=== PATIENT | female | born 1980 | race African-American/Black ===

== ENCOUNTER 2023-04-20 12:12 | Emergency (ER) | payer BC, SELFPAY ==
--- NOTE | 2023-04-20 12:15 | ED.GENADULT ---
HPI - General Adult General Chief complaint: Ear Stated complaint: Earache, Dizzy Time Seen by Provider: 04/20/23 12:15 Source: patient Mode of arrival: ambulatory Limitations: no limitations History of Present Illness HPI narrative: 42-year-old female patient presents to the [facility] with complaints of left ear pain for the past 2-3 days. Patient states she did take some Excedrin today. Patient states she has been getting a stabbing pain to the left ear denies any discharge. Denies any trauma to the ear. Denies any fevers, body aches or chills. Denies any runny nose or congestion or any other symptoms at this time. Related Data Allergies Allergy/AdvReac Type Severity Reaction Status Date / Time amoxicillin Allergy Severe Swelling Verified 04/20/23 12:29 of Lip/Tongue/Throat erythromycin base Allergy Severe Swelling Verified 04/20/23 12:30 of Lip/Tongue/Throat Penicillins Allergy Severe Swelling Verified 04/20/23 12:29 of Lip/Tongue/Throat tramadol AdvReac Mild Hives Verified 04/20/23 12:29 Review of Systems Review of Systems: CONSTITUTIONAL: Denies fever, chills, or sweats. EYES: Denies visual changes, redness, or discharge. ENT: Denies rhinorrhea, congestion, sore throat, Positive leftotalgia. CARDIOVASCULAR: Denies chest pain, palpitations, or edema. RESPIRATORY: Denies cough or dyspnea. GASTROINTESTINAL: Denies abdominal pain, nausea, vomiting, or diarrhea. GENITOURINARY: Denies dysuria or hematuria. SKIN: Denies rash or itching. MUSCULOSKELETAL: Denies back pain, joint pain, or myalgia. NEUROLOGIC: Denies headache, numbness, or weakness. PSYCHIATRIC: Denies anxiety or depression. PMFSH Comments At the time of my signature I agree with nursing past medical history, surgical, social, and family history. There is no relevant family history pertinent to the presenting complaint. Exam Narrative: GENERAL: Well-appearing, well-nourished, and in no acute distress. HEAD: Normocephalic, atraumatic. EYES: PERRLA and EOMI. ENT: Nares clear, no rhinorrhea or epistaxis. Mucous membranes moist. patient has narrowing and edema noted to the left ear canal unable to visualize the eardrum very well. There is pain with manipulation to the outer auricle. NECK: Supple. No lymphadenopathy CHEST: Clear to auscultation. No respiratory distress. HEART: Regular rate and rhythm. No murmur heard. Normal peripheral pulses. ABDOMEN: Soft, nontender, nondistended, normal active bowel sounds. EXTREMITIES: Normal range of motion. No edema. SKIN: Warm, dry, no rash. NEURO: No focal deficits. Alert and oriented x3. Course Course Level of Care: Express Care Visit Vital Signs Vital signs: Vital Signs Temperature 37.4 C 04/20/23 12:29 Pulse Rate 78 04/20/23 12:29 Respiratory Rate 16 04/20/23 12:29 Blood Pressure 114/73 04/20/23 12:29 Pulse Oximetry 100 04/20/23 12:29 Oxygen Delivery Room Air 04/20/23 12:29 Temperature 37.4 C 04/20/23 12:29 Pulse Rate 78 04/20/23 12:29 Respiratory Rate 16 04/20/23 12:29 Blood Pressure 114/73 04/20/23 12:29 Pulse Oximetry 100 04/20/23 12:29 Oxygen Delivery Room Air 04/20/23 12:29 Vital signs reviewed Medical Decision Making MDM Narrative Medical decision making narrative: plan cares to discharge home with antibiotic ear drops and encouraged to take [id number] ibuprofen to help with pain. Patient verbalized understanding denies any other questions or concerns at this time. Differential Diagnosis Differential Diagnosis: differential diagnosis: Otitis media, otitis externa, perforated TM, infection of the outer ear, foreign body or cerumen impaction, ruptured TM, acute mastoiditis, ligament otitis externa, dehydration, pneumonia, sepsis, dental or intraoral infection, TMJ dysfunction Vital Signs Vital Signs: Vital Signs Temperature 37.4 C 04/20/23 12:29 Pulse Rate 78 04/20/23 12:29 Respirat
[2023-04-20 12:29] VITALS: BP 114/73; PULSE 78; RESP 16; TEMP 37.4; O2SAT 100
== END 2023-04-20 12:42 | disposition home or self-care (01) ==
PROVIDERS: Emergency Provider Nurse Practitioner Family
DX: H60.92 Unspecified otitis externa, left ear (principal)
CPT/HCPCS: 99203; G0463

== ENCOUNTER 2024-05-04 12:41 | Emergency (ER) | payer OTHER, SELFPAY ==
[2024-05-04 12:51] VITALS: BP 104/59; PULSE 77; RESP 18; TEMP 36.8; O2SAT 100
--- NOTE | 2024-05-04 12:53 | ED.URI ---
HPI - URI/Sore Throat General Chief Complaint: Upper Respiratory Infection Stated Complaint: Cough, Sore Throat, Congestion, Ear Pain Time Seen by Provider: 05/04/24 12:59 Source: patient, RN notes reviewed and old records reviewed Mode of arrival: ambulatory Limitations: no limitations History of Present Illness HPI Narrative: patient began 1 week ago with URI symptoms that included runny nose, sore throat, cough. She states that she believes she probably had a fever at the onset of symptoms. fever has since subsided. She is now complaining of continued cough, hoarse voice, right ear pain and throat pain. She has taken multiple [id number] medications with moderate relief. denies any injury or trauma. no other concerns or complaints today Related Data Home Medications ?Medication ?Instructions ?Recorded ?Confirmed ?Last Taken ?Type cholecalciferol (vitamin D3) 25 25 mcg PO DAILY 05/04/24 Unknown History mcg (1,000 unit) capsule levothyroxine 25 mcg tablet mcg 05/04/24 Unknown History thiamine HCl (vitamin B1) 250 mg 250 mg PO DAILY 05/04/24 Unknown History tablet Allergies Allergy/AdvReac Type Severity Reaction Status Date / Time erythromycin base Allergy Severe Swelling Verified 05/04/24 13:01 of Lip/Tongue/Throat Penicillins Allergy Severe Swelling Verified 05/04/24 13:01 of Lip/Tongue/Throat tramadol Allergy Mild Hives Verified 05/04/24 13:01 Review of Systems Review of Systems: All systems reviewed & are unremarkable except as noted in HPI and below Constitutional: Constitutional: Reports as per HPI, Reports no additional constitutional complaints and Reports lethargy ENT: Reports system reviewed and no additional complaints, except as documented, Reports otalgia, Reports nasal congestion, Reports nasal discharge, Reports post nasal drip and Reports sore throat Cardiovascular: Cardiovascular: Reports no additional cardiovascular complaints Respiratory: Respiratory: Reports no additional respiratory complaints and Reports cough Gastrointestinal: Gastrointestinal: Reports no additional gastrointestinal complaints PMFSH Comments At the time of my signature, I reviewed and agree with the nursing past medical, surgical, social, and family history. There is no relevant family history pertinent to the patient complaint. Exam Const: General: cooperative, no acute distress, alert and awake Orientation/consciousness: oriented to person, oriented to place and oriented to time HENMT: Head: normal to inspection Ears: TM abnormal erythematous on the right, with fluid behind the TM on the left and with loss of landmarks bilateral Mouth: Yes moist mucous membranes Throat: posterior oropharynx abnormal erythema Resp: Effort & Inspection: normal respiratory effort and able to speak in complete sentences Auscultation: clear to auscultation bilaterally, no crackles, no rales, no rhonchi and no wheezes Cardio: Palpation: normal PMI Rate: regular rate Rhythm: regular rhythm Heart sounds: S1 normal heart sound present and S2 normal heart sound present Neuro: General: oriented to person, oriented to place and oriented to time Cranial nerves: Yes CN's II-XII intact bilaterally Psych: Appearance: grossly normal Thought process: Normal thought process present Insight: Good insight present (Psych) Judgement: Good judgement present (Psych) Course Course Level of Care: Express Care Visit Vital Signs Vital signs: Vital Signs Temperature 98.3 F 05/04/24 12:51 Pulse Rate 77 05/04/24 12:51 Respiratory Rate 18 05/04/24 12:51 Blood Pressure 104/59 L 05/04/24 12:51 Pulse Oximetry 100 05/04/24 12:51 Oxygen Delivery Room Air 05/04/24 12:51 Temperature 98.3 F 05/04/24 12:51 Pulse Rate 77 05/04/24 12:51 Respiratory Rate 18 05/04/24 12:51 Blood Pressure 104/59 L 05/04/24 12:51 Pulse Oximetry 100 05/04/24 12:51 Oxygen Delivery Room Air 05/04/24 12:51 Reviewed MDM - URI/Sore Throat MDM Narrative Medical decision making narrative: patient when otitis media, likely secondary to URI. Nontoxic appearing, stable for discharge home on p.o. antibiotic therapy with steroid burst. Discharge instructions reviewed with patient, as well as provided in writing per nursing staff. The instructions also include specific and strict return/GO TO THE ER as well as f/u information. All questions have been answered, and the patient deny any further questions with discharge and discharge plan. Some parts of this dictation were generated by voice recognition software and may contain typographical and/or grammatical inaccuracies. Differential Diagnosis Differential diagnosis: Likely upper respiratory infection, otitis media, sinusitis, viral infection, bronchitis and pharyngitis Medical Records Attestation: I reviewed the patient's medical records. Discharge Plan Discharge Clinical Impression: Otitis media Qualifiers: Otitis media type: suppurative Chronicity: acute Laterality: right Recurrence: not specified as recurrent Spontaneous tympanic membrane rupture: without spontaneous rupture Qualified Code(s): H66.001 - Acute suppurative otitis media without spontaneous rupture of ear drum, right ear Upper respiratory infection Qualifiers: URI type: unspecified viral URI Qualified Code(s): J06.9 - Acute upper respiratory infection, unspecified Patient Disposition: Home, Self-Care Condition: Stable Instructions: Antibiotic Form, Ear Infection (ED) Additional Instructions: take medications as prescribed. Follow with primary care provider. Emergency department for new or worse symptoms Patient Language: Romanian Prescriptions: New clindamycin HCl 300 mg capsule 300 mg PO TID Qty: 21 0RF prednisone 50 mg tablet 50 mg PO DAILY Qty: 5 0RF No Action levothyroxine 25 mcg tablet thiamine HCl (vitamin B1) 250 mg tablet 250 mg PO DAILY cholecalciferol (vitamin D3) 25 mcg (1,000 unit) capsule 25 mcg PO DAILY Follow-up/Referrals: UNKNOWN,DOCTOR [Primary Care Provider] - 2 Weeks Time of Disposition: 13:10
--- OUTSIDE RECORDS SUMMARY | 2024-05-04 13:10 | XMS_ITS | CONTINUITY OF CARE DOCUMENT ---
Author Name alva calle Address Unknown Organization [facility] Address [address] [place] [address] Phone [phone] Care Team Providers Care Camp Attendant Name Role Phone Prateek WALTER, Rony Unavailable [phone] ALLISON CHAMBERLAIN MD Unavailable ALLISON CHAMBERALIN MD Unavailable [phone] PROBLEMS Condition Status Date Provider Notes Deep Vein Thrombosis active ? Daysi arguello RN (History of) Pulmonary Embolism active ? Daysi Olivares RN (History of) ENCOUNTERS Date Type Provider Location Encounter Diag nosis - In-person encounter Office Visit Rony Chandra MD [facility] Office Deep Vein ThrombosisPulmonary Embolism VITAL SIGNS Date Observation Value Provider Body Mass Index (Ratio) 31.88 kg/m2 Natan Olivares RN blood pressure, cuff size regular Cr wyatt Lopez blood pressure, diastolic 69 mm[Hg] Cr wyatt Lopez blood pressure, systolic 120 mm[Hg] Cry stal John respiratory rate E&M 18 /min Keisha Lopez blood pressure, resting No Ame jostin Lopez pulse rate 90 /min Keisha guardado oxygen saturation, oximetry 99 % Keisha Lopez weight E&M 180 [lb_av] Keisha guardado height E&M 63 [in_i] Keisha guardado ALLERGIES Allergy Name Onset Date Reaction Criticality Status ERYTHROMYCIN High Criticality active TRAMADOL High Criticality active AMOXICILLIN Low Criticality active PENICILLIN breathing Low Criticality active HISTORY OF MEDICATION USE Medication Status Instructions Dates Provider Indications Com ments PROGESTERONE MICRONIZED 200 MG ORAL CAPSULE active daily Rony Chandra MD XARELTO 20 MG ORAL TABLET active take one tablet by mouth once daily Keisha Lopez SOCIAL HISTORY Date Observation Value Provider social history reviewed E&M reviewed - no changes required Rony Chandra MD social history E&M Patient has n ever smoked. Smoking History: P atient has never smoked. Rony Chandra MD smoking status Never smoker Rony Gutierrez FAMILY HISTORY Family Member Condition Father Family History of Hy pertension: Father Family History of Di abetes: Mother Family History of Se izure Disorders: INSURANCE PROVIDERS Payer name Policy type / Coverage type [facility] democrat ID [facility] [employer] [id number] ADVANCE DIRECTIVES Name Date DISCUSSED - NO DECISION MADE TREATMENT PLAN Date Name Performer Cardiology: 06/2017 s he had right leg cramp and severe pain. Found to have acute, occlussive right leg DVT (peroneal, popliteal). D iscussed conservative measures including thigh high 20-30mmHg compression stockings, leg elevation, and ambulation Rony Chandra MD Cardiology: follow-u p of PE, DVT. 06/2017 she had right leg cramp and severe pain. Found to have acute, occlussive right leg DVT (peroneal, popliteal). The next day, she had sudden onset of CP (described as someone standing on her chest) and couldn't breathe. 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 SHe had thrombectomy to right main pulmonary artery. She was sent home on Xarelto. Also her control was changed from estrogen based to progesterone based. W alks a lot at work, sometimes walks for 2 hours, stands a lot as well. Denies SOB, but has occasional CPs. [facility], she sometimes has left-sided chest pain, decribed as sharp pain, which radiates to upper left chest. Occurs at rest or with exertion. CP lasts 15-20 minutes. Feels better with pressure/massage. S ometimes she has pain which travels up her left neck, gets pounding headache, lasts 4-5 minutes and resolved. S he is non-smoker. S he works long days and has [address] to work [address] Rony Chandra MD HISTORY OF PROCEDURES Procedure Date Procedure Name Provider Procedure Notes S tatus EKG Rony Chandra MD completed
--- OUTSIDE RECORDS SUMMARY | 2024-05-04 13:10 | XMS_ITS | Clinical Summary ---
Author Organization [facility] Address [address] [place] [place] [address] Care Team Providers Care Nitric Acid Plant Operator Name Role Phone Antione Servin MD Primary Care Provider Unavaila ble Source Comments [facility],non-owned Affiliates and Associated Physician Practices is amultiple site organization consisting of ambulatory clinics and hospital sitesin [place], [place], [place]. This disclosure is being madepursuant to the Care Everywhere program and may not contain all information available regarding this patient. Last updated 17.[facility] Allergies Active Allergy Reactions Criticality Noted Date Comments Amoxicillin Shortness of Breath High 07/08/2017 Erythromycin 06/28/2009 Penicillins 06/28/2009 Peanut-Derived 06/28/2009 Medications * Be aware that medications may not be up to date on this document. Alwaysverify current medications with the patient. Medication Sig Dispensed Refills Start Date End Date Status cetirizine (ZYRTEC) 10 MG tablet Take 10 mg by mouth once daily Active rivaroxaban (XARELTO) 20 MG tabletIndications:Maricel p Vein Thrombosis Take 20 mg by mouth daily with food Reasons: Blood Clot in a Deep Vein Active oxyCODONE-acetaminoph en (PERCOCET) 5-325 MG tablet Take 1 tablet by mouth every 8 hours as needed for Pain 20 tablet 07/09/2017 Active Active Problems Problem Noted Date Diagnosed Date Altered mental status 07/08/2017 Facial droop 07/08/2017 Pulmonary embolus 06/13/2017 Chest pain 06/13/2017 Head injury 06/06/2010 Overview (01/06/2015): Injury, other and unspecified, knee, leg, ankle, and foot 06/05/2010 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 Overview (01/05/2018): IMO UPDT 01/06/2018 Iron deficiency anemia 07/03/2009 Leukocytosis, suspect 2/2 to steroids and PNA SOB (shortness of breath) 06/28/2009 Encounter for feeding tube placement 06/28/2009 Anaphylactic shock 06/28/2009 Systemic inflammatory response syndrome (SIRS) 0 06/28/2009 Resolved Problems Problem Noted Date Diagnosed Date Resolved Date Pneumonia due to organism 07/03/2009 Elevated troponin 06/29/2009 07/03/2009 Social History Tobacco Use Types Packs/Day Years Used Date Smoking Tobacco: Never Alcohol Use Standard Drinks/Week Comments Yes 0 (1 standard drink = 0.6 oz pur e alcohol) on occassion Sex and Gender Information Value Date Recorded Sex Assigned at Not on file Gender Identity Not on file Sexual Orientation Not on file Last Filed Vital Signs Vital Sign Reading Time Taken Comments Blood Pressure 100/64 07/09/2017 11:29 AM CDT Pulse 64 07/09/2017 11:29 AM CDT Temperature 36.8 ??C (98.2 ??F) 07/09/2017 11:29 AM C DT Respiratory Rate 16 07/09/2017 11:29 AM CDT Oxygen Saturation 100% 07/09/2017 11:29 AM CDT Inhaled Oxygen Concentration 40% 07/01/2009 1 0:00 AM CDT Weight 87.5 kg (193 lb) 07/08/2017 2:24 PM CDT Height 160 cm (5' 3 ) 07/08/2017 2:24 PM CDT Body Mass Index 34.19 07/08/2017 2:24 PM CDT Plan of Treatment Health Maintenance Due Date Last Done Comments MAMMOGRAM 1980 PAP SMEAR 1980 HIV SCREENING 12/23/1995 HEPATITIS C SCREENING 12/18/1998 DTAP/TDAP/TD VACCINES (1 - Tdap) 12/23/1999 HEPATITIS B VACCINE (1 of 3 - 19+ 3-dose series) 12/23/1999 LIPID TESTING 06/29/2014 06/29/2009 COVID-19 VACCINE (2023-2 5 season) 2023 INFLUENZA VACCINE (#1) 2023 DEPRESSION SCREENING 04/08/2024 ZOSTER VACCINE (1 of 2) 2030 HIB VACCINE Aged Out No longer eligi ble based on patient's age to complete this topic HPV VACCINE Aged Out No longer eligi ble based on patient's age to complete this topic MENINGOCOCCAL (Group B) VACCINE Aged Out No longer eligible based on patient's age to complete this topic MENINGOCOCCAL VACCINE Aged Out No jagdish varghese eligible based on patient's age to complete this topic PNEUMOCOCCAL VACCINE Aged Out No long er eligible based on patient's age to complete this topic Procedures Procedure Name Priority Date/Time Associated Diagnosis Comments LIPID PROFILE Add on 06/29/2009 12:10 AM CDT Pulm Congest/Hypostasis from Last 3 Months or Most Recently Relevant to Health Maintenance Results * (ABNORMAL) LIPID PROFILE (06/29/2009 12:10 AM CDT) Cholesterol 224(H) <200 mg/dl [facility] Triglycerides 101 <150 mg/dl [facility] HDL Cholesterol 41 >=40 mg/dl [facility] VLDL Calculated 20 <=30 mg/dl [facility] LDL Calculated 163(H) <100 mg/dl [facility] Cholesterol Risk Factor 5.46(H) <4.45 [facility] Comment Lipid [facility] Comment: ? Normal values based on [place] [employer] guidelines. ? LIPID PROFILE GUIDELINES ? Total Cholesterol ?Category ?-------- ? Less than 200 mg/dl ?Desirable level that puts you at lower ?risk for heart disease. ??A cholesterol ?level of 200 mg/dl or greater increases ?your risk. ? 200 to 239 mg/dl ? Borderline high ? 240 mg/dl and above ?High blood cholesterol. ??A person with ?this level has more than twice the risk ?of heart disease compared to someone ?whose cholesterol is below 200 mg/dl. ? HDL Cholesterol ?Category ?-------- ? Less than 40 mg/dl ? Low HDL cholesterol. ??A major risk ?factor for heart disease. ? 40 to 59 mg/dl ? Borderline low. ? 60 mg/dl and above ? High HDL cholesterol. ??An HDL of 60 ?and above is considered protective ?against heart disease. ? LDL Cholesterol ?Category ?-------- ? Less than 100 mg/dl ?Optimal ? 100 to 129 mg/dl ? Near or above optimal ? 130 to 159 mg/dl ? Borderline high ? 160 to 189 mg/dl ? High ? 190 mg/dl and above ?Very high ? Triglyceride ? Category ? -------- ? Less than 150 mg/dl ?Normal ? 150 to 199 mg/dl ? Borderline high ? 200 to 499 mg/dl ? High ? 500 mg/dl and above ?Very high BLOOD SPECIMEN / Unknown 06/29/2009 12:10 AM CDT 06/29/2009 7:56 AM CDT Alphonso Horton MD LAB - [facility] ORDERABLES [facility] [address] [place] [address] from Last 3 Months or Most Recently Relevant to Health Maintenance Advance Directives * Full Code (Latest Code Status on File) Date Activated Date Inactivated Comments 07/08/2017 2:12 PM 07/09/2017 6:35 PM * Full Code Date Activated Date Inactivated Comments 06/13/2017 11:23 PM 06/16/2017 3:32 PM * Full Code Date Activated Date Inactivated Comments 06/13/2017 6:47 PM 06/13/2017 11:23 PM * Full Code Date Activated Date Inactivated Comments 06/13/2017 5:43 PM 06/13/2017 6:47 PM * Full Code Date Activated Date Inactivated Comments 07/02/2009 7:36 PM 07/05/2009 5:06 AM Care Teams Nitric Acid Plant Operator Relationship Specialty Start Date End Date Antione Servin MD PCP - General Internal Medicine 07/08/17
--- OUTSIDE RECORDS SUMMARY | 2024-05-04 13:10 | XMS_ITS | Patient Health Summary ---
Author Organization [facility] Address [address] [place] [address] Care Team Providers Care Pharmacy Student Name Role Phone Antione Servin MD Primary Care Provider Unavaila ble Note from [facility],non-owned Affiliates and Associated Physician Practices is amultiple site organization consisting of ambulatory clinics and hospital sitesin [place] and [place]. This disclosure is being madepursuant to the Care Everywhere program and may not contain all information available regarding this patient. Last updated 17.[facility] Allergies * Amoxicillin(Shortness of Breath) -High Criticality * Erythromycin * Penicillins * Peanut-Derived Medications * Be aware that medications may not be up to date on this document. Alwaysverify current medications with the patient. 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 Iron deficiency anemia 07/03/2009 Leukocytosis, suspect 2/2 [...] Mass Index 34.19 07/08/2017 2:24 PM CDT Procedures * CARDIAC EKG ORDER(Performed 07/12/2017) * CARDIAC RHYTHM STRIP ORDER(Performed 07/12/2017) * MRI BRAIN WWO CONTRAST(Performed 07/09/2017) Performed for Altered mental status, unspecified altered mental status type * MRI ANGIO BRAIN ART LEE WO CONT(Performed 07/09/2017) Performed for Altered mental status, unspecified altered mental status type * CBC W AUTO DIFFERENTIAL(Performed 07/09/2017) Performed for Altered mental status, unspecified altered mental status type * BASIC METABOLIC PANEL (CALCIUM TOTAL)(Performed 07/09/2017) Performed for Altered mental status, unspecified altered mental status type * CARDIAC RHYTHM STRIP ORDER(Performed 07/08/2017) * TROPONIN I(Performed 07/08/2017) Performed for Facial droop * TROPONIN I(Performed 07/08/2017) Performed for Facial droop * XR CHEST 1VW PORTABLE(Performed 07/08/2017) Performed for SOB (shortness of breath), Chest pain, unspecified type, Facial droop * CT ANGIO CHEST PULM EMBOLISM(Performed 07/08/2017) Performed for SOB (shortness of breath), Chest pain, unspecified type, Facial droop * CT ANGIO BRAIN NECK STROKE(Performed 07/08/2017) Performed for Facial droop * INR WHOLE BLOOD - POINT OF CARE (IP) STROKE(Performed 07/08/2017) * CREATININE BLOOD - POINT OF CARE (IP)(Performed 07/08/2017) Performed for Facial droop * PT PTT PANEL(Performed 07/08/2017) Performed for Facial droop * NT-PRO BNP(Performed 07/08/2017) Performed for Facial droop * TROPONIN I(Performed 07/08/2017) Performed for Facial droop * COMPREHENSIVE METABOLIC PANEL(Performed 07/08/2017) Performed for Facial droop * CBC W AUTO DIFFERENTIAL(Performed 07/08/2017) Performed for Facial droop * EKG 12-LEAD(Performed 07/08/2017) Performed for SOB (shortness of breath), Chest pain, unspecified type, Facial droop * CT BRAIN STROKE(Performed 07/08/2017) Performed for Facial droop * GLUCOSE - POINT OF CARE(Performed 07/08/2017) * CARDIAC EKG ORDER(Performed 06/22/2017) * CARDIAC PROCEDURE ORDER(Performed 06/20/2017) * PT PTT PANEL(Performed 06/16/2017) * CBC W AUTO DIFFERENTIAL(Performed 06/16/2017) * PT PTT PANEL(Performed 06/15/2017) * CBC W AUTO DIFFERENTIAL(Performed 06/15/2017) * PTT(Performed 06/14/2017) * EKG 12-LEAD(Performed 06/14/2017) Performed for Chest pain on breathing * ECHOCARDIOGRAM 2D WITH DOPPLER(Performed 06/14/2017) Performed for Chest pain, unspecified type, Acute deep vein thrombosis (DVT) of proximal vein of right lower extremity (HCC), Other acute pulmonary embolism without acute cor pulmonale (HCC), Acute saddle pulmonary embolism without acute cor pulmonale (HCC), SOB (shortness of breath), Encounter forfeeding tube placement * PT PTT PANEL(Performed 06/14/2017) * T4 FREE DIRECT REFLEXED(Performed 06/14/2017) Performed for Other acute pulmonary embolism without acute cor pulmonale (HCC), Acute saddle pulmonary embolism without acute cor pulmonale (HCC) * PTT(Performed 06/14/2017) * TSH REFLEX FREE T4(Performed 06/14/2017) Performed for Other acute pulmonary embolism without acute cor pulmonale (HCC), Acute saddle pulmonary embolism without acute cor pulmonale (HCC) * BASIC METABOLIC PANEL (CALCIUM TOTAL)(Performed 06/14/2017) * CBC W AUTO DIFFERENTIAL(Performed 06/14/2017) * CULTURE VRE(Performed 06/13/2017) * CULTURE MRSA(Performed 06/13/2017) * ACT - POINT OF CARE(Performed 06/13/2017) Performed for Acute saddle pulmonary embolism without acute cor pulmonale (HCC) * CARDIAC CATH CONSULT(Performed 06/13/2017) * TROPONIN I(Performed 06/13/2017) * PTT(Performed 06/13/2017) * TROPONIN I(Performed 06/13/2017) * PULSE OXIMETRY, CONTINUOUS(Performed 06/13/2017) * ED CRITICAL CARE(Performed 06/13/2017) Performed for Acute saddle pulmonary embolism without acute cor pulmonale (HCC) * CT ANGIO CHEST PULM EMBOLISM(Performed 06/13/2017) Performed for Chest pain, unspecified type, Acute deep vein thrombosis (DVT) of proximal vein of right lower extremity (HCC) * XR CHEST 1VW PORTABLE(Performed 06/13/2017) Performed for Chest pain, unspecified type * PT PTT PANEL(Performed 06/13/2017) * HCG BLOOD QUALITATIVE(Performed 06/13/2017) * TROPONIN I(Performed 06/13/2017) * MAGNESIUM BLOOD(Performed 06/13/2017) * COMPREHENSIVE METABOLIC PANEL(Performed 06/13/2017) * CBC W AUTO DIFFERENTIAL(Performed 06/13/2017) * NT-PRO BNP(Performed 06/13/2017) * EKG 12-LEAD(Performed 06/13/2017) Performed for Chest pain, unspecified type * CARDIAC CATH(Performed 06/13/2017) * VAS RIGHT VENOUS DUPLEX LE(Performed 06/12/2017) Performed for Elevated d-dimer, Tenderness of right calf * HCG BETA BLOOD QUANTITATIVE(Performed 06/12/2017) * CK BLOOD(Performed 06/12/2017) * PT-INR(Performed 06/12/2017) * D-DIMER(Performed 06/12/2017) * COMPREHENSIVE METABOLIC PANEL(Performed 06/12/2017) * CBC W AUTO DIFFERENTIAL(Performed 06/12/2017) * CT HEAD WO CONTRAST(Performed 06/06/2010) Performed for Head injury, unspecified * XR FOOT LEFT 3VW OR MORE(Performed 06/06/2010) * XR ANKLE LEFT 3VW OR MORE(Performed 06/06/2010) * HCG URINE QUALITATIVE - POINT OF CARE(Performed 10/15/2009) * CARDIAC RHYTHM STRIP ORDER(Performed 07/15/2009) * GLUCOSE - POINT OF CARE(Performed 07/04/2009) Performed for Respiratory Abnorm NEC * CARDIAC RHYTHM STRIP ORDER(Performed 07/04/2009) * GLUCOSE - POINT OF CARE(Performed 07/04/2009) Performed for Respiratory Abnorm NEC * GLUCOSE - POINT OF CARE(Performed 07/03/2009) Performed for Respiratory Abnorm NEC * GLUCOSE - POINT OF CARE(Performed 07/03/2009) Performed for Respiratory Abnorm NEC * CK + CKMB PANEL(Performed 07/03/2009) Performed for Respiratory Abnorm NEC * TROPONIN I(Performed 07/03/2009) Performed for Respiratory Abnorm NEC * GLUCOSE - POINT OF CARE(Performed 07/03/2009) Performed for Respiratory Abnorm NEC * GLUCOSE - POINT OF CARE(Performed 07/03/2009) Performed for Respiratory Abnorm NEC * TROPONIN I(Performed 07/03/2009) Performed for Respiratory Abnorm NEC * BASIC METABOLIC PANEL (CALCIUM TOTAL)(Performed 07/03/2009) Performed for Respiratory Abnorm NEC * CBC W AUTO DIFFERENTIAL(Performed 07/03/2009) Performed for Respiratory Abnorm NEC * CK + CKMB PANEL(Performed 07/03/2009) Performed for Respiratory Abnorm NEC * CK + CKMB PANEL(Performed 07/02/2009) Performed for Respiratory Abnorm NEC * TROPONIN I(Performed 07/02/2009) Performed for Respiratory Abnorm NEC * GLUCOSE - POINT OF CARE(Performed 07/02/2009) Performed for Respiratory Abnorm NEC * BASIC METABOLIC PANEL (CALCIUM TOTAL)(Performed 07/02/2009) Performed for Shortness of Breath * CBC W AUTO DIFFERENTIAL(Performed 07/02/2009) Performed for Shortness of Breath * CULTURE BLOOD(Performed 07/02/2009) Performed for Shortness of Breath * XR CHEST 2VW(Performed 07/02/2009) Performed for SOB (Shortness of Breath) * BASIC METABOLIC PANEL (CALCIUM TOTAL)(Performed 07/02/2009) Performed for Pulm Congest/Hypostasis * CBC W AUTO DIFFERENTIAL(Performed 07/02/2009) Performed for Pulm Congest/Hypostasis * GLUCOSE - POINT OF CARE(Performed 07/01/2009) Performed for Pulm Congest/Hypostasis * GLUCOSE - POINT OF CARE(Performed 07/01/2009) Performed for Pulm Congest/Hypostasis * GLUCOSE - POINT OF CARE(Performed 07/01/2009) Performed for Pulm Congest/Hypostasis * XR CHEST 1VW PORTABLE(Performed 07/01/2009) Performed for Pulmonary Edema (HCC), SOB (Shortness of Breath) * GLUCOSE - POINT OF CARE(Performed 07/01/2009) Performed for Pulm Congest/Hypostasis * BLOOD GASES ARTERIAL(Performed 07/01/2009) Performed for Pulm Congest/Hypostasis * GLUCOSE - POINT OF CARE(Performed 07/01/2009) Performed for Pulm Congest/Hypostasis * BLOOD GASES ARTERIAL(Performed 07/01/2009) Performed for Pulm Congest/Hypostasis * GLUCOSE - POINT OF CARE(Performed 07/01/2009) Performed for Pulm Congest/Hypostasis * COMPREHENSIVE METABOLIC PANEL(Performed 07/01/2009) Performed for Pulm Congest/Hypostasis * CBC W AUTO DIFFERENTIAL(Performed 07/01/2009) Performed for Pulm Congest/Hypostasis * GLUCOSE - POINT OF CARE(Performed 07/01/2009) Performed for Pulm Congest/Hypostasis * GLUCOSE - POINT OF CARE(Performed 06/30/2009) Performed for Pulm Congest/Hypostasis * GLUCOSE - POINT OF CARE(Performed 06/30/2009) Performed for Pulm Congest/Hypostasis * GLUCOSE - POINT OF CARE(Performed 06/30/2009) Performed for Pulm Congest/Hypostasis * GLUCOSE - POINT OF CARE(Performed 06/30/2009) Performed for Pulm Congest/Hypostasis * XR CHEST 1VW PORTABLE(Performed 06/30/2009) Performed for Pulmonary Edema (HCC), SOB (Shortness of Breath) * CBC W AUTO DIFFERENTIAL(Performed 06/30/2009) Performed for Pulm Congest/Hypostasis * COMPREHENSIVE METABOLIC PANEL(Performed 06/30/2009) Performed for Pulm Congest/Hypostasis * GLUCOSE - POINT OF CARE(Performed 06/30/2009) Performed for Pulm Congest/Hypostasis * BLOOD GASES ARTERIAL(Performed 06/30/2009) Performed for Pulm Congest/Hypostasis * BLOOD GASES ARTERIAL(Performed 06/30/2009) Performed for Pulm Congest/Hypostasis * GLUCOSE - POINT OF CARE(Performed 06/30/2009) Performed for Pulm Congest/Hypostasis * GLUCOSE - POINT OF CARE(Performed 06/29/2009) Performed for Pulm Congest/Hypostasis * GLUCOSE - POINT OF CARE(Performed 06/29/2009) Performed for Pulm Congest/Hypostasis * POTASSIUM BLOOD(Performed 06/29/2009) Performed for Pulm Congest/Hypostasis * GLUCOSE - POINT OF CARE(Performed 06/29/2009) Performed for Pulm Congest/Hypostasis * CULTURE BLOOD(Performed 06/29/2009) Performed for Pulm Congest/Hypostasis * CULTURE BLOOD(Performed 06/29/2009) Performed for Pulm Congest/Hypostasis * ECHOCARDIOGRAM 2D WITH DOPPLER(Performed 06/29/2009) Performed for SOB (Shortness of Breath), Elevated Troponin * BENZODIAZEPINE URINE CONFIRMATION(Performed 06/29/2009) Performed for Pulm Congest/Hypostasis * URINE DRUG SCREEN IMMUNOASSAY(Performed 06/29/2009) Performed for Pulm Congest/Hypostasis * CK + CKMB PANEL(Performed 06/29/2009) Performed for Pulm Congest/Hypostasis * TROPONIN I(Performed 06/29/2009) Performed for Pulm Congest/Hypostasis * XR CHEST 1VW(Performed 06/29/2009) Performed for Pulmonary Edema (HCC), SOB (Shortness of Breath), Elevated Troponin * BLOOD GASES ARTERIAL(Performed 06/29/2009) Performed for Pulm Congest/Hypostasis * CT ANGIO CHEST(Performed 06/29/2009) Performed for SOB (Shortness of Breath) * B-TYPE NATRIURETIC PEPTIDE(Performed 06/29/2009) Performed for Pulm Congest/Hypostasis * LIPID PROFILE(Performed 06/29/2009) Performed for Pulm Congest/Hypostasis * HAPTOGLOBIN(Performed 06/29/2009) * LDH BLOOD(Performed 06/29/2009) * COMPREHENSIVE METABOLIC PANEL(Performed 06/29/2009) * CBC W AUTO DIFFERENTIAL(Performed 06/29/2009) * URINALYSIS REFLEX TO MICROSCOPIC NO CULTURE(Performed 06/29/2009) * HCG URINE QUALITATIVE(Performed 06/29/2009) * EKG 12-LEAD(Performed 06/29/2009) Performed for SOB (Shortness of Breath) * COAGULATION PANEL W D-DIMER(Performed 06/29/2009) * CULTURE VRE(Performed 06/29/2009) Performed for Pulm Congest/Hypostasis * CULTURE MRSA(Performed 06/29/2009) Performed for Pulm Congest/Hypostasis * CULTURE SPUTUM(Performed 06/29/2009) Performed for Pulm Congest/Hypostasis * LACTIC ACID BLOOD(Performed 06/28/2009) * CULTURE BLOOD(Performed 06/28/2009) Performed for Pulm Congest/Hypostasis * XR ABDOMEN KUB(Performed 06/28/2009) Performed for Encounter for Feeding Tube Placement * XR CHEST 1VW PORTABLE(Performed 06/28/2009) Performed for Pulmonary Edema (HCC), Allergy, Unspecified Not Elsewhere Classified, SOB (Shortness of Breath) * CK + CKMB PANEL(Performed 06/28/2009) * TROPONIN I(Performed 06/28/2009) * CULTURE BLOOD(Performed 06/28/2009) Performed for Pulm Congest/Hypostasis * BLOOD GASES ARTERIAL(Performed 06/28/2009) * XR CHEST 1VW PORTABLE(Performed 06/28/2009) Performed for Pulmonary Edema (HCC) * XR CHEST 1VW PORTABLE(Performed 06/28/2009) Performed for Allergy, Unspecified Not Elsewhere Classified * BLOOD GASES ART + COOX PANEL(Performed 06/28/2009) * XR CHEST 1VW PORTABLE(Performed 06/28/2009) * EKG 12-LEAD(Performed 06/28/2009) * HGB HCT PANEL(Performed 03/19/2008) Performed for Normal Delivery ([facility]) * URINALYSIS NO MICROSCOPIC NO CULTURE(Performed 03/19/2008) Performed for Normal Delivery ([facility]) * CULTURE URINE(Performed 03/19/2008) Performed for Normal Delivery ([facility]) * TYPE + SCREEN PANEL(Performed 03/19/2008) Performed for Normal Delivery ([facility]) * CBC W AUTO DIFFERENTIAL(Performed 03/19/2008) Performed for Normal Delivery ([facility]) Results * CARDIAC EKG ORDER (07/12/2017 7:33 PM CDT) Only the most recent of2 resultswithin the time period is included. Narrative 07/12/2017 7:33 PM CDT Ordered by an unspecified provider. Scanned Document CARDIAC SERVICES ORD ERABLES * CARDIAC RHYTHM STRIP ORDER (07/12/2017 1:38 AM CDT) Only the most recent of4 resultswithin the time period is included. Narrative 07/12/2017 1:38 AM CDT Ordered by an unspecified provider. Scanned Document CARDIAC SERVICES ORD ERABLES * MRI BRAIN WWO CONTRAST (07/09/2017 9:54 AM CDT) Anatomical Region Laterality Modality Head Magnetic Resonan ce 07/09/2017 11:0 2 AM CDT Impressions 07/09/2017 11:08 AM CDT Normal brain MRI. Narrative 07/09/2017 11:08 AM CDT MRI Brain With and Without Contrast Indication: Altered mental status Technique: Multisequence, multiplanar sequences of the brain with and without contrast, ??Dotarem 19 cc was administered. Findings: Prior CT brain from July 08, 2017. Prior CTA head and neck from July 08, 2017. The sella is unremarkable. No Chiari malformation. ??No diffusion restriction is seen to indicate ischemia. ??No mass, hemorrhage, or midline shift is seen. The ventricular size is normal. There are no extra-axial fluid collections. Flow void is seen in the major intracranial vessels. No abnormal enhancement is seen. The paranasal sinuses and mastoid air cells are clear. Procedure Note Nabor Bray MD - 07/09/2017 MRI Brain With and Without Contrast Indication: Altered mental status Technique: Multisequence, multiplanar sequences of the brain with and without contrast, Dotarem 19 cc was administered. Findings: Prior CT brain from July 08, 2017. Prior CTA head and neck from July 08, 2017. The sella is unremarkable. No Chiari malformation. No diffusion restriction is seen to indicate ischemia. No mass, hemorrhage, or midline shift is seen. The ventricular size is normal. There are no extra-axial fluid collections. Flow void is seen in the major intracranial vessels. No abnormal enhancement is seen. The paranasal sinuses and mastoid air cells are clear. IMPRESSION Normal brain MRI. Ameirco Bertrand MD MR ORDERABLES * MRI ANGIO BRAIN ART LEE WO CONT (07/09/2017 9:53 AM CDT) Anatomical Region Laterality Modality Head Magnetic Resonan ce 07/09/2017 11:0 8 AM CDT Impressions 07/09/2017 1:44 PM CDT Negative Narrative 07/09/2017 1:44 PM CDT MR of the head without contrast HISTORY: Altered mental status TECHNIQUE: Lawd-jz-meiaeh magnetic resonance venography of the head with MIP reconstructions FINDINGS: The right transverse sinus is dominant. No sinus thrombosis or cortical vein thrombosis is seen. Procedure Note Nabor Bray MD - 07/09/2017 MR of the head without contrast HISTORY: Altered mental status TECHNIQUE: Syfi-ma-fuiivr magnetic resonance venography of the head with MIP reconstructions FINDINGS: The right transverse sinus is dominant. No sinus thrombosis or cortical vein thrombosis is seen. IMPRESSION Negative Americo Bertrand MD MR ORDERABLES * CBC W AUTO DIFFERENTIAL (07/09/2017 3:57 AM CDT) Only the most recent of14 resultswithin the time period is included. WBC 5.1 4.4 - 10.7 x10E9/L 07/09/2017 4:58 AM CDT [facility] WBC Corrected x10E9/L 07/09/2017 4:58 AM CDT [facility] RBC 4.16 3.80 - 5.20 x10E12/L 07/09/2017 4:58 AM CDT [facility] Hemoglobin 12.4 12.0 - 15.6 gm/dL 07/09/2017 4:58 AM CDT [facility] Hematocrit 37.1 35.9 - 45.5 % 07/09/2017 4:58 AM CDT [facility] MCV 89.2 80.7 - 98.3 fl 07/09/2017 4:58 AM CDT [facility] MCH 29.8 26.7 - 34.0 pg 07/09/2017 4:58 AM CDT [facility] MCHC 33.4 30.8 - 35.9 gm/dL 07/09/2017 4:58 AM CDT [facility] Platelet Count 315 153 - 416 x10E9/L 07/09/2017 4:58 AM CDT [facility] RDW-CV 13.2 12.1 - 14.9 % 07/09/2017 4:58 AM CDT [facility] MPV 9.9 9.4 - 12.9 fl 07/09/2017 4:58 AM T [facility] Neutrophils % 53.2 44.0 - 73.0 % 07/09/2017 4:58 AM T [facility] Lymphocytes % 35.9 20.0 - 43.0 % 07/09/2017 4:58 AM T [facility] Monocytes % 7.6 5.0 - 13.0 % 07/09/2017 4:58 AM T [facility] Eosinophils % 2.7 0.0 - 6.0 % 07/09/2017 4:58 AM T [facility] Basophils % 0.4 0.0 - 2.0 % 07/09/2017 4:58 AM T [facility] Immature Granulocytes 0.2 0 - 1 % 07/09/2017 4:58 AM T [facility] Neutrophil Absolute 2.71 2.01 - 7.14 x10E9/L 07/09/2017 4:58 AM T [facility] Lymphocytes Absolute 1.83 1.07 - 3.94 x10E9/L 07/09/2017 4:58 AM T [facility] Monocytes Absolute 0.39 0.26 - 1.07 x10E9/L 07/09/2017 4:58 AM T [facility] Eosinophils Absolute 0.14 0 - 0.47 x10E9/L 07/09/2017 4:58 AM T [facility] Basophils Absolute 0.02 0 - 0.08 x10E9/L 07/09/2017 4:58 AM T [facility] Immature Granulocytes Absolute 0.01 0.00 - 0.06 x10E9/L 07/09/2017 4:58 AM [facility] nRBC Auto 0 /100 WBC 07/09/2017 4:58 AM [facility] Blood BLOOD SPECIMEN / Unknown Venipuncture / Unknown 07/09/2017 3:57 AM CDT 07/09/2017 4:47 AM CDT Americo Bertrand MD LAB - HEMATOLOGY ORD ERABLES Performing Organization Address City/[facility]/ZIP Co de Phone Number [facility] [address] [place] [address] * BASIC METABOLIC PANEL (CALCIUM TOTAL) (07/09/2017 3:57 AM CDT) Only the most recent of5 resultswithin the time period is included. [facility] Glucose 81 74 - 106 mg/dL 07/09/2017 5:17 AM CDT [facility] Sodium 140 136 - 145 mmol/L 07/09/2017 5:17 AM CDT [facility] Potassium 3.7 3.5 - 5.1 mmol/L 07/09/2017 5:17 AM CDT [facility] Chloride 107 98 - 107 mmol/L 07/09/2017 5:17 AM CDT [facility] CO2 22 22 - 31 mmol/L 07/09/2017 5:17 AM CDT [facility] Calcium 9.3 8.5 - 10.1 mg/dL 07/09/2017 5:17 AM CDT [facility] Anion Gap 11 8 - 16 mmol/L 07/09/2017 5:17 AM CDT [facility] BUN 9 7 - 21 mg/dL 07/09/2017 5:17 AM CDT [facility] Creatinine 0.97 0.50 - 1.30 mg/dL 07/09/2017 5:17 AM CDT [facility] eGFR by MDRD >60 >60 mL/min/1.7 3m2 07/09/2017 5:17 AM CDT [facility] eGFR by MDRD >60 >60 mL/min/1.7 3m2 07/09/2017 5:17 AM CDT [facility] Blood BLOOD SPECIMEN / Unknown Venipuncture / Unknown 07/09/2017 3:57 AM CDT 07/09/2017 4:47 AM CDT Ameirco Bertrand MD LAB - CHEMISTRY ORDE RABCARLA Performing Organization Address City/[facility]/ZIP Co de Phone Number [facility] [address] [place] [address] * TROPONIN I (07/08/2017 5:58 PM CDT) Only the most recent of11 resultswithin the time period is included. Troponin I <0.015 0.000 - 0.049 ng/mL 07/08/2017 6:18 PM CDT [facility] Blood BLOOD SPECIMEN / Unknown Venipuncture / Unknown 07/08/2017 5:58 PM CDT 07/08/2017 6:00 PM CDT Narrative [facility] - 07/08/2017 6:18 PM CDT Note: Diagnosis of myocardial infarction requires symptoms of ischemia or EKG changes of ischemia and Troponin I >99th of normal (0.05 ng/mL). Troponin should be drawn on initial assessment and 3-6 hours later as clinically indicated. Any condition resulting in myocardial cell damage can increase cardiac troponin levels. In addition to myocardial infarction, these include but are not limited to congestive heart failure (CHF), arrhythmia, myocarditis, and non-cardiac related causes such as pulmonary embolism, renal failure and sepsis. Americo Bertrand MD LAB - [facility] Organization Address City/State/ZIP Co de Phone Number [facility] [address] [place] [id number] * XR CHEST 1VW PORTABLE (07/08/2017 12:04 PM CDT) Only the most recent of8 resultswithin the time period is included. Anatomical Region Laterality Modality Chest Radiographic Cyndie ging 07/08/2017 12:2 5 PM CDT Impressions 07/08/2017 12:26 PM CDT No acute disease. Narrative 07/08/2017 12:26 PM CDT Portable Chest AP History: Shortness of breath. COMPARISON: June 13, 2017 FINDINGS: The lungs are clear without airspace consolidation or pulmonary edema. No pneumothorax or pleural effusion is seen. The cardiomediastinal contour is unremarkable. Procedure Note José Antonio Holliday MD - 07/08/2017 Portable Chest AP History: Shortness of breath. COMPARISON: June 13, 2017 FINDINGS: The lungs are clear without airspace consolidation or pulmonary edema. No pneumothorax or pleural effusion is seen. The cardiomediastinal contour is unremarkable. IMPRESSION No acute disease. Americo Bertrand MD DIAGNOSTIC IMAGING O RDERABLES * CT CHEST PE (07/08/2017 11:45 AM CDT) Only the most recent of2 resultswithin the time period is included. Anatomical Region Laterality Modality Chest Computed Tomogra phy 07/08/2017 12:1 7 PM CDT Impressions 07/08/2017 12:20 PM CDT Previously described pulmonary emboli have resolved Narrative 07/08/2017 12:[address] Thorax With Contrast CT MIP reconstructions Clinical Indication: Chest pain, shortness of breath Comparison: 06/13/2017 Technique: The pulmonary embolus protocol was utilized. Axial CT images from the lung apices to the lung bases were obtained following 60 cc Visipaque 320 contrast administration. Coronal maximum intensity projection reconstructions were created on an independent workstation. FINDINGS: Previously described pulmonary emboli are no longer identified. Heart size is stable. There is no pericardial or pleural effusion. There is no focal consolidation. There is no pneumothorax. A discrete pulmonary mass is not identified. There is prominence of the central pulmonary vascularity. Procedure Note Vineet Mendiola MD - 07/08/2017 CT Thorax With Contrast CT MIP reconstructions Clinical Indication: Chest pain, shortness of breath Comparison: 06/13/2017 Technique: The pulmonary embolus protocol was utilized. Axial CT images from the lung apices to the lung bases were obtained following 60 cc Visipaque 320 contrast administration. Coronal maximum intensity projection reconstructions were created on an independent workstation. FINDINGS: Previously described pulmonary emboli are no longer identified. Heart size is stable. There is no pericardial or pleural effusion. There is no focal consolidation. There is no pneumothorax. A discrete pulmonary mass is not identified. There is prominence of the central pulmonary vascularity. IMPRESSION Previously described pulmonary emboli have resolved Americo Bertrand MD CT ORDERABLES * CT ANGIO BRAIN NECK STROKE (07/08/2017 11:32 AM CDT) Anatomical Region Laterality Modality Head Computed Tomogra phy 07/08/2017 11:5 2 AM CDT Impressions 07/08/2017 11:56 AM CDT No evidence of hemodynamically significant stenosis. CTA Brain: The internal carotid arteries, middle cerebral arteries, anterior cerebral arteries, vertebral arteries, posterior cerebral arteries, basilar artery, and branch vessels of the [place] are widely patent without evidence of vessel stenosis or vessel occlusion. No intracranial aneurysms are identified. Impression: No flow-limiting intracranial arterial stenosis. Narrative 07/08/2017 11:[address] angiography neck with contrast CT angiography head with contrast CT 3D Reconstruction Clinical Indication: Left-sided facial droop, left-sided weakness, acute stroke, CVA Technique: Axial CT images from the transverse aortic arch through the cranial vertex were obtained following the administration of 80 cc Omnipaque-350 intravenous contrast. Multiplanar reformatted, maximum intensity projection, and 3D volume rendered reconstructions of the arterial vasculature of the neck and brain was performed on an independent workstation. Findings: CTA Neck: Indirect assessment of the distal portions of the bilateral internal carotid arteries relative to the proximal portions reveals no hemodynamically significant stenosis. There is wide patency of the common carotid, internal carotid, external carotid, and vertebral arteries. There is no evidence of vessel stenosis or vessel occlusion. The left vertebral artery is dominant. Procedure Note Coco Wang MD - 07/08/2017 CT angiography neck with contrast CT angiography head with contrast CT 3D Reconstruction Clinical Indication: Left-sided facial droop, left-sided weakness, acute stroke, CVA Technique: Axial CT images from the transverse aortic arch through the cranial vertex were obtained following the administration of 80 cc Omnipaque-350 intravenous contrast. Multiplanar reformatted, maximum intensity projection, and 3D volume rendered reconstructions of the arterial vasculature of the neck and brain was performed on an independent workstation. Findings: CTA Neck: Indirect assessment of the distal portions of the bilateral internal carotid arteries relative to the proximal portions reveals no hemodynamically significant stenosis. There is wide patency of the common carotid, internal carotid, external carotid, and vertebral arteries. There is no evidence of vessel stenosis or vessel occlusion. The left vertebral artery is dominant. IMPRESSION No evidence of hemodynamically significant stenosis. CTA Brain: The internal carotid arteries, middle cerebral arteries, anterior cerebral arteries, vertebral arteries, posterior cerebral arteries, basilar artery, and branch vessels of the [place] are widely patent without evidence of vessel stenosis or vessel occlusion. No intracranial aneurysms are identified. Impression: No flow-limiting intracranial arterial stenosis. Americo Bertrand MD CT ORDERABLES * INR WHOLE BLOOD - POINT OF CARE (IP) STROKE (07/08/2017 11:25 AM CDT) INR POCT 1.1 0.9 - 1.2 [facility] POCT TESTING QC Verified Yes Yes [facility] POC T TESTING Blood BLOOD SPECIMEN / Unknown 07/08/2017 11:25 AM CDT Mellissa Tyson MD LAB - POINT OF CARE ORDERABLES Performing Organization Address [facility] Co de Phone Number [facility] PO[facility] TESTING [id number] [place] [address], [facility] [phone] * CREATININE BLOOD - POINT OF CARE (IP) (07/08/2017 11:25 AM CDT) Creatinine POCT 0.96 0.7 - 1.2 mg/dL [facility] POCT TESTING QC Verified Yes Yes [facility] POC T TESTING Blood BLOOD SPECIMEN / Unknown 07/08/2017 11:25 AM CDT Americo Bertrand MD LAB - POINT OF CARE ORDERABLES Performing Organization Address [facility] Co de Phone Number [facility] [id number] [place] [address], [facility] [phone] * NT-PRO BNP (07/08/2017 11:23 AM CDT) Only the most recent of2 resultswithin the time period is included. NT-proBNP 31.0 <300.0 pg/mL 07/08/2017 11:49 AM CDT [facility] Blood BLOOD SPECIMEN / Unknown Venipuncture / Unknown 07/08/2017 11:23 AM CDT 07/08/2017 11:28 AM CDT Narrative [facility] - 07/08/2017 11:49 AM CDT NT-proBNP Patient Age ? Acute HF Unlikely ? Acute HF Likely <50 years ? <300 pg/mL ? >450 pg/mL 50-75 years ?<300 pg/mL ? >900 pg/mL >75 years ? <300 pg/mL ? >1800 pg/mL Reference: PEYTON Witt et al. ICON Study. Heart Journal (2006) 27, [phone] Both BNP and NT-proBNP derive from the precursor molecule called proBNP which is secreted from the ventricles in response to ventricle volume expansion and/or pressure overload. The secreted proBNP is subsequently cleaved by enzymes to form BNP, the active hormone and NT-proBNP an inactive metabolite. NT-proBNP has a longer half-life of 1.5-2.0 hours verses BNP with a half-life of 20 min for BNP. Both are useful biomarkers of ventricular distension due to increased intracardiac pressure. Both BNP and NT-proBNP increase with age and renal insufficiency. Increased concentrations of NT-proBNP have also been observed in the setting of acute myocardial infarction, right ventricular failure, valvular heart disease, and atrial fibrillation. Americo Bertrand MD LAB - CHEMISTRY [facility] Organization Address City/State/ZIP Co de Phone Number [facility] [address] [place] [address] * PT PTT PANEL (07/08/2017 11:23 AM CDT) Only the most recent of5 resultswithin the time period is included. PT 11.0 9.5 - 11.6 sec 07/08/2017 11:43 AM CDT [facility] INR 1.0 0.9 - 1.1 07/08/2017 11:43 AM CDT [facility] PTT 25.6 21.0 - 32.0 sec 07/08/2017 11:43 AM CDT [facility] Blood BLOOD SPECIMEN / Unknown Venipuncture / Unknown 07/08/2017 11:23 AM CDT 07/08/2017 11:28 AM CDT Narrative [facility] - 07/08/2017 11:43 AM CDT Conventional Warfarin Anticoagulant Therapy: INR Reference Range: ??2.0-3.0 Intensive Warfarin Anticoagulant Therapy: INR Reference Range: ? 2.5-3.5 Heparin Therapeutic Range for PTT: 47.7 - 68.6 seconds. Americo Bertrand MD LAB - COAGULATION OR DERABLES [facility] [address] [place] [address] * (ABNORMAL) COMPREHENSIVE METABOLIC PANEL (07/08/2017 11:23 AM CDT) Only the most recent of6 resultswithin the time period is included. [facility] Glucose 86 74 - 106 mg/dL 07/08/2017 11:48 AM CDT [facility] Sodium 139 136 - 145 mmol/L 07/08/2017 11:48 AM CDT [facility] Potassium 3.9 3.5 - 5.1 mmol/L 07/08/2017 11:48 AM CDT [facility] Chloride 108(H) 98 - 107 mmol/L 07/08/2017 11:48 AM CDT [facility] CO2 24 22 - 31 mmol/L 07/08/2017 11:48 AM CDT [facility] Calcium 8.5 8.5 - 10.1 mg/dL 07/08/2017 11:48 AM CDT [facility] Anion Gap 7(L) 8 - 16 mmol/L 07/08/2017 11:48 AM CDT [facility] BUN 6(L) 7 - 21 mg/dL 07/08/2017 11:48 AM CDT [facility] Creatinine 1.10 0.50 - 1.30 mg/dL 07/08/2017 11:48 AM CDT [facility] Alkaline Phosphatase 88 38 - 126 U/L 07/08/2017 11:48 AM CDT [facility] ALT 20 13 - 61 U/L 07/08/2017 11:48 AM CDT [facility] AST 15 5 - 40 U/L 07/08/2017 11:48 AM CDT [facility] Protein Total 7.6 6.4 - 8.2 gm/dL 07/08/2017 11:48 AM CDT [facility] Albumin 3.7 3.4 - 5.0 gm/dL 07/08/2017 11:48 AM CDT [facility] Bilirubin Total 0.9 0.2 - 1.0 mg/dL 07/08/2017 11:48 AM CDT [facility] eGFR by MDRD 56(L) >60 mL/min/1.7 3m2 07/08/2017 11:48 AM CDT [facility] eGFR by MDRD >60 >60 mL/min/1.7 3m2 07/08/2017 11:48 AM CDT [facility] Blood BLOOD SPECIMEN / Unknown Venipuncture / Unknown 07/08/2017 11:23 AM CDT 07/08/2017 11:28 AM CDT Americo Bertrand MD LAB - CHEMISTRY ORDE TRIST[place] [facility] [address] [place] [address] * EKG 12-LEAD (07/08/2017 11:18 AM CDT) Only the most recent of5 resultswithin the time period is included. Ventricular Rate 89 BPM [facility] MUSE Atrial Rate 89 BPM [facility] P-R Interval 134 ms [facility] QRS Duration ms 80 ms [facility] Q-T Interval ms 364 ms [facility] M[facility] QTC Calculation (Bezet) 442 ms [facility] MUSE Calculated P [place] 25 degrees [facility] MUSE Calculated R [place] 40 degrees [facility] MUSE Calculated T [place] 23 degrees [facility] Interpretation EKG Normal sinus rhythm Normal ECG Confirmed by BLANCHE MORENO MD ([id number]) on 07/08/2017 3:47:49 PM [facility] MUSE 07/08/2017 11:1 8 AM CDT 07/08/2017 3:47 PM CDT Americo Bertrand MD ECG ORDERABLES DP MUSE * CT BRAIN STROKE PROTOCOL (07/08/2017 11:13 AM CDT) Anatomical Region Laterality Modality Head Computed Tomogra phy 07/08/2017 11:2 0 AM CDT Narrative 07/08/2017 11:22 AM CDT Examination: Noncontrast CT brain. Indication for examination: Cerebral infarction with left-sided numbness and weakness. An emergency noncontrast CT examination of the brain is performed with 5 mm helical technique. Comparison is made with June 06, 2010. No acute intracranial hemorrhage is identified. There is no mass lesion or fluid collection. No discrete parenchymal abnormality is identified. Ventricles and subarachnoid pathways are normal in size and configuration. CONCLUSION: Unremarkable CT brain. No change from the previous. Procedure Note José Antonio Bobby MD - 07/08/2017 Examination: Noncontrast CT brain. Indication for examination: Cerebral infarction with left-sided numbness and weakness. An emergency noncontrast CT examination of the brain is performed with 5 mm helical technique. Comparison is made with June 06, 2010. No acute intracranial hemorrhage is identified. There is no mass lesion or fluid collection. No discrete parenchymal abnormality is identified. Ventricles and subarachnoid pathways are normal in size and configuration. CONCLUSION: Unremarkable CT brain. No change from the previous. Americo Bertrand MD CT ORDERABLES * GLUCOSE - POINT OF CARE (07/08/2017 11:11 AM CDT) Only the most recent of24 resultswithin the time period is included. Glucose WB/POC 100 70 - 106 mg/dL 07/09/2017 9:21 AM CDT [facility] Specimen Type UNKNOWN SAMPLE TYPE 07/09/2017 9:21 AM CDT [facility] Blood BLOOD SPECIMEN / Unknown 07/08/2017 11:11 AM CDT 07/09/2017 9:21 AM CDT Americo Bertrand MD LAB - POINT OF CARE ORDERABLES [facility] [address] [place] [address] * CARDIAC PROCEDURE ORDER (06/20/2017 3:03 AM CDT) Narrative 06/20/2017 3:03 AM CDT Ordered by an unspecified provider. Scanned Document CARDIAC SERVICES ORD ERABLES * (ABNORMAL) PTT (06/14/2017 4:42 PM EPIC MANAGER) Only the most recent of3 resultswithin the time period is included. PTT 55.5(H) 21.0 - 32.0 sec 06/14/2017 5:07 PM EPIC MANAGER [facility] Blood BLOOD SPECIMEN / Unknown Venipuncture / Unknown 06/14/2017 4:42 PM EPIC MANAGER 06/14/2017 4:51 PM EPIC MANAGER Narrative [facility] - 06/14/2017 5:07 PM EPIC MANAGER Heparin Therapeutic Range for PTT: 47.7 - 68.6 seconds. Barbara Wood MD LAB - COAGULATION OR DERABLES [facility] [address] [place], [place] [id number] * ECHOCARDIOGRAM 2D WITH DOPPLER (06/14/2017 9:23 AM EPIC MANAGER) Only the most recent of2 resultswithin the time period is included. 06/14/2017 9:23 AM EPIC MANAGER Narrative [facility] - 06/15/2017 11:23 AM EPIC MANAGER [address] [address] Transthoracic Echocardiogram 2D, M-mode, Doppler, and Color Doppler Patient: RADHA MCKEON MR number: [id number] Height: 63 in Weight: 175.6 lb BSA: 1.83 m?? Study date: 14-Jun-2017 : 1980 Age: 36 years Gender: Female Race: Black Allergies: PENICILLINS, ERYTHROMYCIN, PEANUT-DERIVED Reading Physician: ??Tori Chandra MD Referring Physician: ??Tori Chandra MD WEAVE DEFECT CHARTING CLERK: ??Harmony Lopez [facility] Cardiology Group: ??[facility] Summary: - ??History: - ??DVT - ??Procedure information: - ??Room 306 @ 0923 - ??Left ventricle: - ??Systolic function was normal. Ejection fraction was estimated in the range of 55 % to 65 %. - ??There were no regional wall motion abnormalities. - ??Wall thickness was normal. - ??Doppler parameters were consistent with abnormal left ventricular relaxation (grade 1 diastolic dysfunction). - ??Right ventricle: - ??The ventricle was moderately dilated. - ??Systolic function was mildly reduced. - ??Pulmonary arteries: - ??Systolic pressure was moderately increased. Estimated peak pressure was 50 mmHg. - ??Tricuspid valve: - ??There was mild to moderate regurgitation. Indications: Evaluate chest pain. History: Prior history: DVT Procedure: The study was performed in the [facility]. This was a routine study. Room 306 @ 0923 The transthoracic approach was used. The study included complete 2D imaging, M-mode, complete spectral Doppler, and color Doppler. Systolic blood pressure was 115 mmHg. Diastolic blood pressure was 77 mmHg. Image quality was adequate. Left ventricle: Size was normal. Systolic function was normal. Ejection fraction was estimated in the range of 55 % to 65 %. There were no regional wall motion abnormalities. Wall thickness was normal. Doppler: Doppler parameters were consistent with abnormal left ventricular relaxation (grade 1 diastolic dysfunction). There was no evidence of elevated ventricular filling pressure by Doppler parameters. Aortic valve: The valve was trileaflet. Leaflets exhibited normal thickness and normal cuspal separation. Doppler: There was no stenosis. There was no regurgitation. Aorta: The root exhibited normal size. Mitral valve: Valve structure was normal. There was normal leaflet separation. Doppler: The transmitral velocity was within the normal range. There was no evidence for stenosis. There was no regurgitation. Left atrium: Size was normal. Right ventricle: The ventricle was moderately dilated. Systolic function was mildly reduced. Wall thickness was normal. Pulmonic valve: Leaflets exhibited normal thickness, no calcification, and normal cuspal separation. Doppler: There was no regurgitation. Pulmonary artery: The size was normal. Doppler: Systolic pressure was moderately increased. Estimated peak pressure was 50 mmHg. Tricuspid valve: The valve structure was normal. There was normal leaflet separation. Doppler: The transtricuspid velocity was within the normal range. There was no evidence for tricuspid stenosis. There was mild to moderate regurgitation. Right atrium: Size was normal. Pericardium: The pericardium was normal in appearance. System measurement tables 2D LVOT Diam: 2 cm IVSd: 1 cm LVEDV MOD A4C: 74.9 ml LVESV MOD A4C: 17 ml LVIDd: 4.4 cm LVIDs: 2.9 cm LVPWd: 1 cm CW PV Vmax: 1 m/s AV Vmax: 1 m/s AV maxP.1 mmHg AV meanP.3 mmHg PV maxP mmHg TR Vmax: 3.3 m/s TR maxP.5 mmHg MM LA Diam: 2.5 cm Ao Diam: 2.7 cm PW LVOT Vmax: 0.9 m/s Lateral E/e': 3.1 Septal E/e': 4.5 ESTELITA (VTI): 2.5 cm2 ESTELITA Vmax: 2.9 cm2 LVOT Env.Ti: 229.2 ms LVOT Vmean: 0.6 m/s Lateral e': 0.1 m/s MV A [place]: 0.6 m/s MV Dec [place]: 2.2 m/s2 MV DecT: 212.2 ms MV E [place]: 0.5 m/s MV E/A Ratio: 0.8 Septal e': 0.1 m/s Prepared and signed by Tori Chandra MD Signed 15-Jun-2017 11:23:38 Procedure Note Unknown, Provider, - 06/15/[address] [address] Transthoracic Echocardiogram 2D, M-mode, Doppler, and Color Doppler Patient: RADHA MCKEON MR number: [id number] Height: 63 in Weight: 175.6 lb BSA: 1.83 m?? Study date: 14-Jun-2017 : 1980 Age: 36 years Gender: Female Race: Black Allergies: PENICILLINS, ERYTHROMYCIN, PEANUT-DERIVED Reading Physician: Tori Chandra MD Referring Physician: Tori Chandra MD WEAVE DEFECT CHARTING CLERK: Harmony Lopez RDCS Cardiology Group: [facility] Summary: - History: - DVT - Procedure information: - Room 306 @ 0923 - Left ventricle: - Systolic function was normal. Ejection fraction was estimated in the range of 55 % to 65 %. - There were no regional wall motion abnormalities. - Wall thickness was normal. - Doppler parameters were consistent with abnormal left ventricular relaxation (grade 1 diastolic dysfunction). - Right ventricle: - The ventricle was moderately dilated. - Systolic function was mildly reduced. - Pulmonary arteries: - Systolic pressure was moderately increased. Estimated peak pressure was 50 mmHg. - Tricuspid valve: - There was mild to moderate regurgitation. Indications: Evaluate chest pain. History: Prior history: DVT Procedure: The study was performed in the [facility]. This was a routine study. Room 306 @ 0923 The transthoracic approach was used. The study included complete 2D imaging, M-mode, complete spectral Doppler, and color Doppler. Systolic blood pressure was 115 mmHg. Diastolic blood pressure was 77 mmHg. Image quality was adequate. Left ventricle: Size was normal. Systolic function was normal. Ejection fraction was estimated in the range of 55 % to 65 %. There were no regional wall motion abnormalities. Wall thickness was normal. Doppler: Doppler parameters were consistent with abnormal left ventricular relaxation (grade 1 diastolic dysfunction). There was no evidence of elevated ventricular filling pressure by Doppler parameters. Aortic valve: The valve was trileaflet. Leaflets exhibited normal thickness and normal cuspal separation. Doppler: There was no stenosis. There was no regurgitation. Aorta: The root exhibited normal size. Mitral valve: Valve structure was normal. There was normal leaflet separation. Doppler: The transmitral velocity was within the normal range. There was no evidence for stenosis. There was no regurgitation. Left atrium: Size was normal. Right ventricle: The ventricle was moderately dilated. Systolic function was mildly reduced. Wall thickness was normal. Pulmonic valve: Leaflets exhibited normal thickness, no calcification, and normal cuspal separation. Doppler: There was no regurgitation. Pulmonary artery: The size was normal. Doppler: Systolic pressure was moderately increased. Estimated peak pressure was 50 mmHg. Tricuspid valve: The valve structure was normal. There was normal leaflet separation. Doppler: The transtricuspid velocity was within the normal range. There was no evidence for tricuspid stenosis. There was mild to moderate regurgitation. Right atrium: Size was normal. Pericardium: The pericardium was normal in appearance. System measurement tables 2D LVOT Diam: 2 cm IVSd: 1 cm LVEDV MOD A4C: 74.9 ml LVESV MOD A4C: 17 ml LVIDd: 4.4 cm LVIDs: 2.9 cm LVPWd: 1 cm CW PV Vmax: 1 m/s AV Vmax: 1 m/s AV maxP.1 mmHg AV meanP.3 mmHg PV maxP mmHg TR Vmax: 3.3 m/s TR maxP.5 mmHg MM LA Diam: 2.5 cm Ao Diam: 2.7 cm PW LVOT Vmax: 0.9 m/s Lateral E/e': 3.1 Septal E/e': 4.5 ESTELITA (VTI): 2.5 cm2 ESTELITA Vmax: 2.9 cm2 LVOT Env.Ti: 229.2 ms LVOT Vmean: 0.6 m/s Lateral e': 0.1 m/s MV A [place]: 0.6 m/s MV Dec [place]: 2.2 m/s2 MV DecT: 212.2 ms MV E [place]: 0.5 m/s MV E/A Ratio: 0.8 Septal e': 0.1 m/s Prepared and signed by Tori Chandra MD Signed 15-Jun-2017 11:23:38 Shannan HAMMER-C ECHO ORDERABLES Performing Organization Address [facility] Co de Phone Number [facility] * T4 FREE DIRECT REFLEXED (06/14/2017 2:54 AM EPIC MANAGER) T4 Free 1.17 0.65 - 1.34 ng/dL 06/14/2017 3:50 AM EPIC MANAGER [facility] Blood BLOOD SPECIMEN / Unknown Venipuncture / Unknown 06/14/2017 2:54 AM EPIC MANAGER 06/14/2017 3:06 AM EPIC MANAGER Shannan Elaine Macario HAMMER-C LAB - CHEMISTRY ORDE RABCARLA Performing Organization Address [facility] de Phone Number [facility] [id number] [place] [address] * (ABNORMAL) TSH REFLEX FREE T4 (06/14/2017 2:54 AM EPIC MANAGER) TSH 8.91(H) 0.358 - 3.740 ulU/mL 06/14/2017 3:38 AM EPIC MANAGER [facility] Blood BLOOD SPECIMEN / Unknown Venipuncture / Unknown 06/14/2017 2:54 AM EPIC MANAGER 06/14/2017 3:06 AM EPIC MANAGER Shannan HAMMER-C LAB - CHEMISTRY ORDE RABCARLA Performing Organization Address [facility] Co de Phone Number [facility] [address] [place] [address] * CULTURE VRE (06/13/2017 11:38 PM EPIC MANAGER) Only the most recent of2 resultswithin the time period is included. Culture Negative for vancomycin-resi stant Enterococci (VRE) JASVIR 06/15/2017 6:12 AM EPIC MANAGER [facility] Stool RECTAL SWAB / Unknown Collection / Unknown 06/13/2017 11:38 PM EPIC MANAGER 06/13/2017 11:47 PM EPIC MANAGER Mellissa Tyson MD LAB - MICROBIOLOGY O RDMARIA ELENA Performing Organization Address City/[facility]/ZIP Co de Phone Number [facility] [address] [place] [address], [facility] [phone] * CULTURE MRSA (06/13/2017 11:38 PM EPIC MANAGER) Only the most recent of2 resultswithin the time period is included. Culture Negative for methicillin-resist ant Staphylococcus aureus (MRSA) JASVIR 06/15/2017 6:12 AM EPIC MANAGER [facility] Microbiology SPECIMEN FROM NASAL FOSSAE / Unknown Collection / Unknown 06/13/2017 11:38 PM EPIC MANAGER 06/13/2017 11:47 PM EPIC MANAGER Mellissa Tyson MD LAB - MICROBIOLOGY O JF Performing Organization Address City/[facility]/ZIP Co de Phone Number [facility] [address] [place] [address], [facility] [phone] * ACT - POINT OF CARE (06/13/2017 10:41 PM EPIC MANAGER) ACT POCT 178 125 - 187 Seconds [facility] POCT TEST[facility] QC Verified Yes Yes [facility] POC T TESTING Blood BLOOD SPECIMEN / Unknown 06/13/2017 10:41 PM EPIC MANAGER Tori Chandra MD LAB - POINT OF CARE ORDERABLES Performing Organization Address City/[facility]/ZIP Co de Phone Number [facility] [address] [place] [address], [facility] [phone] * ED CRITICAL CARE (06/13/2017 5:00 PM EPIC MANAGER) Narrative Radha Monahan MD - 06/13/2017 5:00 PM EPIC MANAGER Radha Monahan MD ? 06/13/2017 ??5:00 PM Critical Care Performed by: RADHA MONAHAN Authorized by: RADHA MONAHAN Total critical care time: 35 minutes Critical care time was exclusive of separately billable procedures and treating other patients. Critical care was necessary to treat or prevent imminent or life-threatening deterioration of the following conditions: PE. Critical care was time spent personally by me on the following activities: development of treatment plan with patient or surrogate, examination of patient, obtaining history from patient or surrogate, ordering and performing treatments and interventions, ordering and review of laboratory studies, ordering and review of radiographic studies, pulse oximetry, re-evaluation of patient's condition, review of old charts and evaluation of patient's response to treatment. Radha Monahan MD PROCEDURE/MINOR SURG ICAL ORDERABLES * MAGNESIUM BLOOD (06/13/2017 1:58 PM EPIC MANAGER) Magnesium 2.2 1.6 - 2.6 mg/dL 06/13/2017 2:24 PM EPIC MANAGER [facility] Blood BLOOD SPECIMEN / Unknown Venipuncture / Unknown 06/13/2017 1:58 PM EPIC MANAGER 06/13/2017 2:00 PM EPIC MANAGER Radha Monahan MD LAB - CHEMISTRY WILLIAM HUDSON Performing Organization Address [facility] Co de Phone Number [facility] [id number] [place] [address] * HCG BLOOD QUALITATIVE (06/13/2017 1:58 PM EPIC MANAGER) HCG Qual Serum Negative Negative 06/13/2017 2:14 PM EPIC MANAGER [facility] Blood BLOOD SPECIMEN / Unknown Venipuncture / Unknown 06/13/2017 1:58 PM EPIC MANAGER 06/13/2017 2:00 PM EPIC MANAGER Radha Monahan MD LAB - CHEMISTRY WILLIAM HUDSON Performing Organization Address [facility]/ZIP Co de Phone Number [facility] [address] [place] [address] * CARDIAC CATH PROCEDURE (06/13/2017 12:00 PM EPIC MANAGER) 06/13/2017 12:0 0 PM EPIC MANAGER Narrative Procedure Note Tori Chandra MD - 06/14/2017 1:25 AM CST [facility] CARDIAC CATHETERIZATION PATIENT: RADHA MCKEON MR#: [id number] ADMIT DATE: 06/13/2017 CSN: [id number] PROCEDURE DATE: 06/13/2017 :1980 PHYSICIAN: Tori Chandra MD ROOM: [place] [address] REFERRING PHYSICIAN: RADHA MONAHAN Patient of Dr. Shannan Sorto. INDICATION FOR PROCEDURE: Bilateral saddle pulmonary embolism. PROCEDURE PERFORMED: Pulmonary artery angiography and right heart catheterization and pulmonary artery thrombectomy in the right mainpulmonary artery. TECHNIQUE: After informed consent, the patient was brought to the cathlab. Right femoral vein was anesthestized with 2% lidocaine. The rightfemoral vein was punctured and cannulated with 7-Bulgarian sheath. A JR4 catheterwas advanced into the right main pulmonary artery. Pulmonary angiogram wasdone. Subsequently, the catheter was advanced to the left main pulmonaryartery. Angiogram of the left main pulmonary artery, which showed that there was really not any significant filling defect in the left main pulmonaryartery and the distal vessel also looked good. They may be in a very smallfilling defect in the upper part of the left lower pulmonary artery, but this wasnot felt to be flow-limiting or significant and therefore this was leftalone without any intervention done on the left side. The catheter was thenbrought over to the right side and an angiogram was done, which showed a filling defect in the right main pulmonary artery. This was treated with SolentOmni Angiojet thrombectomy over a Roxton Advantage wire with adequate results.I did distal angiogram, which showed no significant clot in the rightlower pulmonary artery. There was a persistent thrombus in the left rightupper apical pulmonary artery and the right middle posterior pulmonary artery.Both these areas were not flow limiting and there were subocclusive clots. Ifelt that this degree of thrombus burden was acceptable and did not need maria elena intervened on. This was therefore left alone without any further interventions. Final angiograms were done, which showed adequate resultof the right pulmonary artery. All the equipments were removed. The patientwas transferred in stable condition. Manual pressure was used to secure hemostasis. IMPRESSION: 1. Improvement in the pulmonary embolism compared to CT angiogram done earlier. 2. Successful thrombectomy in the right main pulmonary artery. 3. The left main pulmonary artery and the left pulmonary circulationlooks adequate and does not need any further procedures. There is some residual clot in the right side, investigate thrombus, but was felt maria elena acceptable for moderate pulmonary hypertension. PLAN: We will continue anticoagulation and can evaluate her forpulmonary hypertension with echocardiogram in the future within next 6 months. Thank you for allowing us in participation. TORI CHANDRA MD SD/MODL #: [id number] cc: Tori Chandra MD Primary Care Physician HARMAN Hamilton MEDICAL/SURGICAL CARDIAC CATHETERIZATION - DP Tori Chandra MD [facility]ARDIAC SERVICES [facility]D [facility] VAS RIGHT VENOUS DUPLEX LE (06/12/2017 11:26 AM EPIC MANAGER) Anatomical Region Laterality Modality Ultrasound 06/12/2017 11:0 1 AM EPIC MANAGER Narrative Procedure Note Grey Villela MD - 06/12/2017 [facility] [id number] [place] [id number] Lower Extremity Venous Ultrasound Report Pat.Name: RADHA MCKEON.ID: [id number] .Date: 06/12/2017 Exam Time: 11:01:00 AM Study Type:LE Venous Age: 9 1980,36Y Sex: FEMALE Sonogrphr: Milton Michele RVT Pat. Stat.:Outpatient Room: ED-10 Reason for Study:R79.89 Elevated D-dimer, M79.661 Tenderness of right calf Procedures:Lower Extremity Venous - Right Visit ID: [id number] SUMMARY: Acute DVT in right leg. FINDINGS: Procedure: Venous duplex imaging of the right lower extremity was performed using color flow and spectral Doppler analysis. The contralateral common femoral vein was also examined. Rt Leg: There is acute, occlusive thrombus in the popliteal and peroneal veins. All other vessels seen appear patent and compressible. There was spontaneous and phasic flow seen in all other major veins of the right lower extremity. Appropriate augmentation with distal compression. No evidence of reflux with proximal compression. The left common femoral vein demonstrated phasic and spontaneous flow. Comments: Technologist findings were called to Dr Toledo. Signed 06/12/2017 02:03 PM Grey Villela MD Paloma Toledo MD VASCULAR LAB ORD ERABLES * (ABNORMAL) D-DIMER (06/12/2017 9:16 AM EPIC MANAGER) D-Dimer 8.60(H) 0.17 - 0.5 mg/L FEU 06/12/2017 9:41 AM [facility] Blood BLOOD SPECIMEN / Unknown Venipuncture / Unknown 06/12/2017 9:16 AM EPIC MANAGER 06/12/2017 9:20 AM EPIC MANAGER Narrative [facility] - 06/12/2017 9:41 AM EPIC MANAGER The [employer] D-Dimer assay is intended for use as an aid in diagnosis of venous thromboembolism [(VTE): deep vein thrombosis (DVT), pulmonary embolism (PE), and disseminated intravascular coagulation (DIC)], and has received U.S. Food and Drug Administration (FDA) approval to exclude VTE in patients with low or moderate pretest probability of PE or DVT (per Wells' rules). At a clinical cut-off value 0.50 mg/L FEU, the Negative Predictive Value of this assay is 99.8% for excluding PE and 100% for excluding DVT. A very low percentage of patients with VTE may yield D-Dimer results below the cut-off value. An elevated D-Dimer result has low specificity (40.4% for PE, 35.5% for DVT) and is a poor predictor of VTE. An elevated D-Dimer result may indicate DIC in the appropriate clinical setting. Results of this test should always be interpreted in conjunction with the patient's medical history, clinical presentation, and other findings. Paloma Toledo MD LAB - COAGULATIO N ORDERABLES Performing Organization Address [facility] de Phone Number [facility] [id number] [place] [address] * PT-INR (06/12/2017 9:16 AM [facility]) Pathologist [facility] PT 9.8 9.5 - 11.6 sec 06/12/2017 9:41 AM [facility] INR 1.0 0.9 - 1.1 06/12/2017 9:41 AM [facility] Blood BLOOD SPECIMEN / Unknown Venipuncture / Unknown 06/12/2017 9:16 AM EPIC MANAGER 06/12/2017 9:20 AM EPIC MANAGER Narrative [facility] - 06/12/2017 9:41 AM EPIC MANAGER Conventional Warfarin Anticoagulant Therapy: INR Reference Range: ??2.0-3.0 Intensive Warfarin Anticoagulant Therapy: INR Reference Range: ? 2.5-3.5 Paloma Toledo MD LAB - COAGULATIO N ORDERABLES Performing Organization Address [facility] Co de Phone Number [facility] [id number] [place] [address] * HCG BETA BLOOD QUANTITATIVE (06/12/2017 9:16 AM EPIC MANAGER) Pathologist [facility] hCG Quantitative <1 mIU/mL 06/13/19 18 11:58 AM EPIC MANAGER [facility] Blood BLOOD SPECIMEN / Unknown Venipuncture / Unknown 06/12/2017 9:16 AM EPIC MANAGER 06/12/2017 9:20 AM EPIC MANAGER Narrative [facility] - 06/12/2017 11:58 AM EPIC MANAGER ? hCG Reference Range, mIU/mL: ? Males ? 0-2.0 ? Non Females ? 0-6.0 ? Perimenopausal Females ages 41-55* ?0-7.7 ? Postmenopausal Females age >55* ? 0-14 ? Females, Weeks after Last Menstrual Period ?0.2-1 week ? 5-50 ?1 - 2 weeks ?50-500 ?2 - 3 weeks ?100-5000 ?3 - 4 weeks ?500-10,000 ?4 - 5 weeks ?1000-50,000 ?5 - 6 weeks ?10,000-100,000 ?6 - 8 weeks ?15,000-200,000 ?2 - 3 months ? 10,000-100,000 ?Trophoblastic Disease ?>100,000 *In higher than expected hCG in females > age 40, a serum FSH >20 IU/L makes unlikely. Paloma Toledo MD LAB - CHEMISTRY ORDERABLES Performing Organization Address [facility] Co de Phone Number [facility] [address] [place] [address] * CK BLOOD (06/12/2017 9:16 AM EPIC MANAGER) CK 46 35 - 232 U/L 06/12/2017 9:40 AM EPIC MANAGER [facility] Blood BLOOD SPECIMEN / Unknown Venipuncture / Unknown 06/12/2017 9:16 AM EPIC MANAGER 06/12/2017 9:20 AM EPIC MANAGER Paloma Toledo MD LAB - CHEMISTRY ORDERABLES Performing Organization Address [facility] de Phone Number [facility] [address] [place] [address] * CT HEAD - NON CONTRAST (06/06/2010 1:10 AM EPIC MANAGER) Anatomical Region Laterality Modality Head Computed Tomogra phy 06/06/2010 8:47 AM EPIC MANAGER Impressions 06/06/2010 8:47 AM EPIC MANAGER Normal unenhanced CT brain. Preliminary report was provided by [facility]. Narrative 06/06/2010 8:[address] Brain Noncontrast Indication: Fall, head injury and pain Comparison: None Technique: 5 mm axial images were obtained from the foramen magnum to the vertex without administration of contrast. Findings: The ventricles and sulci are normal in size for patient's given age. There is no intracranial hemorrhage, mass, or mass-effect. No abnormal extra-axial fluid collections are seen. There is no cortical infarction. The visualized paranasal sinuses and mastoid air cells appear clear. Procedure Note Kay Aguilera MD - 06/06/2010 CT Brain Noncontrast Indication: Fall, head injury and pain Comparison: None Technique: 5 mm axial images were obtained from the foramen magnum to the vertex without administration of contrast. Findings: The ventricles and sulci are normal in size for patient's given age. There is no intracranial hemorrhage, mass, or mass-effect. No abnormal extra-axial fluid collections are seen. There is no cortical infarction. The visualized paranasal sinuses and mastoid air cells appear clear. IMPRESSION Normal unenhanced CT brain. Preliminary report was provided by [facility]. Teresa Altamirano MD CT ORDERABLES * XR FOOT 3+ VW LEFT (06/06/2010 12:16 AM EPIC MANAGER) Anatomical Region Laterality Modality Ankle / Foot Radiographic Cyndie ging 06/06/2010 8:54 AM EPIC MANAGER Impressions 06/06/2010 11:02 AM EPIC MANAGER No fracture or dislocation identified. ??Please see above. Narrative 06/06/2010 11:02 AM EPIC MANAGER EXAMINATION: Left foot 3 views. INDICATION: ??Left foot pain. Injury. Fell down the stairs. FINDINGS: No fracture or dislocation can be identified. Bone mineral content is within the expected range for the patient's stated age. Mild soft tissue swelling is noted in the distal half of the foot. If the patient's symptoms persist or worsen, consideration may be given to an alternative imaging modality such as an MRI or a bone scan to check for an occult process. Procedure Note Tre Pearson MD - 06/06/2010 EXAMINATION: Left foot 3 views. INDICATION: Left foot pain. Injury. Fell down the stairs. FINDINGS: No fracture or dislocation can be identified. Bone mineral content is within the expected range for the patient's stated age. Mild soft tissue swelling is noted in the distal half of the foot. If the patient's symptoms persist or worsen, consideration may be given to an alternative imaging modality such as an MRI or a bone scan to check for an occult process. IMPRESSION No fracture or dislocation identified. Please see above. Thomas Knight MD DIAGNOSTIC IMAGING O RDERABLES * XR ANKLE 3+ VW LEFT (06/06/2010 12:15 AM EPIC MANAGER) Anatomical Region Laterality Modality Lower Extremity Radiographic Cyndie ging 06/06/2010 8:56 AM EPIC MANAGER Impressions 06/06/2010 8:56 AM EPIC MANAGER No fracture or dislocation identified. ??Please see above. Narrative 06/06/2010 8:56 AM EPIC MANAGER Examination: Left ankle 3 views Indication: ??Left ankle pain. Injury. Fell down stairs. Findings: No fracture or dislocation can be identified. Bone mineral content is within the expected range for the patient's stated age. If the patient's symptoms persist or worsen, consideration may be given to an alternative imaging modality such as an MRI or a bone scan to check for an occult process. Procedure Note Tre Pearson MD - 06/06/2010 Examination: Left ankle 3 views Indication: Left ankle pain. Injury. Fell down stairs. Findings: No fracture or dislocation can be identified. Bone mineral content is within the expected range for the patient's stated age. If the patient's symptoms persist or worsen, consideration may be given to an alternative imaging modality such as an MRI or a bone scan to check for an occult process. IMPRESSION No fracture or dislocation identified. Please see above. Thomas Knight MD DIAGNOSTIC IMAGING O RDERABLES * HCG URINE QUALITATIVE - POINT OF CARE (10/15/2009 7:30 AM CDT) HCG Qual Urine Negative Negative [facility] QC Verified Yes Yes [facility] POC T TESTING Urine specimen (specimen) URINE / Unknown 10/15/2009 7:30 AM CDT Jacob Echevarria MD LAB - POINT OF CARE ORDERABLES [facility] [address] [place] [address] * (ABNORMAL) CK + CKMB PANEL (07/03/2009 11:45 AM CDT) Only the most recent of5 resultswithin the time period is included. CK 454(H) 30 - 135 U/L [facility] CK-MB 3.0 0.0 - 5.0 ng/ml [facility] BLOOD SPECIMEN / Unknown 07/03/2009 11:45 AM CDT 07/03/2009 11:54 AM CDT Rita Bocanegra [employer] LAB - CHEMISTRY ORDERABLES Performing Organization Address City/[facility]/ZIP Co de Phone Number [facility] [address] [place] [address] * CULTURE BLOOD (07/02/2009 1:00 PM CDT) Only the most recent of5 resultswithin the time period is included. Report [facility] Comment:Final - CULTURE No Growth PERIPHERAL BLOOD / Unknown 07/02/2009 1:00 PM CDT 07/02/2009 1:34 PM CDT Adam Mcallister MD LAB - MICROBIOLOGY O RDERABLES Performing Organization Address [facility] Co de Phone Number [facility] [address] [place] [address] * XR CHEST PA AND LATERAL (ROUTINE) (07/02/2009 12:02 PM CDT) Anatomical Region Laterality Modality Chest Radio Fluoroscop y 07/02/2009 12:1 6 PM CDT Impressions 07/02/2009 12:18 PM CDT 1. Status post catheter removal, otherwise no significant change, no acute disease process. Narrative 07/02/2009 12:18 PM CDT HISTORY: Shortness of breath. Two views chest 07/02/2009. FINDINGS: Since 07/01/2009, the right internal jugular venous catheter has been removed. The lungs are clear. The heart size is unchanged. The mediastinum and bony thorax are unremarkable. ?? Procedure Note Sherif Fenton MD - 07/02/2009 HISTORY: Shortness of breath. Two views chest 07/02/2009. FINDINGS: Since 07/01/2009, the right internal jugular venous catheter has been removed. The lungs are clear. The heart size is unchanged. The mediastinum and bony thorax are unremarkable. IMPRESSION 1. Status post catheter removal, otherwise no significant change, no acute disease process. Adam Mcallister MD DIAGNOSTIC IMAGING O RDERABLES * (ABNORMAL) BLOOD GASES ARTERIAL (07/01/2009 9:41 AM CDT) Only the most recent of6 resultswithin the time period is included. pH Arterial 7.467(H) 7.35 - 7.45 pH Units [facility] pCO2 Arterial 34.4(L) 35 - 45 mm Hg [facility] pO2 Arterial 155.5(H) 70 - 100 mm Hg [facility] HCO3 Arterial 24.3 22 - 26 mmol/L [facility] Base Excess Arterial 1.2 -2.0 - 2.0 [facility] O2 Saturation Arterial 99.1 97 - 100 % [facility] FI O2 Arterial or Capillary 40.0 % [facility] Temp 37.0 oC [facility] Site R. Brachial [facility] ARTERIAL BLOOD SPECIMEN / Unknown 07/01/2009 9:41 AM CDT 07/01/2009 9:45 AM CDT Kostas Ramos MD LAB - BLOOD GASES OR DERABLES Performing Organization Address City/[facility]/ZIP Co de Phone Number [facility] [address] [place] [phone] * (ABNORMAL) POTASSIUM BLOOD (06/29/2009 3:30 PM CDT) Pathologist [facility] Potassium 3.4(L) 3.6 - 5.0 mmol/L [facility] BLOOD SPECIMEN / Unknown 06/29/2009 3:30 PM CDT 06/29/2009 3:48 PM CDT Nabor Carmona MD LAB - CHEMISTRY WILLIAM HUDSON Performing Organization Address City/[facility] Co de Phone Number [facility] [address] [place] [address] * BENZODIAZEPINE URINE CONFIRMATION (06/29/2009 6:40 AM CDT) Pathologist [facility] Benzodiazepines Confirm Urine Negative by GC/MS with a cutoff of 300 ng/mL. ng/ml [facility] URINE / Unknown 06/29/2009 6 :40 AM CDT 06/29/2009 12:43 PM CDT Narrative Resulting Agency Comment Performed By [facility] ? [address] ? [place] [address] Javad Quintanilla MD LAB - URINE CHEMISTR Y ORDERABLES [facility] [address] [place] [address] * DRUG SCREEN TOX URINE PANEL (06/29/2009 6:40 AM CDT) Pathologist [facility] Amphetamines Screen Urine Not Detected 1000 ng/mL Cutoff ng/ml [facility] Barbiturates Screen Urine Not Detected 300 ng/mL Cutoff ng/ml [facility] Benzodiazepines Screen Urine Presumptive Positive 300 ng/mL Cutoff ng/ml [facility] Cannabinoids Screen Urine Not Detected 20 ng/mL Cutoff ng/ml [facility] Cocaine Screen Urine Not Detected 300 ng/mL Cutoff ng/ml [facility] Methadone Screen Urine Not Detected 300 ng/mL Cutoff ng/ml [facility] Methaqualone Screen Urine Not Detected 300 ng/mL Cutoff ng/ml [facility] Opiate Screen Urine Not Detected 300 ng/mL Cutoff ng/ml [facility] Phencyclidine Screen Urine Not Detected 25 ng/mL Cutoff ng/ml [facility] Propoxyphene Screen Urine Not Detected 300 ng/mL Cutoff ng/ml [facility] Oxycodone Screen Urine Not Detected 100 ng/mL Cutoff ng/ml [facility] Ecstasy Screen Urine Not Detected 500 ng/mL Cutoff ng/ml [facility] Creatinine Urine Tox 44.7 mg/dl [facility] GC/MS Screen Urine Positive for Lidocaine [facility] Comment GC/MS Screen [facility] Comment: ? The GC/MS screen is a qualitative test for illicit drugs, ? narcotics, tranquilizers, sedative-hypnotics, antidepressants, ? cold medications, antihistamines, anticonvulsants, appetite ? suppressants, and date rape drugs, (Ecstasy, GHB-Gamma ? Hydroxybutyrate, Rolhypnol, Ketamine). Legal Disclaimer Urine This drug screen is designed for MEDICAL purposes only. It is not to be used for legal purposes including but not limited to workman's comp, police investigations, occupational issues, child custody. [facility] URINE / Unknown 06/29/2009 6 :40 AM CDT 06/29/2009 6:48 AM CDT Narrative Resulting Agency Comment Performed By [facility] ? [address] ? [place] [address] Tiffani Rosa MD LAB - URINE CHEM ISTRY ORDERABLES Performing Organization Address City/State/[facility] Co de Phone Number [facility] [address] [place] [address] * CHEST ONE VIEW (06/29/2009 5:02 AM CDT) Anatomical Region Laterality Modality Chest Radio Fluoroscop y 06/29/2009 7:09 AM CDT Impressions 06/29/2009 7:36 AM CDT Extensive infiltrate or edema in both lungs. Narrative 06/29/2009 7:36 AM CDT Chest x-ray single view: HISTORY: Intubation. FINDINGS: A single view of the chest is compared to a prior exam of 06/28/2009. An endotracheal tube tip lies just above the ananda. NG tube is in place as is a right central line. Heart size is stable. Extensive infiltrate or edema is seen in both lungs. A better inspiration is seen on the current exam. Procedure Note Gera Isaac MD - 06/29/2009 Chest x-ray single view: HISTORY: Intubation. FINDINGS: A single view of the chest is compared to a prior exam of 06/28/2009. An endotracheal tube tip lies just above the ananda. NG tube is in place as is a right central line. Heart size is stable. Extensive infiltrate or edema is seen in both lungs. A better inspiration is seen on the current exam. IMPRESSION Extensive infiltrate or edema in both lungs. Alphonso Horton MD DIAGNOSTI C IMAGING ORDERABLES * CT ANGIO CHEST COMB INCLUDE PROC (06/29/2009 3:32 AM CDT) Anatomical Region Laterality Modality Chest Computed Tomogra phy 06/29/2009 7:24 AM CDT Impressions 06/29/2009 8:37 AM CDT Negative for pulmonary embolus. Extensive infiltrate or edema. Endotracheal tube directed into right mainstem bronchus. As per preliminary report, findings were discussed by [facility] physician with TELLO Ansari. Narrative 06/29/2009 8:[address] angiogram pulmonary artery: HISTORY: Elevated D-dimer, respiratory distress. TECHNIQUE: Images were obtained from lung apices to the costophrenic sulci during contrast infusion using helical volumetric acquisition. FINDINGS: The examination shows extensive areas of consolidation or confluent edema in both lungs, greater on the left. There is no pleural effusion present. I do not identify filling defects in the pulmonary arteries to suggest pulmonary emboli. No hilar or mediastinal adenopathy is seen. The endotracheal tube is directed into the right mainstem bronchus. Procedure Note Gera Isaac MD - 06/29/2009 CT angiogram pulmonary artery: HISTORY: Elevated D-dimer, respiratory distress. TECHNIQUE: Images were obtained from lung apices to the costophrenic sulci during contrast infusion using helical volumetric acquisition. FINDINGS: The examination shows extensive areas of consolidation or confluent edema in both lungs, greater on the left. There is no pleural effusion present. I do not identify filling defects in the pulmonary arteries to suggest pulmonary emboli. No hilar or mediastinal adenopathy is seen. The endotracheal tube is directed into the right mainstem bronchus. IMPRESSION Negative for pulmonary embolus. Extensive infiltrate or edema. Endotracheal tube directed into right mainstem bronchus. As per preliminary report, findings were discussed by [facility] physician with TELLO Ansari. Alphonso Horton MD CT ORDERA BLES * (ABNORMAL) B-TYPE NATRIURETIC PEPTIDE (06/29/2009 12:10 AM CDT) BNP 123.9(H) 0.0 - 99.99 pg/ml [facility] Interpretation BNP [facility] Comment: A cutoff of 100 pg/ml has been demonstrated to provide the maximal combination of sensitivity, specificity, and negative predictive value for contributing to the diagnosis of congestive heart failure(CHF) only. ??A BNP value greater than or equal to 100 pg/ml is consistent with a diagnosis of CHF in the appropriate clinical setting. ??False positive results are more common in females greater than 75 years of age. ??Blood concentrations of natriuretic peptides may also be elevated in patients with myocardial infarction and in patients who are candidates for or are undergoing renal dialysis. BLOOD SPECIMEN WITH EDTA / Unknown 06/29/2009 12:10 AM CDT 06/29/2009 8:40 AM CDT Narrative [facility] - 06/29/2009 9:42 AM CDT gwen Brenda Grullon MD LAB - CHEMISTRY ORDERABLES Performing Organization Address City/[facility] Co de Phone Number [facility] [address] [place] [phone] * (ABNORMAL) LDH BLOOD (06/29/2009 12:10 AM CDT) LDH 633(H) 313 - 618 U/L [facility] BLOOD SPECIMEN / Unknown 06/29/2009 12:10 AM CDT 06/29/2009 12:26 AM CDT Alphonso Horton MD LAB - GRUPO CORTNEY ORDERABLES Performing Organization Address [facility] Co de Phone Number [facility] [address] [place] [address] * HAPTOGLOBIN (06/29/2009 12:10 AM CDT) Haptoglobin 64.9 40 - 240 mg/dl [facility] BLOOD SPECIMEN / Unknown 06/29/2009 12:10 AM CDT 06/29/2009 12:26 AM CDT Alphonso Horton MD LAB - GRUPO CORTNEY ORDERABLES Performing Organization Address [facility] de Phone Number [facility] [address] [place] [phone] * (ABNORMAL) LIPID PROFILE (06/29/2009 12:10 AM CDT) Cholesterol 224(H) <200 mg/dl [facility] Triglycerides 101 <150 mg/dl [facility] HDL Cholesterol 41 >=40 mg/dl [facility] VLDL Calculated 20 <=30 mg/dl [facility] LDL Calculated 163(H) <100 mg/dl [facility] Cholesterol Risk Factor 5.46(H) <4.45 [facility] Comment Lipid [facility] Comment: ? Normal values based on [place] [employer] guidelines. ? LIPID PROFILE GUIDELINES [...] Horton MD LAB - GRUPO CORTNEY ORDERABLES Performing Organization Address [facility] de Phone Number [facility] [address] [place] [phone] * URINALYSIS ROUTINE AUTO (06/29/2009 12:05 AM CDT) Source Catheter [facility] Color UA Light Yellow [facility] Character UA Clear [facility] Glucose UA NEGATIVE NEGATIVE mg/dl [facility] Bilirubin UA NEGATIVE NEGATIVE [facility] Ketone UA NEGATIVE NEGATIVE mg/dl [facility] Specific Dennison UA <=1.005 1.003 - 1.030 [facility] Blood UA NEGATIVE NEGATIVE [facility] pH UA 5.5 5.0 - 9.0 [facility] Protein UA NEGATIVE NEGATIVE-TR SHADI mg/dl [facility] Urobilinogen UA 0.2 0.2 - 1.0 Delmer Units/dl [facility] Nitrite UA NEGATIVE NEGATIVE [facility] Leukocyte UA NEGATIVE NEGATIVE [facility] URINE SPECIMEN COLLECTION, CATHETERIZED / Unknown 06/29/2009 12:05 AM CDT 06/29/2009 1:15 AM CDT Javad Quintanilla MD LAB - URINALYSIS ORD ERABLES Performing Organization Address [facility] de Phone Number [facility] [address] [place] [address] * HCG URINE QUALITATIVE (06/29/2009 12:05 AM CDT) HCG Qual Urine Negative SEE BELOW [facility] Comment: Normal, Negative Pos, Sensitivity 25 MIU/ML Comment hCG Urine [facility] Comment: ? For optimal results, it is best to test the first urine ? voided in the morning because it contains the greatest ? concentration of hCG. URINE / Unknown 06/29/2009 1 2:05 AM CDT 06/29/2009 1:16 AM CDT Alphonso Horton MD LAB - URI NALYSIS ORDERABLES Performing Organization Address [facility] de Phone Number [facility] [address] [place] [address] * CULTURE SPUTUM (06/29/2009 12:00 AM CDT) Report [facility] Comment: Final - GRAM STAIN <10 Epithelial cells per low power field <10 WBC's per low power field Light rbc's Heavy debris CULTURE Light usual aerobic jordon SPUTUM / Unknown 06/29/2009 06/30/19 10 1:04 AM CDT Alphonso Horton MD LAB - JASVIR ROBIOLOGY ORDERABLES Performing Organization Address [facility] de Phone Number [facility] [address] [place] [phone] * (ABNORMAL) COAGULATION PANEL W D-DIMER (06/29/2009 12:00 AM CDT) PT 10.7 9.4 - 11.4 seconds [facility] INR 1.01 SEE BELOW [facility] Comment: Conventional anticoagulation ?? 2.0-3.0 Intensive anticoagulation ?? 2.5-3.5 PTT 25.6 24.0 - 33.0 seconds [facility] D-Dimer 10.47(HH) 0.43 - 2.8 mg/L [facility] Fibrinogen 286 150 - 450 mg/dl [facility] Platelet Count 255 150 - 400 K/CUMM [facility] Comment D-Dimer [facility] Comment: ? Elevated results above the normal range may indicate ? DIC in the appropriate clinical setting. ??Serial ? evaluations may yield information regarding the ? clinical course. ? If result is greater than 1.0 mg/L, DVT or PE is possible. BLOOD SPECIMEN / Unknown 06/29/2009 06/29/2009 12:26 AM CDT Alphonso Horton MD LAB - COA GULATION ORDERABLES Performing Organization Address City/[facility]/ZIP Co de Phone Number [facility] [address] [place] [address] * (ABNORMAL) LACTIC ACID BLOOD (06/28/2009 11:45 PM CDT) Lactic Acid 2.2(H) 0.7 - 2.1 mmol/L [facility] BLOOD SPECIMEN / Unknown 06/28/2009 11:45 PM CDT 06/29/2009 12:24 AM CDT Tiffani Rosa MD LAB - CHEMISTRY ORDERABLES Performing Organization Address [facility] Co de Phone Number [facility] [address] [place] [address] * XR ABDOMEN 1 VW (06/28/2009 11:36 PM CDT) Anatomical Region Laterality Modality Abdomen Radio Fluoroscop y 06/29/2009 7:28 AM CDT Impressions 06/29/2009 8:36 AM CDT NG tube in gas-distended stomach. Narrative 06/29/2009 8:36 AM CDT KUB: HISTORY: NG tube placement. FINDINGS: A single view of the abdomen shows a gas-distended stomach. NG tube is in place with its tip projected in the gastric body. Procedure Note Gera Isaac MD - 06/29/2009 KUB: HISTORY: NG tube placement. FINDINGS: A single view of the abdomen shows a gas-distended stomach. NG tube is in place with its tip projected in the gastric body. IMPRESSION NG tube in gas-distended stomach. Alphonso Horton MD DIAGNOSTI C IMAGING ORDERABLES * (ABNORMAL) BLOOD GASES + COOX ARTERIAL PANEL (06/28/2009 8:24 PM CDT) pH Arterial 7.316(L) 7.35 - 7.45 pH Units [facility] pCO2 Arterial 36.9 35 - 45 mm Hg [facility] pO2 Arterial 219.7(H) 70 - 100 mm Hg [facility] HCO3 Arterial 18.4(L) 22 - 26 mmol/L [facility] Base Excess Arterial -7.0 -2.0 - 2.0 [facility] FI O2 Arterial or Capillary 100.0 % [facility] O2 Saturation Arterial 99.5 97 - 100 % [facility] Hemoglobin Arterial 12.4 12.0 - 16.0 gm% [facility] Oxyhemoglobin Arterial 98.8 94 - 100 % [facility] Carboxyhemoglobin Arterial 0.3 0 - 2 [facility] Methemoglobin Arterial 0.4 0.4 - 1.5 [facility] Vt 500 cc [facility] Mode a/c [facility] Respiratory Rate 14.0 [facility] PEEP 5 [facility] Site R. Radial [facility] Temp 37.0 oC [facility] ARTERIAL BLOOD SPECIMEN / Unknown 06/28/2009 8:24 PM CDT 06/28/2009 8:30 PM CDT Er LAB - BLOOD GASES OR DERABLES Performing Organization Address City/[facility]/ZIP Co de Phone Number [facility] [address] [place] [address] * (ABNORMAL) HGB HCT PANEL (03/19/2008 9:20 PM EPIC MANAGER) Hemoglobin 9.9(L) 12.0 - 16.0 gm/dl [facility] Hematocrit 29.4(L) 36.0 - 48.0 % [facility] BLOOD SPECIMEN / Unknown 03/19/2008 9:20 PM EPIC MANAGER Man Bolden MD LAB - HEMATOLOGY ORD ERABLES [facility] * URINALYSIS DIPSTICK AUTO (03/19/2008 9:25 AM EPIC MANAGER) Color UA YELLOW [facility] Character UA CLEAR [facility] Specific Dennison UA 1.015 1.005 - 1.0300 [facility] pH UA 6.5 4.6 - 8.0 pH Units [facility] Leukocyte UA neg Negative /ul [facility] Nitrite UA neg Negative [facility] Protein UA neg Negative mg/dl [facility] Glucose UA norm Normal mg/dl [facility] Ketone UA 50 Negative mg/dl [facility] Urobilinogen UA norm Normal Delmer Units [facility] Bilirubin UA neg Negative mg/dl [facility] Blood UA neg Negative /ul [facility] URINE / Unknown 03/19/2008 9 :25 AM EPIC MANAGER Man Bolden MD LAB - URINALYSIS ORD MARIA ELENA Performing Organization Address [facility] de Phone Number [facility] * CULTURE URINE (03/19/2008 9:25 AM EPIC MANAGER) Result [facility] Comment: Final ?? CULTURE >10,000 colonies/ml Mixed gram ?? positive jordon. MIXED CULTURE,NO FURTHER ?? WORK-UP WILL BE PERFORMED ?? RECOLLECT IF INDICATED URINE SPECIMEN COLLECTION, CATHETERIZED / Unknown 03/19/2008 9:25 AM EPIC MANAGER 03/19/2008 9:27 AM EPIC MANAGER Narrative Resulting Agency Comment Performed By [facility] ? [address] ? [place] [address] Man Bolden MD LAB - MICROBIOLOGY O RDERABLES Performing Organization Address [facility] Co de Phone Number [facility] * TYPE + SCREEN PANEL (03/19/2008 6:30 AM EPIC MANAGER) ABO Rh A Pos [facility] Antibody Screen Neg [facility] BLOOD SPECIMEN / Unknown 03/19/2008 6:30 AM EPIC MANAGER Man Bolden MD LAB - BLOOD BANK ORD ERABLES Performing Organization Address [facility] Co de Phone Number [facility] Care Teams Pharmacy Student Relationship Specialty Start Date End Date Antione Servin MD PCP - General Internal Medicine 07/08/17
--- OUTSIDE RECORDS SUMMARY | 2024-05-04 13:10 | XMS_ITS | Clinical Summary ---
Author Organization [facility] Address [address] [place] [id number] Care Team Providers Care Relay Repairer Name Role Phone Unavailable Primary Care Provider Unavailabl e Encounters Date Type Department Care Team Description 04/29/2024 External Device Data [facility] ABSTRACTION Provider, Abstract 04/28/2024 External Device Data [facility] Provider, Abstract 04/14/2024 External Device Data [facility] Provider, Abstract 02/10/2024 External Device Data [facility] Provider, Abstract from Last 3 Months Social History Tobacco Use Types Packs/Day Years Used Date Smoking Tobacco: Never Assessed Comments Unknown Sex and Gender Information Value Date Recorded Sex Assigned at Not on file Legal Sex Female 3:40 PM CDT Gender Identity Not on file Sexual Orientation Not on file Plan of Treatment Health Maintenance Due Date Last Done Comments DTAP/TDAP/TD VACCINES (1 - Tdap) 12/23/1999 HEPATITIS B VACCINES (1 of 3 - 19+ 3-dose series) 12/23/1999 CERVICAL CANCER SCREENING 2010 INFLUENZA VACCINE (#1) 2023 BREAST CANCER SCREENING 09/12/2024 09/13/2023 HPV VACCINES Aged Out No longer eligi ble based on patient's age to complete this topic PNEUMOCOCCAL VACCINE 0-64 YEARS Aged Out No longer eligible based on patient's age to complete this topic Procedures Procedure Name Priority Date/Time Associated Diagnosis Comments MAMMO 3D CECY SCREEN BILAT W OR WO CAD Routine 09/13/2023 2:04 PM CDT Breast cancer screening by mammogram from Last 3 Months or Most Recently Relevant to Health Maintenance Results * MAMMO 3D CECY SCREEN BILAT W OR WO CAD (09/13/2023 2:04 PM CDT) Anatomical Region Laterality Modality Breast Bilateral Mammography 09/13/2023 2:05 PM CDT Impressions 09/13/2023 2:17 PM CDT IMPRESSION: ?? Small focal asymmetry at the lower outer left breast 5.3 cm from the nipple seen only on the left CC projection. Targeted left breast ultrasound would be recommended. No mammographic evidence for malignancy of the right breast. OVERALL FINAL ASSESSMENT: ??BI-RADS CATEGORY 0: Incomplete, needs additional imaging evaluation.. Recommendation: Targeted left breast ultrasound. Narrative 09/13/2023 2:17 PM CDT BILATERAL SCREENING DIGITAL MAMMOGRAM WITH 3D TOMOSYNTHESIS AND CAD DATE: 09/13/2023 2:04 PM HISTORY: Annual screening study. COMPARISON: None. Baseline. TECHNIQUE: A bilateral screening mammogram was performed. Low-dose full-field digital breast tomosynthesis examination was performed with 2D and 3D acquisitions. Examination is read in conjunction with computer aided detection. ?? BREAST COMPOSITION: Heterogeneously dense, which limits the sensitivity of mammography FINDINGS: At the lower outer left breast 5.3 cm from the nipple, there is a small focal asymmetry seen only on the implant displaced left cc view. Targeted left breast ultrasound would be recommended. Otherwise, no suspicious masses, suspicious microcalcifications or areas of architectural distortion are noted. Bilateral subpectoral silicone implants are present. us Hannah Smith NP MAMMO ORDERABLES Final Resul t from Last 3 Months or Most Recently Relevant to Health Maintenance Insurance BLUE ACCESS CHOICE
--- OUTSIDE RECORDS SUMMARY | 2024-05-04 13:10 | XMS_ITS | Referral Summary ---
Author Organization [facility] [employer] Address [address] [place] [address] Care Team Providers Care Fountain Worker Name Role Phone Antione Servin MD Primary Care Provider Unavaila ble Source Comments [facility],non-owned Affiliates and Associated Physician Practices is amultiple site organization consisting of ambulatory clinics and hospital sitesin [place], [place], [place] and [place]. This disclosure is being madepursuant to the Care Everywhere program and may not contain all information available regarding this patient. Last updated 17.[facility] Allergies Active Allergy Reactions Criticality Noted [...] Mass Index 34.19 07/08/2017 2:24 PM CDT Functional Status Functional Status Response Date of Assess ment Is person deaf or have serious hearing difficult y? No 06/13/2017 Is person blind or have serious difficulty seein g? No 06/13/2017 Does person have serious dif ficulty walking/climbing stairs? No 06/13/2017 Does person have difficulty dressing/bathing? No 06/13/2017 Does person have difficulty doing errands alone? No 06/13/2017 Cognitive Status Response Date of Assessm ent Does person have difficulty concentrating/remembering/making decisions? No 06/13/2017 Plan of Treatment Not on file Procedures Procedure Name Priority Date/Time Associated Diagnosis [...] LABORATORY Comment: ? Normal values based on [place] [employer] guidelines. ? LIPID PROFILE GUIDELINES [...] - GRUPO CORTNEY ORDERABLES Performing Organization Address City/State/[facility] Co de Phone Number [address] [address] from Last 3 Months or Most Recently [...] 7:36 PM 07/05/2009 5:06 AM Care Teams Fountain Worker Relationship Specialty Start Date End Date Antione Servin MD PCP - General Internal Medicine 07/08/17
--- OUTSIDE RECORDS SUMMARY | 2024-05-04 13:10 | XMS_ITS | Clinical Summary ---
Author Organization [facility] Address [address] [place] [address]. [place], [place] [id number] [place] [address] Care Team Providers Care Bush Hog Operator Name Role Phone None, Provider MD Primary Care Provider Unavaila ble Allergies Active Allergy Reactions Criticality Noted Date Comments Amoxicillin Shortness of Breath,Rash High 06/07/2018 Erythromycin Unknown 06/28/2009 Peanut Oil Unknown High 03/20/2017 Penicillins Shortness of Breath,Rash High 06/28/2009 Tramadol Rash Low 03/20/2017 Medications No known medications Family History Medical History Relation Comments COPD Father Diabetes Father Heart Disease Father Hypertension Father Stroke Father Cancer Mother Seizures Mother Thyroid Disease Mother Relation Status Comments Father Alive Mother Alive Social History Tobacco Use Types Packs/Day Years Used Date Smoking Tobacco: Never Smokeless Tobacco: Never Tobacco Cessation:Counseling Given: Not Answered Alcohol Use Standard Drinks/Week Comments No 0 (1 standard drink = 0.6 oz pur e alcohol) AUDIT-C Answer Date Recorded Frequency of Alcohol Consumption Never 06/07/2018 Average Number of Drinks Not on file 019 Frequency of Binge Drinking Not on file 05/2018 Comments No Sex and Gender Information Value Date Recorded Sex Assigned at Not on file Legal Sex Female 10:21 AM MANAGER DECISION SUPPORT Gender Identity Not on file Sexual Orientation Not on file Last Filed Vital Signs Vital Sign Reading Time Taken Comments Blood Pressure 134/83 02/21/2022 11:32 AM MANAGER DECISION SUPPORT Pulse 76 02/21/2022 11:32 AM MANAGER DECISION SUPPORT Temperature 36.3 ??C (97.3 ??F) 02/21/2022 11:[address] Respiratory Rate 18 02/21/2022 11:32 AM MANAGER DECISION SUPPORT Oxygen Saturation 100% 02/21/2022 11:32 AM MANAGER DECISION SUPPORT Inhaled Oxygen Concentration - - Weight 69.9 kg (154 lb) 02/21/2022 11:32 AM MANAGER DECISION SUPPORT Height 160 cm (5' 3 ) 02/21/2022 11:32 AM MANAGER DECISION SUPPORT Body Mass Index 27.28 02/21/2022 11:32 AM MANAGER DECISION SUPPORT Plan of Treatment Health Maintenance Due Date Last Done Comments Cervical Cancer Screening Pa p Smear (Age 30 to 64) Every 3 Years 1980 Annual Physical 12/23/1983 Hepatitis C 1998 DTaP, Tdap and Td Vaccines ( 1 - Tdap) 12/23/1999 Hepatitis B Vaccines (1 of 3 - 19+ 3-dose series) 12/23/1999 Cervical Cancer Screening Pa p with HPV Testing (Age 30 to 64) Every 5 Years 2010 Cervical Cancer Screening with HPV 2010 Mammogram Screening 2020 COVID-19 Vaccine (2023-2 5 season) 2023 Influenza Adult (#1) 2024 HPV Vaccines Aged Out No longer eligi ble based on patient's age to complete this topic Meningococcal B Vaccine Aged Out No l onger eligible based on patient's age to complete this topic Meningococcal Vaccine Aged Out No jagdish varghese eligible based on patient's age to complete this topic Pneumococcal Vaccine: Pediat rics (0 to 5 Years) and At-Risk Patients (6 to 64 Years) Aged Out No longer eligible b ased on patient's age to complete this topic RSV Immunizations Under 20 Months Aged Out No longer eligible based on patient's age to complete this topic Insurance Care Teams Bush Hog Operator Relationship Specialty Start Date End Date None, Provider, PCP - General UNKNOWN PHYSICIAN SPECIALTY 02/21/22
--- OUTSIDE RECORDS SUMMARY | 2024-05-04 13:14 | XMS_ITS | CONTINUITY OF CARE DOCUMENT ---
Author Name alva calle Address Unknown Organization [facility] Address [address] [place] [address] Phone [phone] Care Team Providers Care Die Lay Out Worker Name Role Phone Prateek WALTER, Rony Unavailable [phone] ALLISON CHAMBERLAIN MD Unavailable ALLISON CHAMBERLAIN MD Unavailable [phone] PROBLEMS Condition Status Date Provider Notes Deep Vein Thrombosis active ? Daysi arguello RN (History of) Pulmonary Embolism active ? Daysi Olivares RN (History of) ENCOUNTERS Date Type Provider Location Encounter Diag nosis - In-person encounter Office Visit Rony Chandra MD [facility] Office Deep Vein ThrombosisPulmonary Embolism VITAL SIGNS [...] Payer name Policy type / Coverage type [facility] republican ID [facility] [id number] ADVANCE DIRECTIVES Name Date DISCUSSED - NO [...]
== END 2024-05-04 13:12 | disposition home or self-care (01) ==
PROVIDERS: Emergency Provider Nurse Practitioner Family
DX: H66.001 Acute suppurative otitis media without spontaneous rupture of ear drum, right ear (principal); J06.9 Acute upper respiratory infection, unspecified
CPT/HCPCS: 99213; G0463

== ENCOUNTER 2024-06-01 18:35 | Emergency (ER) | payer OTHER, SELFPAY ==
[2024-06-01 18:49] VITALS: BP 117/67; PULSE 66; RESP 18; TEMP 37.2; O2SAT 100
--- NOTE | 2024-06-01 19:06 | ED.GENADULT ---
HPI - General Adult General Chief complaint: Extremity Injury, Lower Stated complaint: Pain In Leg Time Seen by Provider: 06/01/24 19:06 Source: patient, RN notes reviewed and old records reviewed Mode of arrival: ambulatory Limitations: no limitations History of Present Illness HPI narrative: 43-year-old female presents to the [facility] with pain to the left posterior lateral leg for 1 week. Patient reports that she was lifting weights when she felt a pop. Patient states the pain gets better when she rests it. patient increases with movement and when she elevates her leg. Also reports intermittent numbness. No midline tenderness. No injury. No erythema, ecchymosis noted. No rashes noted Related Data Home Medications ?Medication ?Instructions ?Recorded ?Confirmed ?Last Taken ?Type cholecalciferol (vitamin D3) 25 25 mcg PO DAILY 05/04/24 Unknown History mcg (1,000 unit) capsule levothyroxine 25 mcg tablet mcg 05/04/24 Unknown History thiamine HCl (vitamin B1) 250 mg 250 mg PO DAILY 05/04/24 Unknown History tablet Allergies Allergy/AdvReac Type Severity Reaction Status Date / Time erythromycin base Allergy Severe Swelling Verified 06/01/24 19:02 of Lip/Tongue/Throat Penicillins Allergy Severe Swelling Verified 06/01/24 19:02 of Lip/Tongue/Throat tramadol Allergy Mild Hives Verified 06/01/24 19:02 Review of Systems Review of Systems: All systems reviewed & are unremarkable except as noted in HPI and below Constitutional: Constitutional: Reports no additional constitutional complaints ENT: Reports system reviewed and no additional complaints, except as documented Cardiovascular: Cardiovascular: Reports no additional cardiovascular complaints, Denies chest pain and Denies dyspnea Respiratory: Respiratory: Reports no additional respiratory complaints, Denies chest congestion, Denies cough and Denies dyspnea Musculoskeletal: Musculoskeletal: Reports as per HPI Integumentary/Breasts: Skin/Breast: Reports system reviewed and no additional complaints, except as docu PMFSH Comments At the time of my signature, I reviewed and agree with the nursing past medical, surgical, social, and family history. There is no relevant family history pertinent to the patient complaint. Exam Const: General: cooperative, healthy appearing, comfortable, no acute distress, well developed, alert and well nourished Nutritional Appearance: well nourished Orientation/consciousness: patient oriented x3 Limitations: no limitations HENMT: Head: normal to inspection Eyes: General: appearance normal, both eyes and all related structures Alignment and Position: alignment normal Neck: Neck: normal visual inspection, full ROM, no lymphadenopathy and no meningeal signs Chest: Chest palpation & inspection: normal inspection of the chest Resp: Effort & Inspection: normal respiratory effort and able to speak in complete sentences Cardio: Rate: regular rate Back/Spine/Pelvis: Back: no CVA tenderness Thoracic/Lumbar Spine: thoracic and lumbar spine normal to inspection, No paraspinal muscle tenderness, No thoracic spinal tenderness and No lumbar spinal tenderness Pelvis: no pain with lateral compression and sciatic notch tenderness on the left Sacrum: no ecchymosis, no erythema and no swelling Skin: General skin exam: normal color and no rashes or lesions noted Neuro: General: patient oriented x3, gait normal, moves all extremities and no meningeal signs Cognition (Neuro): normal cognition Speech: normal speech Gait exam (Neuro): Normal gait present Extrem: General: normal to inspection, full ROM, capillary refill normal and normal gait Psych: Appearance: grossly normal and well kempt Mental Status: mental status grossly normal Speech and movement: Normal speech and movement present and Clear speech present Affect: normal affect Attitude: cooperative Course Course Level of Care: Express Care Visit Vital Signs Vital signs: Vital Signs Temperature 98.9 F 06/01/24 18:49 Pulse Rate 66 06/01/24 18:49 Respiratory Rate 18 06/01/24 18:49 Blood Pressure 117/67 06/01/24 18:49 Pulse Oximetry 100 06/01/24 18:49 Oxygen Delivery Room Air 06/01/24 18:49 Temperature 98.9 F 06/01/24 18:49 Pulse Rate 66 06/01/24 18:49 Respiratory Rate 18 06/01/24 18:49 Blood Pressure 117/67 06/01/24 18:49 Pulse Oximetry 100 06/01/24 18:49 Oxygen Delivery Room Air 06/01/24 18:49 Reviewed Medical Decision Making MDM Narrative Medical decision making narrative: Patient sitting comfortably in exam room. Nontoxic, vitals stable. Patient in no acute distress Patient presents for left leg posterior lateral discomfort. Exam consistent with sciatica. No midline tenderness. No signs of infection. Denies trauma. No x-rays indicated at this time. Patient is appropriate for outpatient treatment with close follow-up Discharge instructions reviewed with patient, as well as provided in writing per nursing staff. The instructions also include specific and strict return/GO TO THE ER as well as f/u information. All questions have been answered, and the patient deny any further questions with discharge and discharge plan. Some parts of this dictation were generated by voice recognition software and may contain typographical and/or grammatical inaccuracies. Differential Diagnosis Differential Diagnosis: sciatica, muscle strain, pain, lumbar radiculopathy Medical Records Medical records reviewed: Yes I reviewed the external patient's medical records. Vital Signs Vital Signs: Vital Signs Temperature 98.9 F 06/01/24 18:49 Pulse Rate 66 06/01/24 18:49 Respiratory Rate 18 06/01/24 18:49 Blood Pressure 117/67 06/01/24 18:49 Pulse Oximetry 100 06/01/24 18:49 Oxygen Delivery Room Air 06/01/24 18:49 Temperature 98.9 F 06/01/24 18:49 Pulse Rate 66 06/01/24 18:49 Respiratory Rate 18 06/01/24 18:49 Blood Pressure 117/67 06/01/24 18:49 Pulse Oximetry 100 06/01/24 18:49 Oxygen Delivery Room Air 06/01/24 18:49 Reviewed Lab Data Lab results reviewed: Yes I reviewed the patient's lab results. Labs: Reviewed Critical Care Time Critical Care Time Critical Care Time: No Discharge Plan Discharge Clinical Impression: Acute left-sided back pain with sciatica Patient Disposition: Home, Self-Care Condition: Stable Instructions: Antibiotic Form, Sciatica (ED), Lower Back Exercises (ED) Additional Instructions: Take ibuprofen as directed to decrease inflammation and to help pain. Take Baclofen (muscle relaxer) as directed. Do not drink, drive, operate machinery, or do anything dangerous while taking this medication Exercise:Combine aerobic exercise, like walking or swimming, with specific exercises to keep the muscles in your back and abdomen strong and flexible. Proper Lifting:Be sure to lift heavy items with your legs, not your back. Do not bend over to pick something up. Keep your back straight and bend at your knees. Weight:Maintain a healthy weight. Being overweight puts added stress on your lower back. Avoid Smoking:Both the smoke and the nicotine cause your spine to age faster than normal. Proper Posture:Good posture is important for avoiding future problems. A therapist can teach you how to safely stand, sit, and lift. Use warm moist heat to help with pain. Using topical such as Biofreeze, Kike-Gil or Aspercreme can also help Follow up with Primary provider in 2-3 days, This may become a chronic condition and they will be the one to help manage your pain and order additional testing. Go to the nearest ER if you develop problems with bladder/bowel function, weakness or loss of feeling in one or both of your legs. Patient Language: [place] Prescriptions: New ibuprofen 600 mg tablet 600 mg PO TID PRN (Reason: fever or pain) Qty: 30 0RF baclofen 10 mg tablet 10 mg PO TID PRN (Reason: muscle pain) Qty: 10 0RF prednisone 50 mg tablet 50 mg PO DAILY Qty: 7 0RF No Action levothyroxine 25 mcg tablet thiamine HCl (vitamin B1) 250 mg tablet 250 mg PO DAILY cholecalciferol (vitamin D3) 25 mcg (1,000 unit) capsule 25 mcg PO DAILY Follow-up/Referrals: Doreen,Chaitanya Diop [Other] - 1 Week ([facility] follow-up) Stand Alone Forms: Work/School Release IP Time of Disposition: 19:20
--- OUTSIDE RECORDS SUMMARY | 2024-06-01 19:21 | XMS_ITS | Referral Summary ---
Author Organization [facility] Address [address] [place] [address] Care Team Providers Care Steam Cleaning Machine Operator Name Role Phone Antione Servin MD Primary Care Provider Unavaila ble Source Comments [facility],non-owned Affiliates and Associated Physician Practices is amultiple site organization consisting of ambulatory clinics and hospital sitesin [place], [place], [place] and [place]. This disclosure is being madepursuant to the Care Everywhere program and may not contain all information available regarding this patient. Last updated 17.[facility] Allergies Active Allergy Reactions Criticality Noted [...] 64 07/09/2017 11:29 AM CDT Temperature 36.8 C (98.2 F) 07/09/2017 11:29 AM CDT Respiratory Rate 16 07/09/2017 11:29 AM CDT [...] [facility] Comment Lipid [facility] Comment: Normal values based on [place] [employer] guidelines. LIPID PROFILE GUIDELINES Total Cholesterol Category -------- Less than 200 mg/dl Desirable level that puts you at lower risk for heart disease. A cholesterol level of 200 mg/dl or greater increases your risk. 200 to 239 mg/dl Borderline high 240 mg/dl and above High blood cholesterol. A person with this level has more than twice the risk of heart disease compared to someone whose cholesterol is below 200 mg/dl. HDL Cholesterol Category -------- Less than 40 mg/dl Low HDL cholesterol. A major risk factor for heart disease. 40 to 59 mg/dl Borderline low. 60 mg/dl and above High HDL cholesterol. An HDL of 60 and above is considered protective against heart disease. LDL Cholesterol Category -------- Less than 100 mg/dl Optimal 100 to 129 mg/dl Near or above optimal 130 to 159 mg/dl Borderline high 160 to 189 mg/dl High 190 mg/dl and above Very high Triglyceride Category -------- Less than 150 mg/dl Normal 150 to 199 mg/dl Borderline high 200 to 499 mg/dl High 500 mg/dl and above Very high BLOOD SPECIMEN / Unknown 06/29/2009 12:10 AM CDT 06/29/2009 7:56 AM CDT Alphonso Horton MD LAB - [facility]ORTNEY ORDERABLES Performing Organization Address City/State/[facility] Co de Phone Number [facility] [address] [place] [address] from Last 3 Months or Most Recently [...] 7:36 PM 07/05/2009 5:06 AM Care Teams Steam Cleaning Machine Operator Relationship Specialty Start Date End Date Antione Servin MD PCP - General Internal Medicine 07/08/17
--- OUTSIDE RECORDS SUMMARY | 2024-06-01 19:22 | XMS_ITS | CONTINUITY OF CARE DOCUMENT ---
Author Name alva calle Address Unknown Organization [facility] Address [address] [place] [address] Phone [phone] Care Team Providers Care Parking Assistant Name Role Phone Prateek WALTER, Rony Unavailable [phone] ALLISON CHAMBERLAIN MD Unavailable ALLISON CHAMBERLAIN MD Unavailable [phone] PROBLEMS Condition Status Date Provider Notes Pulmonary Embolism active ? Daysi Olivares RN (History of) Deep Vein Thrombosis active ? Daysi arguello RN (History of) ENCOUNTERS Date Type Provider Location Encounter Diag nosis - In-person encounter Office Visit Rony Chandra MD [facility] Office Deep Vein ThrombosisPulmonary Embolism VITAL SIGNS [...] Payer name Policy type / Coverage type Critical access hospital libertarian ID [facility] [employer] [id number] ADVANCE DIRECTIVES Name Date DISCUSSED - NO [...]
--- OUTSIDE RECORDS SUMMARY | 2024-06-01 19:22 | XMS_ITS | Patient Health Summary ---
Author Organization [facility] Address [address] [place] [address] Care Team Providers Care Hazardous Material Specialist Name Role Phone Antione Servin MD Primary Care Provider Unavaila ble Note from [facility],non-owned Affiliates and Associated Physician Practices is amultiple site organization consisting of ambulatory clinics and hospital sitesin [place], [place], [place] and [place]. This disclosure is being madepursuant to the Care Everywhere program and may not contain all information available regarding this patient. Last updated 17.[facility] Allergies * Amoxicillin(Shortness of Breath) -High Criticality [...] HCT PANEL(Performed 03/19/2008) Performed for Normal Delivery ([facility]) * URINALYSIS NO MICROSCOPIC NO CULTURE(Performed 03/19/2008) Performed for Normal Delivery ([facility]) * CULTURE URINE(Performed 03/19/2008) Performed for Normal Delivery ([facility]) * TYPE + SCREEN PANEL(Performed 03/19/2008) Performed for Normal Delivery ([facility]) * CBC W AUTO DIFFERENTIAL(Performed 03/19/2008) Performed for Normal Delivery ([facility]) Results * CARDIAC EKG ORDER (07/12/2017 7:33 [...] cells are clear. IMPRESSION Normal brain MRI. Americo Bertrand MD MR ORDERABLES * MRI ANGIO BRAIN ART LEE WO CONT (07/09/2017 9:53 AM CDT) Anatomical Region Laterality Modality Head Magnetic Resonan ce 07/09/2017 11:0 8 AM CDT Impressions 07/09/2017 1:44 PM CDT Negative Narrative 07/09/2017 1:44 PM CDT MR of the head without contrast HISTORY: Altered mental status TECHNIQUE: Ypqp-zi-pbptwr magnetic resonance venography of the head with MIP reconstructions FINDINGS: The right transverse sinus is dominant. No sinus thrombosis or cortical vein thrombosis is seen. Procedure Note Nabor Bray MD - 07/09/2017 MR of the head without contrast HISTORY: Altered mental status TECHNIQUE: Kiin-cp-biewfd magnetic resonance venography of the head with [...] - 35.9 gm/dL 07/09/2017 4:58 AM CDT [facility] Platelet Count 315 153 - 416 x10E9/L 07/09/2017 4:58 AM CDT [facility] RDW-CV 13.2 12.1 - 14.9 % 07/09/2017 4:58 AM CDT [facility] MPV 9.9 9.4 - 12.9 fl 07/09/2017 4:58 AM CDT [facility] Neutrophils % 53.2 44.0 - 73.0 % 07/09/2017 4:58 AM CDT [facility] Lymphocytes % 35.9 20.0 - 43.0 % 07/09/2017 4:58 AM CDT [facility] Monocytes % 7.6 5.0 - 13.0 % 07/09/2017 4:58 AM CDT [facility] Eosinophils % 2.7 0.0 - 6.0 % 07/09/2017 4:58 AM CDT [facility] Basophils % 0.4 0.0 - 2.0 % 07/09/2017 4:58 AM CDT [facility] Immature Granulocytes 0.2 0 - 1 % 07/09/2017 4:58 AM CDT [facility] Neutrophil Absolute 2.71 2.01 - 7.14 x10E9/L 07/09/2017 4:58 AM CDT [facility] Lymphocytes Absolute 1.83 1.07 - 3.94 x10E9/L 07/09/2017 4:58 AM CDT [facility] Monocytes Absolute 0.39 0.26 - 1.07 x10E9/L 07/09/2017 4:58 AM CDT [facility] Eosinophils Absolute 0.14 0 - 0.47 x10E9/L 07/09/2017 4:58 AM CDT [facility] Basophils Absolute 0.02 0 - 0.08 x10E9/L 07/09/2017 4:58 AM CDT [facility] Immature Granulocytes Absolute 0.01 0.00 - 0.06 x10E9/L 07/09/2017 4:58 AM CDT [facility] nRBC Auto 0 /100 WBC 07/09/2017 4:58 AM CDT [facility] Blood BLOOD SPECIMEN / Unknown Venipuncture / Unknown 07/09/2017 3:57 AM CDT 07/09/2017 4:47 AM CDT Americo Bertrand MD LAB - HEMATOLOGY ORD ERABLES [facility] [address] [place] [address] * BASIC METABOLIC PANEL (CALCIUM TOTAL) (07/09/2017 3:57 AM CDT) Only the most recent of5 resultswithin the time period is included. Glucose 81 74 - 106 mg/dL 07/09/2017 5:17 AM CDT [facility] Sodium 140 136 - 145 mmol/L 07/09/2017 5:17 AM CDT [facility] Potassium 3.7 3.5 - 5.1 mmol/L 07/09/2017 5:17 AM CDT [facility] Chloride 107 98 - 107 mmol/L 07/09/2017 5:17 AM CDT [facility] CO2 22 22 - 31 mmol/L 07/09/2017 5:17 AM CDT [facility] Calcium 9.3 8.5 - 10.1 mg/dL 07/09/2017 5:17 AM CDT [facility] Anion Gap 11 8 - 16 mmol/L 07/09/2017 5:17 AM CDT [facility] BUN 9 7 - 21 mg/dL 07/09/2017 5:17 AM CDT [facility] Creatinine 0.97 0.50 - 1.30 mg/dL 07/09/2017 5:17 AM CDT [facility] eGFR by MDRD >60 >60 mL/min/1.7 3m2 07/09/2017 5:17 AM CDT [facility] eGFR by MDRD >60 >60 mL/min/1.7 3m2 07/09/2017 5:17 AM CDT [facility] Blood BLOOD SPECIMEN / Unknown Venipuncture / Unknown 07/09/2017 3:57 AM CDT 07/09/2017 4:47 AM CDT Americo Bertrand MD LAB - CHEMISTRY ORDStephany RABCARLA [facility] [address] [place] [address] * TROPONIN I (07/08/2017 5:58 PM CDT) Only the most recent of11 resultswithin the time period is included. Troponin I <0.015 0.000 - 0.049 ng/mL 07/08/2017 6:18 PM CDT [facility] Blood BLOOD SPECIMEN / Unknown Venipuncture / Unknown 07/08/2017 5:58 PM CDT 07/08/2017 6:00 PM CDT Narrative [facility] - 07/08/2017 6:18 PM CDT Note: [...] sepsis. Americo Bertrand MD LAB - CHEMISTRY WILLIAM [facility] Organization Address City/State/[facility] Co de Phone Number [facility] [address] [place] [phone] * XR CHEST 1VW PORTABLE (07/08/2017 12:04 [...] basilar artery, and branch vessels of the lime of Garcia are widely patent without evidence [...] basilar artery, and branch vessels of the lime of Garcia are widely patent without evidence [...] POINT OF CARE ORDERABLES Performing Organization Address City/[facility]/ZIP Co de Phone Number [facility] [phone] [place] [address], [facility] [phone] * CREATININE BLOOD - POINT OF CARE (IP) (07/08/2017 11:25 AM CDT) Creatinine POCT 0.96 0.7 - 1.2 mg/dL [facility] QC Verified Yes Yes [facility] P[facility] T TEST[facility] Blood BLOOD SPECIMEN / Unknown 07/08/2017 11:25 AM CDT Americo Bertrand MD LAB - POINT OF CARE ORDERABLES Performing Organization Address [facility] Co de Phone Number [facility] [id number] [place] [address], [facility] [phone] * NT-PRO BNP (07/08/2017 11:23 AM CDT) Only the most recent of2 resultswithin the time period is included. NT-proBNP 31.0 <300.0 pg/mL 07/08/2017 11:49 AM CDT [facility] Blood BLOOD SPECIMEN / Unknown Venipuncture / Unknown 07/08/2017 11:23 AM CDT 07/08/2017 11:28 AM CDT Narrative [facility] - 07/08/2017 11:49 AM CDT NT-proBNP Patient Age Acute HF Unlikely Acute HF Likely <50 years <300 pg/mL >450 pg/mL 50-75 years <300 pg/mL >900 pg/mL >75 years <300 pg/mL >1800 pg/mL Reference: PEYTON Witt et al. [...] fibrillation. Americo Bertrand MD LAB - CHEMISTRY ORDE TRISTAN Performing Organization Address [facility] de Phone Number [facility] [phone] [place] [phone] * PT PTT PANEL (07/08/2017 11:23 AM CDT) Only the most recent of5 resultswithin the time period is included. PT 11.0 9.5 - 11.6 sec 07/08/2017 11:43 AM CDT [facility] INR 1.0 0.9 - 1.1 07/08/2017 11:43 AM CDT [facility] PTT 25.6 21.0 - 32.0 sec 07/08/2017 11:43 AM CDT [facility] Blood BLOOD SPECIMEN / Unknown Venipuncture / Unknown 07/08/2017 11:23 AM CDT 07/08/2017 11:28 AM CDT Narrative [facility] - 07/08/2017 11:43 AM CDT Conventional Warfarin Anticoagulant Therapy: INR Reference Range: 2.0-3.0 Intensive Warfarin Anticoagulant Therapy: INR Reference Range: 2.5-3.5 Heparin Therapeutic Range for PTT: 47.7 - 68.6 seconds. Americo Bertrand MD LAB - COAGULATION OR DERABLES Performing Organization Address [facility] de Phone Number [facility] [address] [place] [address] * (ABNORMAL) COMPREHENSIVE METABOLIC PANEL (07/08/2017 11:23 AM CDT) Only the most recent of6 resultswithin the time period is included. Glucose 86 74 - 106 mg/dL 07/08/2017 11:48 AM CDT [facility] Sodium 139 136 - 145 mmol/L 07/08/2017 11:48 AM CDT [facility] Potassium 3.9 3.5 - 5.1 mmol/L 07/08/2017 11:48 AM CDT [facility] Chloride 108(H) 98 - 107 mmol/L 07/08/2017 11:48 AM CDT [facility] CO2 24 22 - 31 mmol/L 07/08/2017 11:48 AM CDT [facility] Calcium 8.5 8.5 - 10.1 mg/dL 07/08/2017 11:48 AM CDT [facility] Anion Gap 7(L) 8 - 16 mmol/L 07/08/2017 11:48 AM CDT [facility] BUN 6(L) 7 - 21 mg/dL 07/08/2017 11:48 AM CDT [facility] Creatinine 1.10 0.50 - 1.30 mg/dL 07/08/2017 11:48 AM CDT [facility] Alkaline Phosphatase 88 38 - 126 U/L 07/08/2017 11:48 AM CDT [facility] ALT 20 13 - 61 U/L 07/08/2017 11:48 AM CDT [facility] AST 15 5 - 40 U/L 07/08/2017 11:48 AM CDT [facility] Protein Total 7.6 6.4 - 8.2 gm/dL 07/08/2017 11:48 AM CDT [facility] Albumin 3.7 3.4 - 5.0 gm/dL 07/08/2017 11:48 AM CDT [facility] Bilirubin Total 0.9 0.2 - 1.0 mg/dL 07/08/2017 11:48 AM CDT [facility] eGFR by MDRD 56(L) >60 mL/min/1.7 3m2 07/08/2017 11:48 AM CDT [facility] eGFR by MDRD >60 >60 mL/min/1.7 3m2 07/08/2017 11:48 AM CDT [facility] Blood BLOOD SPECIMEN / Unknown Venipuncture / Unknown 07/08/2017 11:23 AM CDT 07/08/2017 11:28 AM CDT Americo Bertrand MD LAB - CHEMISTRY ORDE TRISTAN [facility] [address] [place] [address] * EKG 12-LEAD (07/08/2017 11:18 AM CDT) Only the most recent of5 resultswithin the time period is included. Ventricular Rate 89 BPM [facility] Atrial Rate 89 BPM [facility] P-R Interval 134 ms [facility] QRS Duration ms 80 ms [facility] Q-T Interval ms 364 ms [facility] QTC Calculation (Bezet) 442 ms [facility] Calculated P [place] 25 degrees [facility] Calculated R [place] 40 degrees [facility] Calculated T [place] 23 degrees [facility] Interpretation EKG Normal sinus rhythm Normal ECG Confirmed by BLANCHE MORENO MD ([id number]) on 07/08/2017 3:47:49 PM [facility] 07/08/2017 11:1 8 AM CDT 07/08/2017 3:47 PM CDT Ameirco Bertrand MD ECG ORDERABLES Performing Organization Address [facility] Co de Phone Number [facility] * CT BRAIN STROKE PROTOCOL [...] - 106 mg/dL 07/09/2017 9:21 AM CDT [facility] Specimen Type UNKNOWN SAMPLE TYPE 07/09/2017 9:21 AM CDT [facility] Blood BLOOD SPECIMEN / Unknown 07/08/2017 11:11 AM CDT 07/09/2017 9:21 AM CDT Americo Bertrand MD LAB - POINT OF CARE ORDERABLES Performing Organization Address City/State/[facility] Co de Phone Number [facility] [address] [place] [address] * CARDIAC PROCEDURE ORDER (06/20/2017 3:03 AM CDT) Narrative 06/20/2017 3:03 AM CDT Ordered by an unspecified provider. Scanned Document CARDIAC SERVICES ORD ERABLES * (ABNORMAL) PTT (06/14/2017 4:42 PM ENTERPRISE SALES PERSON) Only the most recent of3 resultswithin the time period is included. PTT 55.5(H) 21.0 - 32.0 sec 06/14/2017 5:07 PM ENTERPRISE SALES PERSON [facility] Blood BLOOD SPECIMEN / Unknown Venipuncture / Unknown 06/14/2017 4:42 PM ENTERPRISE SALES PERSON 06/14/2017 4:51 PM ENTERPRISE SALES PERSON Narrative [facility] - 06/14/2017 5:07 PM ENTERPRISE SALES PERSON Heparin Therapeutic Range for PTT: 47.7 - 68.6 seconds. Barbara Wood MD LAB - COAGULATION OR DERABLES [facility] [address] [place] [address] * ECHOCARDIOGRAM 2D WITH DOPPLER (06/14/2017 9:23 AM ENTERPRISE SALES PERSON) Only the most recent of2 resultswithin the time period is included. 06/14/2017 9:23 AM ENTERPRISE SALES PERSON Narrative [facility] - 06/15/2017 11:23 AM ENTERPRISE SALES PERSON [address] [address] Transthoracic Echocardiogram 2D, M-mode, Doppler, and Color Doppler Patient: RADHA MCKEON MR number: [id number] Height: 63 in Weight: 175.6 lb BSA: 1.83 m Study date: 14-Jun-2017 : 1980 Age: 36 years Gender: Female Race: Black Allergies: PENICILLINS, ERYTHROMYCIN, PEANUT-DERIVED Reading Physician: Tori Chandra MD Referring Physician: Tori Chandra MD HOME ENERGY CONSULTANT SUPERVISOR: Harmony Lopez RDCS Cardiology Group: [facility] Summary: - History: - [...] Procedure: The study was performed in the [facility]. This was a routine study. Room 306 [...] MV A Cody: 0.6 m/s MV Dec [place]: 2.2 m/s2 MV DecT: 212.2 ms MV E Cody: 0.5 m/s MV E/A Ratio: 0.8 Septal e': 0.1 m/s Prepared and signed by Tori Chandra MD Signed 15-Jun-2017 11:23:38 Procedure Note Unknown, Provider, MD - 06/15/[address] [address] Transthoracic Echocardiogram 2D, M-mode, Doppler, and Color Doppler Patient: RADHA MCKEON MR number: [id number] Height: 63 in Weight: 175.6 lb BSA: 1.83 m Study date: 14-Jun-2017 : 1980 Age: 36 years Gender: Female Race: Black Allergies: PENICILLINS, ERYTHROMYCIN, PEANUT-DERIVED Reading Physician: Tori Chandra MD Referring Physician: Tori Chandra MD HOME ENERGY CONSULTANT SUPERVISOR: Harmony Lopez RDCS Cardiology Group: [facility] Summary: - History: - [...] Procedure: The study was performed in the [facility]. This was a routine study. Room 306 [...] MV A Cody: 0.6 m/s MV Dec [place]: 2.2 m/s2 MV DecT: 212.2 ms MV E Cody: 0.5 m/s MV E/A Ratio: 0.8 Septal e': 0.1 m/s Prepared and signed by Tori Chandra MD Signed 15-Jun-2017 11:23:38 Shannan Sorto PA-C ECHO ORDERABLES Performing Organization Address City/[facility]/ZIP Co de Phone Number [facility] * T4 FREE DIRECT REFLEXED (06/14/2017 2:54 AM ENTERPRISE SALES PERSON) T4 Free 1.17 0.65 - 1.34 ng/dL 06/14/2017 3:50 AM ENTERPRISE SALES PERSON [facility] Blood BLOOD SPECIMEN / Unknown Venipuncture / Unknown 06/14/2017 2:54 AM ENTERPRISE SALES PERSON 06/14/2017 3:06 AM ENTERPRISE SALES PERSON Shannan Elaine Macario RECINOS LAB - CHEMISTRY ORDE RABCARLA Performing Organization Address [facility] de Phone Number [facility] [address] [place] [address] * (ABNORMAL) TSH REFLEX FREE T4 (06/14/2017 2:54 AM ENTERPRISE SALES PERSON) TSH 8.91(H) 0.358 - 3.740 ulU/mL 06/14/2017 3:38 AM ENTERPRISE SALES PERSON [facility] Blood BLOOD SPECIMEN / Unknown Venipuncture / Unknown 06/14/2017 2:54 AM ENTERPRISE SALES PERSON 06/14/2017 3:06 AM ENTERPRISE SALES PERSON Shannan Henry Macario RECINOS LAB - CHEMISTRY ORDE TRISTAN Performing Organization Address [facility] Co de Phone Number [facility] [phone] [place] [phone] * CULTURE VRE (06/13/2017 11:38 PM ENTERPRISE SALES PERSON) Only the most recent of2 resultswithin the time period is included. Culture Negative for vancomycin-resi stant Enterococci (VRE) JASVIR 06/15/2017 6:12 AM ENTERPRISE SALES PERSON [facility] Stool RECTAL SWAB / Unknown Collection / Unknown 06/13/2017 11:38 PM ENTERPRISE SALES PERSON 06/13/2017 11:47 PM ENTERPRISE SALES PERSON Mellissa Tyson MD LAB - MICROBIOLOGY O JF Performing Organization Address [facility] Co de Phone Number [facility] [address] [place] [address], [facility] [phone] * CULTURE MRSA (06/13/2017 11:38 PM ENTERPRISE SALES PERSON) Only the most recent of2 resultswithin the time period is included. Culture Negative for methicillin-resist ant Staphylococcus aureus (MRSA) JASVIR 06/15/2017 6:12 AM ENTERPRISE SALES PERSON [facility] Microbiology SPECIMEN FROM NASAL FOSSAE / Unknown Collection / Unknown 06/13/2017 11:38 PM ENTERPRISE SALES PERSON 06/13/2017 11:47 PM ENTERPRISE SALES PERSON Mellissa Tyson MD LAB - MICROBIOLOGY O JF Performing Organization Address [facility] Co de Phone Number [facility] [address] [place] [address], [facility] [phone] * ACT - POINT OF CARE (06/13/2017 10:41 PM ENTERPRISE SALES PERSON) ACT POCT [phone] Seconds [facility] QC Verified Yes Yes [facility] POC T TEST[facility] Blood BLOOD SPECIMEN / Unknown 06/13/2017 10:41 PM ENTERPRISE SALES PERSON Tori Chandra MD LAB - POINT OF CARE ORDERABLES Performing Organization Address [facility] Co de Phone Number [facility] [address] [place] [address], [facility] [phone] * ED CRITICAL CARE (06/13/2017 5:00 PM ENTERPRISE SALES PERSON) Narrative Radha Monahan MD - 06/13/2017 5:00 PM ENTERPRISE SALES PERSON Radha Monahan MD 06/13/2017 5:00 PM Critical Care Performed by: RADHA MONAHAN [...] ORDERABLES * MAGNESIUM BLOOD (06/13/2017 1:58 PM ENTERPRISE SALES PERSON) Magnesium 2.2 1.6 - 2.6 mg/dL 06/13/2017 2:24 PM ENTERPRISE SALES PERSON [facility] Blood BLOOD SPECIMEN / Unknown Venipuncture / Unknown 06/13/2017 1:58 PM ENTERPRISE SALES PERSON 06/13/2017 2:00 PM ENTERPRISE SALES PERSON Radha Monahan MD LAB - CHEMISTRY WILLIAM HUDSON Performing Organization Address [facility] Co de Phone Number [facility] [phone] [place] [phone] * HCG BLOOD QUALITATIVE (06/13/2017 1:58 PM ENTERPRISE SALES PERSON) HCG Qual Serum Negative Negative 06/13/2017 2:14 PM ENTERPRISE SALES PERSON [facility] Blood BLOOD SPECIMEN / Unknown Venipuncture / Unknown 06/13/2017 1:58 PM ENTERPRISE SALES PERSON 06/13/2017 2:00 PM ENTERPRISE SALES PERSON Radha Monahan MD LAB - CHEMISTRY makerSQR Performing Organization Address City/[facility] Co de Phone Number [facility] [phone] [place] [address] * CARDIAC CATH PROCEDURE (06/13/2017 12:00 PM ENTERPRISE SALES PERSON) 06/13/2017 12:0 0 PM ENTERPRISE SALES PERSON Narrative Procedure Note Tori Chandra MD - 06/14/2017 1:25 AM CST [facility] CARDIAC CATHETERIZATION PATIENT: RADHA MCKEON MR#: [id number] ADMIT DATE: 06/13/2017 CSN: [id number] PROCEDURE DATE: 06/13/2017 :1980 PHYSICIAN: Tori Chandra MD ROOM: [place] [address] REFERRING PHYSICIAN: RADHA MONAHAN Patient of Dr. Shannan Sorto. INDICATION FOR PROCEDURE: Bilateral saddle pulmonary embolism. PROCEDURE PERFORMED: Pulmonary artery angiography and right heart catheterization and pulmonary artery thrombectomy in the right mainpulmonary artery. TECHNIQUE: After informed consent, the patient was brought to the cathlab. Right femoral vein was anesthestized with 2% lidocaine. The rightfemoral vein was punctured and cannulated with 7-Mauritanian sheath. A JR4 catheterwas advanced into the [...] treated with SolentOmni Angiojet thrombectomy over a Tyler Advantage wire with adequate results.I did distal [...] in participation. TORI CHANDRA MD SD/MODL #: [id number] cc: Tori Chandra MD Primary Care Physician HARMAN Hamilton MEDICAL/SURGICAL CARDIAC CATHETERIZATION - DP Tori Chandra MD CARDIAC SERVICES ORD ERABLES [facility] * VAS RIGHT VENOUS DUPLEX LE (06/12/2017 11:26 AM ENTERPRISE SALES PERSON) Anatomical Region Laterality Modality Ultrasound 06/12/2017 11:0 1 AM ENTERPRISE SALES PERSON Narrative Procedure Note Grey Villela MD - 06/12/2017 [place] [address] Lower Extremity Venous Ultrasound Report Pat.Name: RAINARADHA.ID: [id number] .Date: 06/12/2017 Exam Time: 11:01:00 AM Study Type:LE Venous Age: 9 1980,36Y Sex: FEMALE Sonogrphr: Milton Michele RVT Pat. Stat.:Outpatient Room: ED-10 Reason for Study:R79.89 Elevated D-dimer, M79.661 Tenderness of right calf Procedures:Lower Extremity Venous - Right Visit ID: [id number] SUMMARY: Acute DVT in right leg. FINDINGS: [...] ERABLES * (ABNORMAL) D-DIMER (06/12/2017 9:16 AM ENTERPRISE SALES PERSON) D-Dimer 8.60(H) 0.17 - 0.5 mg/L FEU 06/12/2017 9:41 AM ENTERPRISE SALES PERSON [facility] Blood BLOOD SPECIMEN / Unknown Venipuncture / Unknown 06/12/2017 9:16 AM ENTERPRISE SALES PERSON 06/12/2017 9:20 AM ENTERPRISE SALES PERSON Narrative [facility] - 06/12/2017 9:41 AM ENTERPRISE SALES PERSON The [employer] D-Dimer assay is intended for [...] - COAGULATIO N ORDERABLES Performing Organization Address [facility] de Phone Number [facility] [address] [place] [phone] * PT-INR (06/12/2017 9:16 AM ENTERPRISE SALES PERSON) PT 9.8 9.5 - 11.6 sec 06/12/2017 9:41 AM ENTERPRISE SALES PERSON [facility] INR 1.0 0.9 - 1.1 06/12/2017 9:41 AM [facility] Blood BLOOD SPECIMEN / Unknown Venipuncture / Unknown 06/12/2017 9:16 AM ENTERPRISE SALES PERSON 06/12/2017 9:20 AM ENTERPRISE SALES PERSON Narrative [facility] - 06/12/2017 9:41 AM ENTERPRISE SALES PERSON Conventional Warfarin Anticoagulant Therapy: INR Reference Range: 2.0-3.0 Intensive Warfarin Anticoagulant Therapy: INR Reference Range: 2.5-3.5 Paloma Toledo MD LAB - COAGULATIO N ORDERABLES Performing Organization Address [facility] de Phone Number [facility] [address] [place] [phone] * HCG BETA BLOOD QUANTITATIVE (06/12/2017 9:16 AM ENTERPRISE SALES PERSON) hCG Quantitative <1 mIU/mL 06/13/19 18 11:58 AM [facility] Blood BLOOD SPECIMEN / Unknown Venipuncture / Unknown 06/12/2017 9:16 AM ENTERPRISE SALES PERSON 06/12/2017 9:20 AM ENTERPRISE SALES PERSON Narrative [facility] - 06/12/2017 11:58 AM ENTERPRISE SALES PERSON hCG Reference Range, mIU/mL: Males 0-2.0 Non Females 0-6.0 Perimenopausal Females ages 41-55* 0-7.7 Postmenopausal Females age >55* 0-14 Females, Weeks after Last Menstrual Period 0.2-1 week 5-50 1 - 2 weeks 50-500 2 - 3 weeks 100-5000 3 - 4 weeks 500-10,000 4 - 5 weeks 1000-50,000 5 - 6 weeks 10,000-100,000 6 - 8 weeks 15,000-200,000 2 - 3 months 10,000-100,000 Trophoblastic Disease >100,000 *In higher than expected hCG in females > age 40, a serum FSH >20 IU/L makes unlikely. Paloma Toledo MD LAB - CHEMISTRY ORDERABLES Performing Organization Address City/[facility] Co de Phone Number [facility] [address] [place] [address] * CK BLOOD (06/12/2017 9:16 AM ENTERPRISE SALES PERSON) CK 46 35 - 232 U/L 06/12/2017 9:40 AM ENTERPRISE SALES PERSON [facility] Blood BLOOD SPECIMEN / Unknown Venipuncture / Unknown 06/12/2017 9:16 AM ENTERPRISE SALES PERSON 06/12/2017 9:20 AM ENTERPRISE SALES PERSON Paloma Toledo MD LAB - CHEMISTRY ORDERABLES Performing Organization Address [facility] [facility] de Phone Number [facility] [address] [place] [address] * CT HEAD - NON CONTRAST (06/06/2010 1:10 AM ENTERPRISE SALES PERSON) Anatomical Region Laterality Modality Head Computed Tomogra phy 06/06/2010 8:47 AM ENTERPRISE SALES PERSON Impressions 06/06/2010 8:47 AM ENTERPRISE SALES PERSON Normal unenhanced CT brain. Preliminary report was provided by [facility]. Narrative 06/06/2010 8:[address]ISE SALES PERSON CT Brain Noncontrast Indication: Fall, head injury [...] CT brain. Preliminary report was provided by [facility]. Teresa Altamirano MD CT ORDERABLES * XR FOOT 3+ VW LEFT (06/06/2010 12:16 AM ENTERPRISE SALES PERSON) Anatomical Region Laterality Modality Ankle / Foot Radiographic Cyndie ging 06/06/2010 8:54 AM ENTERPRISE SALES PERSON Impressions 06/06/2010 11:02 AM ENTERPRISE SALES PERSON No fracture or dislocation identified. Please see above. Narrative 06/06/2010 11:02 AM ENTERPRISE SALES PERSON EXAMINATION: Left foot 3 views. INDICATION: Left [...] ANKLE 3+ VW LEFT (06/06/2010 12:15 AM ENTERPRISE SALES PERSON) Anatomical Region Laterality Modality Lower Extremity Radiographic Cyndie ging 06/06/2010 8:56 AM ENTERPRISE SALES PERSON Impressions 06/06/2010 8:56 AM ENTERPRISE SALES PERSON No fracture or dislocation identified. Please see above. Narrative 06/06/2010 8:56 AM ENTERPRISE SALES PERSON Examination: Left ankle 3 views Indication: Left [...] POINT OF CARE ORDERABLES [facility] POCT TESTING [address] [place] [address] * (ABNORMAL) CK + CKMB PANEL (07/03/2009 11:45 AM CDT) Only the most recent of5 resultswithin the time period is included. CK 454(H) 30 - 135 U/L [facility] CK-MB 3.0 0.0 - 5.0 ng/ml [facility] BLOOD SPECIMEN / Unknown 07/03/2009 11:45 AM CDT 07/03/2009 11:54 AM CDT Rita Bocanegra DIRECTOR OF NURSES REGISTRY-[facility] LAB - CHEMISTRY ORDERABLES Performing Organization Address City/[facility]/ZIP Co de Phone Number [facility] [address] [place] [address] * CULTURE BLOOD (07/02/2009 1:00 PM CDT) Only the most recent of5 resultswithin the time period is included. Report [facility] Comment:Final - CULTURE No Growth PERIPHERAL BLOOD / Unknown 07/02/2009 1:00 PM CDT 07/02/2009 1:34 PM CDT Adam Mcallister MD LAB - MICROBIOLOGY O RDERABLES Performing Organization Address [facility] Co de Phone Number [facility] [address] [place] [address] * XR CHEST PA AND LATERAL (ROUTINE) [...] The mediastinum and bony thorax are unremarkable. Procedure Note Sherif Fenton MD - 07/02/2009 [...] Arterial 7.467(H) 7.35 - 7.45 pH Units [facility] pCO2 Arterial 34.4(L) 35 - 45 mm Hg [facility] pO2 Arterial 155.5(H) 70 - 100 mm Hg [facility] HCO3 Arterial 24.3 22 - 26 mmol/L [facility] Base Excess Arterial 1.2 -2.0 - 2.0 [facility] O2 Saturation Arterial 99.1 97 - 100 % [facility] FI O2 Arterial or Capillary 40.0 % [facility] Temp 37.0 oC [facility] Site R. Brachial [facility] ARTERIAL BLOOD SPECIMEN / Unknown 07/01/2009 9:41 AM CDT 07/01/2009 9:45 AM CDT Kostas Ramos MD LAB - BLOOD GASES OR DERABLES Performing Organization Address City/[facility]/ZIP Co de Phone Number [facility] [address] [place] [address] * (ABNORMAL) POTASSIUM BLOOD (06/29/2009 3:30 PM CDT) Pathologist [facility] Potassium 3.4(L) 3.6 - 5.0 mmol/L [facility] BLOOD SPECIMEN / Unknown 06/29/2009 3:30 PM CDT 06/29/2009 3:48 PM CDT Nabor Carmona MD LAB - CHEMISTRY [facility] [address] [place] [address] * BENZODIAZEPINE URINE CONFIRMATION (06/29/2009 6:40 AM CDT) Pathologist [facility] Benzodiazepines Confirm Urine Negative by GC/MS with a cutoff of 300 ng/mL. ng/ml [facility] URINE / Unknown 06/29/2009 6 :40 AM CDT 06/29/2009 12:43 PM CDT Narrative Resulting Agency Comment Performed By [facility] [address] [place] [address] Javad Quintanilla MD LAB - URINE CHEMISTR Y ORDERABLES [facility] [address] [place] [address] * DRUG SCREEN TOX URINE PANEL (06/29/2009 6:40 AM CDT) Amphetamines Screen Urine Not Detected 1000 ng/mL Cutoff ng/ml [facility] Barbiturates Screen Urine Not Detected 300 ng/mL Cutoff ng/ml [facility] Benzodiazepines Screen Urine Presumptive Positive 300 ng/mL Cutoff ng/ml [facility] Cannabinoids Screen Urine Not Detected 20 ng/mL Cutoff ng/ml [facility] Cocaine Screen Urine Not Detected 300 ng/mL Cutoff ng/ml [facility] Methadone Screen Urine Not Detected 300 ng/mL Cutoff ng/ml [facility] Methaqualone Screen Urine Not Detected 300 ng/mL Cutoff ng/ml [facility] Opiate Screen Urine Not Detected 300 ng/mL Cutoff ng/ml [facility] Phencyclidine Screen Urine Not Detected 25 ng/mL Cutoff ng/ml [facility] Propoxyphene Screen Urine Not Detected 300 ng/mL Cutoff ng/ml [facility] Oxycodone Screen Urine Not Detected 100 ng/mL Cutoff ng/ml [facility] Ecstasy Screen Urine Not Detected 500 ng/mL Cutoff ng/ml [facility] Creatinine Urine Tox 44.7 mg/dl [facility] GC/MS Screen Urine Positive for Lidocaine [facility] Comment GC/MS Screen [facility] Comment: The GC/MS screen is a qualitative test for illicit drugs, narcotics, tranquilizers, sedative-hypnotics, antidepressants, cold medications, antihistamines, anticonvulsants, appetite suppressants, and date rape drugs, (Ecstasy, GHB-Gamma Hydroxybutyrate, Rolhypnol, Ketamine). Legal Disclaimer Urine This drug screen is designed for MEDICAL purposes only. It is not to be used for legal purposes including but not limited to workman's comp, police investigations, occupational issues, child custody. [facility] URINE / Unknown 06/29/2009 6 :40 AM CDT 06/29/2009 6:48 AM CDT Narrative Resulting Agency Comment Performed By [facility] [address] [place] [address] Tiffani Rosa MD LAB - URINE CHEM ISTRY ORDERABLES [facility] [address] [place] [address] * CHEST ONE VIEW (06/29/2009 5:02 AM [...] per preliminary report, findings were discussed by [facility] physician with TELLO Ansari. Narrative 06/29/2009 8:37 [...] per preliminary report, findings were discussed by [facility] physician with TELLO Ansari. Alphonso Horton MD CT ORDERA BLES * (ABNORMAL) B-TYPE NATRIURETIC PEPTIDE (06/29/2009 12:10 AM CDT) BNP 123.9(H) 0.0 - 99.99 pg/ml [facility] Interpretation BNP S [facility] Comment: A cutoff of 100 pg/ml has been demonstrated to provide the maximal combination of sensitivity, specificity, and negative predictive value for contributing to the diagnosis of congestive heart failure(CHF) only. A BNP value greater than or equal to 100 pg/ml is consistent with a diagnosis of CHF in the appropriate clinical setting. False positive results are more common in females greater than 75 years of age. Blood concentrations of natriuretic peptides may also be elevated in patients with myocardial infarction and in patients who are candidates for or are undergoing renal dialysis. BLOOD SPECIMEN WITH EDTA / Unknown 06/29/2009 12:10 AM CDT 06/29/2009 8:40 AM CDT Narrative [facility] - 06/29/2009 9:42 AM CDT gwen Brenda Grullon MD LAB - CHEMISTRY ORDERABLES Performing Organization Address [facility] Co de Phone Number [facility] [address] [place], [place] [id number] * (ABNORMAL) LDH BLOOD (06/29/2009 12:10 AM CDT) LDH 633(H) 313 - 618 U/L [facility] BLOOD SPECIMEN / Unknown 06/29/2009 12:10 AM CDT 06/29/2009 12:26 AM CDT Alphonso Horton MD LAB - GRUPO CORTNEY ORDERABLES Performing Organization Address [facility] Phone Number [facility] [address] [place] [address] * HAPTOGLOBIN (06/29/2009 12:10 AM CDT) Haptoglobin 64.9 40 - 240 mg/dl [facility] BLOOD SPECIMEN / Unknown 06/29/2009 12:10 AM CDT 06/29/2009 12:26 AM CDT Alphonso Horton MD LAB - GRUPO CORTNEY ORDERABLES Performing Organization Address [facility] de Phone Number [facility] [address] [place] [address] * (ABNORMAL) LIPID PROFILE (06/29/2009 12:10 AM CDT) Cholesterol 224(H) <200 mg/dl [facility] Triglycerides 101 <150 mg/dl [facility] HDL Cholesterol 41 >=40 mg/dl [facility] VLDL Calculated 20 <=30 mg/dl [facility] LDL Calculated 163(H) <100 mg/dl [facility] Cholesterol Risk Factor 5.46(H) <4.45 [facility] Comment Lipid [facility] Comment: Normal values based on [place] [employer] guidelines. LIPID PROFILE GUIDELINES Total [...] Horton MD LAB - GRUPO CORTNEY ORDERABLES [facility] [address] [place] [address] * URINALYSIS ROUTINE AUTO (06/29/2009 12:05 AM CDT) Source Catheter [facility] Color UA Light Yellow [facility] Character UA Clear [facility] Glucose UA NEGATIVE NEGATIVE mg/dl [facility] Bilirubin UA NEGATIVE NEGATIVE [facility] Ketone UA NEGATIVE NEGATIVE mg/dl [facility] Specific [place] UA <=1.005 1.003 - 1.030 [facility] Blood UA NEGATIVE NEGATIVE [facility] pH UA 5.5 5.0 - 9.0 [facility] Protein UA NEGATIVE NEGATIVE-TR SHADI mg/dl [facility] Urobilinogen UA 0.2 0.2 - 1.0 Delmer Units/dl [facility] Nitrite UA NEGATIVE NEGATIVE [facility] Leukocyte UA NEGATIVE NEGATIVE [facility] URINE SPECIMEN COLLECTION, CATHETERIZED / Unknown 06/29/2009 12:05 AM CDT 06/29/2009 1:15 AM CDT Javad Quintanilla MD LAB - URINALYSIS ORD ERABLES Performing Organization Address [facility] Co de Phone Number [facility] [address] [place] [address] * HCG URINE QUALITATIVE (06/29/2009 12:05 AM CDT) HCG Qual Urine Negative SEE BELOW [facility] Comment: Normal, Negative Pos, Sensitivity 25 MIU/ML Comment hCG Urine [facility] Comment: For optimal results, it is best to test the first urine voided in the morning because it contains the greatest concentration of hCG. URINE / Unknown 06/29/2009 1 2:05 AM CDT 06/29/2009 1:16 AM CDT Alphonso Horton MD LAB - URI NALYSIS ORDERABLES Performing Organization Address [facility] de Phone Number [facility] [address] [place] [address] * CULTURE SPUTUM (06/29/2009 12:00 AM CDT) Report [facility] Comment: Final - GRAM STAIN <10 Epithelial cells per low power field <10 WBC's per low power field Light rbc's Heavy debris CULTURE Light usual aerobic jordon SPUTUM / Unknown 06/29/2009 06/30/19 10 1:04 AM CDT Alphonso Horton MD LAB - JASVIR ROBIOLOGY ORDERABLES Performing Organization Address City/[facility] Co de Phone Number [facility] [address] [place] [address] * (ABNORMAL) COAGULATION PANEL W D-DIMER (06/29/2009 12:00 AM CDT) PT 10.7 9.4 - 11.4 seconds [facility] INR 1.01 SEE BELOW [facility] Comment: Conventional anticoagulation 2.0-3.0 Intensive anticoagulation 2.5-3.5 PTT 25.6 24.0 - 33.0 seconds [facility] D-Dimer 10.47(HH) 0.43 - 2.8 mg/L [facility] Fibrinogen 286 150 - 450 mg/dl [facility] Platelet Count 255 150 - 400 K/CUMM [facility] Comment D-Dimer [facility] Comment: Elevated results above the normal range may indicate DIC in the appropriate clinical setting. Serial evaluations may yield information regarding the clinical course. If result is greater than 1.0 mg/L, DVT or PE is possible. BLOOD SPECIMEN / Unknown 06/29/2009 06/29/2009 12:26 AM CDT Alphonso Horton MD LAB - COA GULATION ORDERABLES Performing Organization Address [facility] de Phone Number [facility] [address] [place] [address] * (ABNORMAL) LACTIC ACID BLOOD (06/28/2009 11:45 PM CDT) Lactic Acid 2.2(H) 0.7 - 2.1 mmol/L [facility] BLOOD SPECIMEN / Unknown 06/28/2009 11:45 PM CDT 06/29/2009 12:24 AM CDT Tiffani Rosa MD LAB - CHEMISTRY ORDERABLES Performing Organization Address [facility] Co de Phone Number [facility] [address] [place] [address] * XR ABDOMEN 1 VW (06/28/2009 11:36 [...] Arterial 7.316(L) 7.35 - 7.45 pH Units [facility] pCO2 Arterial 36.9 35 - 45 mm Hg [facility] pO2 Arterial 219.7(H) 70 - 100 mm Hg [facility] HCO3 Arterial 18.4(L) 22 - 26 mmol/L [facility] Base Excess Arterial -7.0 -2.0 - 2.0 [facility] FI O2 Arterial or Capillary 100.0 % [facility] O2 Saturation Arterial 99.5 97 - 100 % [facility] Hemoglobin Arterial 12.4 12.0 - 16.0 gm% [facility] Oxyhemoglobin Arterial 98.8 94 - 100 % [facility] Carboxyhemoglobin Arterial 0.3 0 - 2 [facility] Methemoglobin Arterial 0.4 0.4 - 1.5 [facility] Vt 500 cc [facility] Mode a/c [facility] Respiratory Rate 14.0 [facility] PEEP 5 [facility] Site R. Radial [facility] Temp 37.0 oC [facility] ARTERIAL BLOOD SPECIMEN / Unknown 06/28/2009 8:24 PM CDT 06/28/2009 8:30 PM CDT Md Wade LAB - BLOOD GASES OR DERABLES [facility] [address] [place] [address] * (ABNORMAL) HGB HCT PANEL (03/19/2008 9:20 PM ENTERPRISE SALES PERSON) Hemoglobin 9.9(L) 12.0 - 16.0 gm/dl [facility] Hematocrit 29.4(L) 36.0 - 48.0 % [facility] BLOOD SPECIMEN / Unknown 03/19/2008 9:20 PM ENTERPRISE SALES PERSON Man Bolden MD LAB - HEMATOLOGY ORD MIGUELBLES [facility] * URINALYSIS DIPSTICK AUTO (03/19/2008 9:25 AM ENTERPRISE SALES PERSON) Pathologist [facility] Color UA YELLOW [facility] Character UA CLEAR [facility] Specific [place] UA 1.015 1.005 - 1.0300 [facility] pH UA 6.5 4.6 - 8.0 pH Units [facility] Leukocyte UA neg Negative /ul [facility] Nitrite UA neg Negative [facility] Protein UA neg Negative mg/dl [facility] Glucose UA norm Normal mg/dl [facility] Ketone UA 50 Negative mg/dl [facility] Urobilinogen UA norm Normal [place] Units [facility] Bilirubin UA neg Negative mg/dl [facility] Blood UA neg Negative /ul [facility] URINE / Unknown 03/19/2008 9 :25 AM ENTERPRISE SALES PERSON Man Bolden MD LAB - URINALYSIS ORD MARIA ELENA [facility] * CULTURE URINE (03/19/2008 9:25 AM ENTERPRISE SALES PERSON) Result [facility] Comment: Final CULTURE >10,000 colonies/ml Mixed gram positive jordon. MIXED CULTURE,NO FURTHER WORK-UP WILL BE PERFORMED RECOLLECT IF INDICATED URINE SPECIMEN COLLECTION, CATHETERIZED / Unknown 03/19/2008 9:25 AM ENTERPRISE SALES PERSON 03/19/2008 9:27 AM ENTERPRISE SALES PERSON Narrative Resulting Agency [place] [address] Man Bolden MD LAB - MICROBIOLOGY O RDERABLES Performing Organization Address [facility] Co de Phone Number [facility] * TYPE + SCREEN PANEL (03/19/2008 6:30 AM ENTERPRISE SALES PERSON) ABO Rh A Pos [facility] Antibody Screen Neg [facility] BLOOD SPECIMEN / Unknown 03/19/2008 6:30 AM ENTERPRISE SALES PERSON Man Bolden MD LAB - BLOOD BANK ORD ERABLES Performing Organization Address [facility]/ZIP Co de Phone Number [facility] Care Teams Hazardous Material Specialist Relationship Specialty Start Date End Date Antione Servin MD PCP - General Internal Medicine 07/08/17
--- OUTSIDE RECORDS SUMMARY | 2024-06-01 19:22 | XMS_ITS | Clinical Summary ---
Author Organization [facility] Address [address] [place] [address] Care Team Providers Care Hand Buffing Wheel Former Name Role Phone None, Provider MD Primary [...] on file Legal Sex Female 10:21 AM RAT CULTURIST Gender Identity Not on file Sexual Orientation Not on file Last Filed Vital Signs Vital Sign Reading Time Taken Comments Blood Pressure 134/83 02/21/2022 11:32 AM RAT CULTURIST Pulse 76 02/21/2022 11:32 AM RAT CULTURIST Temperature 36.3 C (97.3 F) 02/21/2022 11:32 AM RAT CULTURIST Respiratory Rate 18 02/21/2022 11:32 AM RAT CULTURIST Oxygen Saturation 100% 02/21/2022 11:32 AM RAT CULTURIST Inhaled Oxygen Concentration - - Weight 69.9 kg (154 lb) 02/21/2022 11:32 AM RAT CULTURIST Height 160 cm (5' 3 ) 02/21/2022 11:32 AM RAT CULTURIST Body Mass Index 27.28 02/21/2022 11:32 AM RAT CULTURIST Plan of Treatment Health Maintenance Due Date [...] HPV 2010 Mammogram Screening 2020 COVID-19 Vaccine ( - 2023-2 5 season) 2023 Influenza Adult (#1) 2024 [...] patient's age to complete this topic [place] [address] [place] [address] Care Teams Hand Buffing Wheel Former Relationship Specialty Start Date End Date None, Provider, PCP - General UNKNOWN PHYSICIAN SPECIALTY 02/21/22
--- OUTSIDE RECORDS SUMMARY | 2024-06-01 19:22 | XMS_ITS | Clinical Summary ---
Author Organization [facility] [employer] Address [address] [place] [address] Care Team Providers Care Exercise Scientist Name Role Phone Antione Servin MD Primary Care Provider Unavaila ble Source Comments [facility],non-owned Affiliates and Associated Physician Practices is amultiple site organization consisting of ambulatory clinics and hospital sitesin [place], [place], [place] and [place]. This disclosure is being madepursuant to the Care Everywhere program and may not contain all information available regarding this patient. Last updated 17.[facility] Allergies Active Allergy Reactions Criticality Noted Date [...] 12/23/1999 LIPID TESTING 06/29/2014 06/29/2009 COVID-19 VACCINE (1 - 2024-2 5 season) 2023 INFLUENZA VACCINE (#1) 2023 [...] mg/dl [facility] Triglycerides 101 <150 mg/dl [facility] HDL Cholesterol 41 >=40 mg/dl [facility] VLDL Calculated 20 <=30 mg/dl [facility] LDL Calculated 163(H) <100 mg/dl [facility] Cholesterol Risk Factor 5.46(H) <4.45 [facility] Comment Lipid [facility] Comment: Normal values based on [place] [employer] guidelines. LIPID PROFILE GUIDELINES Total [...] - GRUPO CORTNEY ORDERABLES Performing Organization Address City/State/[facility] Co de Phone Number [facility] [address] [place] [address] from Last 3 Months or Most Recently [...] 7:36 PM 07/05/2009 5:06 AM Care Teams Exercise Scientist Relationship Specialty Start Date End Date Antione Servin MD PCP - General Internal Medicine 07/08/17
--- OUTSIDE RECORDS SUMMARY | 2024-06-01 19:22 | XMS_ITS | Clinical Summary ---
Author Organization [facility] Address [address] [place] [id number] Care Team Providers Care Loan Supervisor Name Role Phone Unavailable Primary Care Provider Unavailabl e Encounters Date Type Department Care Team Description 05/26/2024 External Device Data [facility] Provider, Abstract 04/29/2024 External Device Data [facility] Provider, [...] CDT Impressions 09/13/2023 2:17 PM CDT IMPRESSION: Small focal asymmetry at the lower outer left breast 5.3 cm from the nipple seen only on the left CC projection. Targeted left breast ultrasound would be recommended. No mammographic evidence for malignancy of the right breast. OVERALL FINAL ASSESSMENT: BI-RADS CATEGORY 0: Incomplete, needs additional imaging evaluation.. [...] read in conjunction with computer aided detection. BREAST COMPOSITION: Heterogeneously dense, which limits the [...]
--- OUTSIDE RECORDS SUMMARY | 2024-06-01 19:23 | XMS_ITS | CONTINUITY OF CARE DOCUMENT ---
Author Name alva calle Address Unknown Organization [facility] Address [address] [place] [address] Phone [phone] Care Team Providers Care Automotive Tire Tester Name Role Phone Prateek WALTER, Rony Unavailable [phone] ALLISON CHAMBERLAIN MD Unavailable [phone] ALLISON CHAMBERLAIN MD Unavailable [phone] PROBLEMS Condition Status Date Provider Notes Deep Vein Thrombosis active ? Daysi arguello RN (History of) Pulmonary Embolism active ? Daysi Olivares RN (History of) ENCOUNTERS Date Type Provider Location Encounter Diag nosis - In-person encounter Office Visit Rony Chandra MD [facility] Office Deep Vein ThrombosisPulmonary Embolism [...] Payer name Policy type / Coverage type [facility] [employer] [facility] [place] [id number] ADVANCE DIRECTIVES Name Date DISCUSSED - NO [...]
== END 2024-06-01 19:25 | disposition home or self-care (01) ==
PROVIDERS: Emergency Provider Nurse Practitioner
DX: M54.42 Lumbago with sciatica, left side (principal)
CPT/HCPCS: 99213; G0463

== ENCOUNTER 2024-06-12 08:31 | Emergency (ER) | payer OTHER, SELFPAY ==
[2024-06-12] VITALS (45 sets, daily range): BP systolic 107–145; BP diastolic 39–104; PULSE 71–98; RESP 14–25; TEMP 36.8–37.1; O2SAT 93–100
--- NOTE | ~2024-06-12 | XR_ITS ---
EXAMINATION: XR chest 2V DATE: 06/12/2024 09:40 INDICATION: Chest pain TECHNIQUE: frontal and lateral views of the chest were obtained. COMPARISON: None FINDINGS: The lungs are clear with no focal airspace opacities, pulmonary edema, pleural effusion or pneumothor ax. The cardiomediastinal silhouette is normal. Bilateral breast implants. IMPRESSION: 1. No acute cardiopulmonary disease. Reviewed, dictated and finalized at location B. K PATCHER
--- NOTE | ~2024-06-12 | CT_ITS ---
EXAMINATION: CT brain wo con DATE: 06/12/2024 09:35 INDICATION: Headache. Vision change. TECHNIQUE: Computed tomography (CT) of the head was performed without intravenous contrast. The mA wa s adjusted according to patient size. Iterative reconstruction technique was employed. The dose-lengt h product was 605.33 mGy-cm. COMPARISON: None FINDINGS: There is no intracranial hemorrhage, acute infarction, or abnormal intracranial mass lesion . The ventricles are normal in size. The orbits are normal. The paranasal sinuses are clear. The mast oid air cells are normal. IMPRESSION: 1. Normal brain. Reviewed, dictated and finalized at location A. CHECKER IMPRESSION: 1. Normal brain.
--- NOTE | ~2024-06-12 | CT_ITS ---
EXAMINATION: CTA chest PE protocol DATE: 06/12/2024 10:57 INDICATION: Chest pain. Shortness of breath. TECHNIQUE: Computed tomography angiography (CTA) of the chest was performed with 100 mL Omnipaque-350 intravenous contrast timed to evaluate the pulmonary arteries. Coronal maximum intensity projection 3D-reconstructions were created by the technologist. Automated exposure control and iterative reconst ruction technique were employed. The dose-length product was 201.75 mGy-cm. COMPARISON: Chest 2 views 06/12/2024 FINDINGS: The lungs demonstrate minimal atelectasis on the left. No pleural effusion. There is right ventricular enlargement of the heart. No pericardial effusion. There are extensive acute pulmonary em boli involving all lobes including a saddle embolus in main pulmonary artery. There are gallstones in the gallbladder, which is normal in size. There are bilateral breast implants. There is mild thoraci c spondylosis. IMPRESSION: 1. Extensive acute pulmonary emboli with right heart strain. I called this result to Cassidy Ayon. Reviewed, dictated and finalized at location A. ER AIRCRAFT IMPRESSION: 1. Extensive acute pulmonary emboli with right heart strain. I called this resu lt to Cassidy Ayon.
--- OUTSIDE RECORDS SUMMARY | 2024-06-12 08:43 | XMS_ITS | Clinical Summary ---
Author Organization [facility] Address [address] [place] [id number] Care Team Providers Care Fuel Efficient Aircraft Designer Name Role Phone Unavailable Primary Care Provider Unavailabl e Encounters Date Type Department Care Team Description 06/09/2024 External Device Data [facility] ABSTRACTION Provider, Abstract 05/26/2024 External Device Data [facility] ABSTRACTION Provider, [...] age to complete this topic PNEUMOCOCCAL VACCINE 0-49 YEARS Aged Out No longer eligible based [...]
--- OUTSIDE RECORDS SUMMARY | 2024-06-12 08:43 | XMS_ITS | Patient Health Summary ---
Author Organization [facility] Asteel Address [address] [place] [address] Care Team Providers Care Bindery Library Technical Assistant Name Role Phone Antione Servin MD Primary Care Provider Unavaila ble Note from [facility],non-owned Affiliates and Associated Physician Practices is amultiple site organization consisting of ambulatory clinics and hospital sitesin [place], [place], [place] and [place]. This disclosure is being madepursuant to the Care Everywhere program and may not contain all information available regarding this patient. Last updated 17.[facility] Allergies * Amoxicillin(Shortness of Breath) -High Criticality [...] HCT PANEL(Performed 03/19/2008) Performed for Normal Delivery ([facility]) * URINALYSIS NO MICROSCOPIC NO CULTURE(Performed 03/19/2008) Performed for Normal Delivery ([facility]) * CULTURE URINE(Performed 03/19/2008) Performed for Normal Delivery ([facility]) * TYPE + SCREEN PANEL(Performed 03/19/2008) Performed for Normal Delivery ([facility]) * CBC W AUTO DIFFERENTIAL(Performed 03/19/2008) Performed for Normal Delivery ([facility]) Results * CARDIAC EKG ORDER (07/12/2017 7:33 [...] without contrast HISTORY: Altered mental status TECHNIQUE: Beeh-ny-gzwlmy magnetic resonance venography of the head with MIP reconstructions FINDINGS: The right transverse sinus is dominant. No sinus thrombosis or cortical vein thrombosis is seen. Procedure Note Nabor Bray MD - 07/09/2017 MR of the head without contrast HISTORY: Altered mental status TECHNIQUE: Xdch-ky-erenkm magnetic resonance venography of the head with [...] - 416 x10E9/L 07/09/2017 4:58 AM CDT [facility] RDW-CV 13.2 12.1 - 14.9 % 07/09/2017 4:58 AM CDT [facility] MPV 9.9 9.4 - 12.9 fl 07/09/2017 4:58 AM CDT [facility] Neutrophils % 53.2 44.0 - 73.0 % 07/09/2017 4:58 AM CDT [facility] Lymphocytes % 35.9 20.0 - 43.0 % 07/09/2017 4:58 AM CDT [facility] Monocytes % 7.6 5.0 - 13.0 % 07/09/2017 4:58 AM CDT [facility] Eosinophils % 2.7 0.0 - 6.0 % 07/09/2017 4:58 AM CDT [facility] Basophils % 0.4 0.0 - 2.0 % 07/09/2017 4:58 AM CDT [facility] Immature Granulocytes 0.2 0 - 1 % 07/09/2017 4:58 AM CDT [facility] Neutrophil Absolute 2.71 2.01 - 7.14 x10E9/L 07/09/2017 4:58 AM CDT [facility] Lymphocytes Absolute 1.83 1.07 - 3.94 x10E9/L 07/09/2017 4:58 AM CDT [facility] Monocytes Absolute 0.39 0.26 - 1.07 x10E9/L 07/09/2017 4:58 AM CDT [facility] Eosinophils Absolute 0.14 0 - 0.47 x10E9/L 07/09/2017 4:58 AM CDT [facility] Basophils Absolute 0.02 0 - 0.08 x10E9/L 07/09/2017 4:58 AM CDT [facility] Immature Granulocytes Absolute 0.01 0.00 - 0.06 x10E9/L 07/09/2017 4:58 AM CDT [facility] nRBC Auto 0 /100 WBC 07/09/2017 4:58 AM CDT [facility] Blood BLOOD SPECIMEN / Unknown Venipuncture / Unknown 07/09/2017 3:57 AM CDT 07/09/2017 4:47 AM CDT Americo Bertrand MD LAB - HEMATOLOGY ORD ERABLES Performing Organization Address City/[facility]/ZIP Co de Phone Number [facility] [address] [place] [address] * BASIC METABOLIC PANEL (CALCIUM TOTAL) (07/09/2017 3:57 AM CDT) Only the most recent of5 resultswithin the time period is included. [facility] Glucose 81 74 - 106 mg/dL 07/09/2017 5:17 AM CDT [facility] Sodium 140 136 - 145 mmol/L 07/09/2017 5:17 AM CDT [facility] Potassium 3.7 3.5 - 5.1 mmol/L 07/09/2017 5:17 AM CDT [facility] Chloride 107 98 - 107 mmol/L 07/09/2017 5:17 AM CDT [facility] CO2 22 22 - 31 mmol/L 07/09/2017 5:17 AM CDT [facility] Calcium 9.3 8.5 - 10.1 mg/dL 07/09/2017 5:17 AM CDT [facility] Anion Gap 11 8 - 16 mmol/L 07/09/2017 5:17 AM CDT [facility] BUN 9 7 - 21 mg/dL 07/09/2017 5:17 AM CDT [facility] Creatinine 0.97 0.50 - 1.30 mg/dL 07/09/2017 5:17 AM CDT [facility] eGFR by MDRD >60 >60 mL/min/1.7 3m2 07/09/2017 5:17 AM CDT [facility] eGFR by MDRD >60 >60 mL/min/1.7 3m2 07/09/2017 5:17 AM CDT [facility] Blood BLOOD SPECIMEN / Unknown Venipuncture / Unknown 07/09/2017 3:57 AM CDT 07/09/2017 4:47 AM CDT Americo Bertrand MD LAB - CHEMISTRY ORDE RABCARLA [facility] [address] [place] [address] * TROPONIN I (07/08/2017 5:58 PM CDT) Only the most recent of11 resultswithin the time period is included. Troponin I <0.015 0.000 - 0.049 ng/mL 07/08/2017 6:18 PM CDT [facility] Blood BLOOD SPECIMEN / Unknown Venipuncture / Unknown 07/08/2017 5:58 PM CDT 07/08/2017 6:00 PM CDT Narrative [facility] - 07/08/2017 6:18 PM CDT [...] Americo Bertrand MD LAB - CHEMISTRY WILLIAM [facility] Organization Address City/State/[facility] Co de Phone Number [facility] [address] [place] [address] * XR CHEST 1VW PORTABLE (07/08/2017 12:04 [...] basilar artery, and branch vessels of the [place] are widely patent without evidence [...] basilar artery, and branch vessels of the [place] are widely patent without evidence [...] POINT OF CARE ORDERABLES [facility] [id number] [place] [address], [facility] [phone] * CREATININE BLOOD - POINT OF CARE (IP) (07/08/2017 11:25 AM CDT) Creatinine POCT 0.96 0.7 - 1.2 mg/dL [facility] QC Verified Yes Yes [facility] POC T TESTING Blood BLOOD SPECIMEN / Unknown 07/08/2017 11:25 AM CDT Americo Bertrand MD LAB - POINT OF CARE ORDERABLES Performing Organization Address [facility] Co de Phone Number [facility] [id number] [place] [address], [facility] [phone] * NT-PRO BNP (07/08/2017 11:23 AM CDT) [...] - CHEMISTRY ORDE TRISTAN Performing Organization Address [facility] Co de Phone Number [facility] [address] [place] [address] * PT PTT PANEL (07/08/2017 11:23 AM CDT) Only the most recent of5 resultswithin the time period is included. PT 11.0 9.5 - 11.6 sec 07/08/2017 11:43 AM CDT [facility] INR 1.0 0.9 - 1.1 07/08/2017 11:43 AM CDT [facility] PTT 25.6 21.0 - 32.0 sec 07/08/2017 11:43 AM CDT [facility] Blood BLOOD SPECIMEN / Unknown Venipuncture / Unknown 07/08/2017 11:23 AM CDT 07/08/2017 11:28 AM CDT Narrative [facility] - 07/08/2017 11:43 AM CDT Conventional Warfarin Anticoagulant Therapy: INR Reference Range: 2.0-3.0 Intensive Warfarin Anticoagulant Therapy: INR Reference Range: 2.5-3.5 Heparin Therapeutic Range for PTT: 47.7 - 68.6 seconds. Americo Bertrand MD LAB - COAGULATION OR DERABLES Performing Organization Address [facility] Co de Phone Number [facility] [id number] [place] [address] * (ABNORMAL) COMPREHENSIVE METABOLIC PANEL (07/08/2017 11:23 AM CDT) Only the most recent of6 resultswithin the time period is included. [facility] Signature Glucose 86 74 - 106 mg/dL 07/08/2017 11:48 AM CDT [facility] Sodium 139 136 - 145 mmol/L 07/08/2017 11:48 AM CDT [facility] Potassium 3.9 3.5 - 5.1 mmol/L 07/08/2017 11:48 AM CDT [facility] Chloride 108(H) 98 - 107 mmol/L 07/08/2017 11:48 AM CDT [facility] CO2 24 22 - 31 mmol/L 07/08/2017 11:48 AM CDT [facility] Calcium 8.5 8.5 - 10.1 mg/dL 07/08/2017 11:48 AM CDT [facility] Anion Gap 7(L) 8 - 16 mmol/L 07/08/2017 11:48 AM T [facility] BUN 6(L) 7 - 21 mg/dL 07/08/2017 11:48 AM CDT [facility] Creatinine 1.10 0.50 - 1.30 mg/dL 07/08/2017 11:48 AM CDT [facility] Alkaline Phosphatase 88 38 - 126 U/L 07/08/2017 11:48 AM CDT [facility] ALT 20 13 - 61 U/L 07/08/2017 11:48 AM CDT [facility] AST 15 5 - 40 U/L 07/08/2017 11:48 AM CDT [facility] Protein Total 7.6 6.4 - 8.2 gm/dL 07/08/2017 11:48 AM CDT [facility] Albumin 3.7 3.4 - 5.0 gm/dL 07/08/2017 11:48 AM CDT [facility] Bilirubin Total 0.9 0.2 - 1.0 mg/dL 07/08/2017 11:48 AM CDT [facility] eGFR by MDRD 56(L) >60 mL/min/1.7 3m2 07/08/2017 11:48 AM CDT [facility] eGFR by MDRD >60 >60 mL/min/1.7 3m2 07/08/2017 11:48 AM T [facility] Blood BLOOD SPECIMEN / Unknown Venipuncture / Unknown 07/08/2017 11:23 AM CDT 07/08/2017 11:28 AM CDT Americo Bertrand MD LAB - CHEMISTRY WILLIAM HUDSON [facility] [address] [place] [address] * EKG 12-LEAD (07/08/2017 11:18 AM CDT) Only the most recent of5 resultswithin the time period is included. Ventricular Rate 89 BPM [facility] Atrial Rate 89 BPM [facility] P-R Interval 134 ms [facility] QRS Duration ms 80 ms [facility] Q-T Interval ms 364 ms [facility] QTC Calculation (Bezet) 442 ms [facility] M[facility] Calculated P [place] 25 degrees [facility] M[facility] Calculated R [place] 40 degrees [facility] M[facility] Calculated T [place] 23 degrees [facility] Interpretation EKG Normal sinus rhythm Normal ECG Confirmed by BLANCHE MORENO MD ([id number]) on 07/08/2017 3:47:49 PM [facility] MUSE 07/08/2017 11:1 8 AM CDT 07/08/2017 3:47 PM CDT Americo Bertrand MD ECG ORDERABLES Performing Organization Address [facility] Co de Phone Number [facility] * CT BRAIN STROKE PROTOCOL (07/08/2017 [...] - 106 mg/dL 07/09/2017 9:21 AM CDT [facility] Specimen Type UNKNOWN SAMPLE TYPE 07/09/2017 9:21 AM CDT [facility] Blood BLOOD SPECIMEN / Unknown 07/08/2017 11:11 AM CDT 07/09/2017 9:21 AM CDT Americo Bertrand MD LAB - POINT OF CARE ORDERABLES Performing Organization Address City/State/[facility] Co de Phone Number [facility] [address] [place] [phone] * CARDIAC PROCEDURE ORDER (06/20/2017 3:03 AM CDT) Narrative 06/20/2017 3:03 AM CDT Ordered by an unspecified provider. Scanned Document CARDIAC SERVICES ORD ERABLES * (ABNORMAL) PTT (06/14/2017 4:42 PM [facility]) Only the most recent of3 resultswithin the time period is included. PTT 55.5(H) 21.0 - 32.0 sec 06/14/2017 5:07 PM [facility] Blood BLOOD SPECIMEN / Unknown Venipuncture / Unknown 06/14/2017 4:42 PM [facility] 06/14/2017 4:51 PM [facility] Narrative [facility] - 06/14/2017 5:07 PM [facility] Heparin Therapeutic Range for PTT: 47.7 - 68.6 seconds. Barbara Wood MD LAB - COAGULATION OR DERABLES [facility] [address] [place] [address] * ECHOCARDIOGRAM 2D WITH DOPPLER (06/14/2017 9:23 AM [facility]) Only the most recent of2 resultswithin the time period is included. 06/14/2017 9:23 AM [facility] Narrative [facility] - 06/15/2017 11:23 AM [facility] [address] [address] Transthoracic Echocardiogram 2D, M-mode, Doppler, and Color Doppler Patient: RADHA MCKEON MR number: [id number] Height: 63 in Weight: 175.6 lb BSA: 1.83 m Study date: 14-Jun-2017 : 1980 Age: 36 years Gender: Female Race: Black Allergies: PENICILLINS, ERYTHROMYCIN, PEANUT-DERIVED Reading Physician: Tori Chandra MD Referring Physician: Tori Chandra MD SALESPERSON FLORIST SUPPLIES: Harmony Lopez ARTHUR [facility] Group: [facility] Summary: - History: - [...] Procedure: The study was performed in the [facility]. This was a routine study. Room 306 [...] MV A Cody: 0.6 m/s MV Dec [place]: 2.2 m/s2 MV DecT: 212.2 ms MV E Cody: 0.5 m/s MV E/A Ratio: 0.8 Septal e': 0.1 m/s Prepared and signed by Tori Chandra MD Signed 15-Jun-2017 11:23:38 Procedure Note Unknown, Provider, - 06/15/[address] [address] Transthoracic Echocardiogram 2D, M-mode, Doppler, and Color Doppler Patient: RADHA MCKEON MR number: [id number] Height: 63 in Weight: 175.6 lb BSA: 1.83 m Study date: 14-Jun-2017 : 1980 Age: 36 years Gender: Female Race: Black Allergies: PENICILLINS, ERYTHROMYCIN, PEANUT-DERIVED Reading Physician: Tori Chandra MD Referring Physician: Tori Chandra MD SALESPERSON FLORIST SUPPLIES: Harmony Lopez ARTHUR Cardiology Group: [facility] Summary: - History: - [...] Procedure: The study was performed in the [facility]. This was a routine study. Room 306 [...] MV A Cody: 0.6 m/s MV Dec [place]: 2.2 m/s2 MV DecT: 212.2 ms MV E Cody: 0.5 m/s MV E/A Ratio: 0.8 Septal e': 0.1 m/s Prepared and signed by Tori Chandra MD Signed 15-Jun-2017 11:23:38 Shannan Sorto PA-C ECHO ORDERABLES [facility] * T4 FREE DIRECT REFLEXED (06/14/2017 2:54 AM [facility]) T4 Free 1.17 0.65 - 1.34 ng/dL 06/14/2017 3:50 AM [facility] Blood BLOOD SPECIMEN / Unknown Venipuncture / Unknown 06/14/2017 2:54 AM [facility] 06/14/2017 3:06 AM [facility] Shannan Elaine Macario RECINOS LAB - CHEMISTRY ORDStephany HUDSON Performing Organization Address [facility] Co de Phone Number [facility] [address] [place] [address] * (ABNORMAL) TSH REFLEX FREE T4 (06/14/2017 2:54 AM [facility]) TSH 8.91(H) 0.358 - 3.740 ulU/mL 06/14/2017 3:38 AM [facility] Blood BLOOD SPECIMEN / Unknown Venipuncture / Unknown 06/14/2017 2:54 AM [facility] 06/14/2017 3:06 AM [facility] Shannan Henry Macario RECINOS LAB - CHEMISTRY ORDStephany HUDSON Performing Organization Address [facility] Co de Phone Number [facility] [id number] [place] [address] * CULTURE VRE (06/13/2017 11:38 PM [facility]) Only the most recent of2 resultswithin the time period is included. Culture Negative for vancomycin-resi stant Enterococci (VRE) JASVIR 06/15/2017 6:12 AM [facility] Stool RECTAL SWAB / Unknown Collection / Unknown 06/13/2017 11:38 PM [facility] 06/13/2017 11:47 PM [facility] Mellissa Tyson MD LAB - MICROBIOLOGY O RDERABLES Performing Organization Address [facility] Co de Phone Number [facility] [address] [place] [address], [facility] [phone] * CULTURE MRSA (06/13/2017 11:38 PM [facility]) Only the most recent of2 resultswithin the time period is included. Culture Negative for methicillin-resist ant Staphylococcus aureus (MRSA) JASVIR 06/15/2017 6:12 AM [facility] Microbiology SPECIMEN FROM NASAL FOSSAE / Unknown Collection / Unknown 06/13/2017 11:38 PM [facility] 06/13/2017 11:47 PM [facility] Mellissa Tyson MD LAB - MICROBIOLOGY O JF Performing Organization Address [facility] Co de Phone Number [facility] [address] [place] [address], [facility] [phone] * ACT - POINT OF CARE (06/13/2017 10:41 PM [facility]) ACT POCT 178 125 - 187 Seconds [facility] QC Verified Yes Yes [facility] POC T TESTING Blood BLOOD SPECIMEN / Unknown 06/13/2017 10:41 PM [facility] Tori Chandra MD LAB - POINT OF CARE ORDERABLES Performing Organization Address [facility] de Phone Number [facility] [address] [place] [address], [facility] [phone] * ED CRITICAL CARE (06/13/2017 5:00 PM [facility]) Narrative Radha Monahan MD - 06/13/2017 5:00 PM [facility] Radha Monahan MD 06/13/2017 5:00 PM Critical [...] ORDERABLES * MAGNESIUM BLOOD (06/13/2017 1:58 PM [facility]) Magnesium 2.2 1.6 - 2.6 mg/dL 06/13/2017 2:24 PM [facility] Blood BLOOD SPECIMEN / Unknown Venipuncture / Unknown 06/13/2017 1:58 PM [facility] 06/13/2017 2:00 PM [facility] Radha Monahan MD LAB - CHEMISTRY WILLIAM HUDSON Performing Organization Address [facility]/ZIP Co de Phone Number [facility] [address] [place] [address] * HCG BLOOD QUALITATIVE (06/13/2017 1:58 PM [facility]) HCG Qual Serum Negative Negative 06/13/2017 2:14 PM [facility] Blood BLOOD SPECIMEN / Unknown Venipuncture / Unknown 06/13/2017 1:58 PM [facility] 06/13/2017 2:00 PM [facility] Radha Monahan MD LAB - CHEMISTRY WILLIAM elastic.ioCARLA Performing Organization Address City/[facility]/ZIP Co de Phone Number [facility] [phone] [place] [phone] * CARDIAC CATH PROCEDURE (06/13/2017 12:00 PM [facility]) 06/13/2017 12:0 0 PM [facility] Narrative Procedure Note Tori Chandra MD - 06/14/2017 1:[address] [facility] CARDIAC CATHETERIZATION PATIENT: RADHA MCKEON MR#: [id number] ADMIT DATE: 06/13/2017 CSN: [id number] PROCEDURE DATE: 06/13/2017 :1980 PHYSICIAN: Tori Chandra MD ROOM: [place] [address] REFERRING PHYSICIAN: RADHA MONAHAN Patient of Dr. Shannan Sorto. INDICATION FOR PROCEDURE: Bilateral saddle pulmonary embolism. PROCEDURE PERFORMED: Pulmonary artery angiography and right heart catheterization and pulmonary artery thrombectomy in the right mainpulmonary artery. TECHNIQUE: After informed consent, the patient was brought to the cathlab. Right femoral vein was anesthestized with 2% lidocaine. The rightfemoral vein was punctured and cannulated with 7-Luxembourgish sheath. A JR4 catheterwas advanced into the [...] treated with SolentOmni Angiojet thrombectomy over a Handley Advantage wire with adequate results.I did distal [...] in participation. TORI CHANDRA MD SD/MODL #: [id number] cc: Tori Chandra MD Primary Care Physician HARMAN Hamilton MEDICAL/SURGICAL CARDIAC CATHETERIZATION - DP Tori Chandra MD CARDIAC SERVICES ORD ERABLES [facility]QU[facility] * VAS RIGHT VENOUS DUPLEX LE (06/12/2017 11:26 AM [facility]) Anatomical Region Laterality Modality Ultrasound 06/12/2017 11:0 1 AM [facility] Narrative Procedure Note Grey Villela MD - 06/12/2017 [place] [address] Lower Extremity Venous Ultrasound Report Pat.Name: RADHA MCKEON.ID: [id number] .Date: 06/12/2017 Exam Time: 11:01:00 AM Study Type:LE Venous Age: 9 1980,36Y Sex: FEMALE Sonogrphr: Milton Michele RVT Pat. Stat.:Outpatient Room: ED-10 Reason for Study:R79.89 Elevated D-dimer, M79.661 Tenderness of right calf Procedures:Lower Extremity Venous - Right Visit ID: [id number] SUMMARY: Acute DVT in right leg. FINDINGS: [...] ERABLES * (ABNORMAL) D-DIMER (06/12/2017 9:16 AM [facility]) D-Dimer 8.60(H) 0.17 - 0.5 mg/L FEU 06/12/2017 9:41 AM [facility] Blood BLOOD SPECIMEN / Unknown Venipuncture / Unknown 06/12/2017 9:16 AM [facility] 06/12/2017 9:20 AM [facility] Narrative [facility] - 06/12/2017 9:41 AM [facility] The Innovance D-Dimer assay is intended for [...] - COAGULATIO N ORDERABLES Performing Organization Address [facility] Co de Phone Number [facility] [phone] [place] [address] * PT-INR (06/12/2017 9:16 AM [facility]) PT 9.8 9.5 - 11.6 sec 06/12/2017 9:41 AM [facility] INR 1.0 0.9 - 1.1 06/12/2017 9:41 AM [facility] Blood BLOOD SPECIMEN / Unknown Venipuncture / Unknown 06/12/2017 9:16 AM [facility] 06/12/2017 9:20 AM [facility] Narrative [facility] - 06/12/2017 9:41 AM [facility] Conventional Warfarin Anticoagulant Therapy: INR Reference Range: 2.0-3.0 Intensive Warfarin Anticoagulant Therapy: INR Reference Range: 2.5-3.5 Paloma Toledo MD LAB - COAGULATIO N ORDERABLES Performing Organization Address [facility] de Phone Number [facility] [address] [place] [address] * HCG BETA BLOOD QUANTITATIVE (06/12/2017 9:16 AM [facility]) hCG Quantitative <1 mIU/mL 06/13/19 11:58 AM [facility] Blood BLOOD SPECIMEN / Unknown Venipuncture / Unknown 06/12/2017 9:16 AM [facility] 06/12/2017 9:20 AM [facility] Narrative [facility] - 06/12/2017 11:58 AM [facility] hCG Reference Range, mIU/mL: Males 0-2.0 Non [...] LAB - CHEMISTRY ORDERABLES Performing Organization Address [facility] Co de Phone Number [facility] [address] [place] [address] * CK BLOOD (06/12/2017 9:16 AM [facility]) CK 46 35 - 232 U/L 06/12/2017 9:40 AM [facility] Blood BLOOD SPECIMEN / Unknown Venipuncture / Unknown 06/12/2017 9:16 AM [facility] 06/12/2017 9:20 AM [facility] Paloma Toledo MD LAB - CHEMISTRY ORDERABLES Performing Organization Address [facility] de Phone Number [facility] [address] [place] [address] * CT HEAD - NON CONTRAST (06/06/2010 1:10 AM [facility]) Anatomical Region Laterality Modality Head Computed Tomogra phy 06/06/2010 8:47 AM [facility] Impressions 06/06/2010 8:47 AM [facility] Normal unenhanced CT brain. Preliminary report was provided by [facility]. Narrative 06/06/2010 8:[address] Brain Noncontrast Indication: Fall, head injury [...] CT brain. Preliminary report was provided by [facility]. Teresa Atlamirano MD CT ORDERABLES * XR FOOT 3+ VW LEFT (06/06/2010 12:16 AM [facility]) Anatomical Region Laterality Modality Ankle / Foot Radiographic Cyndie ging 06/06/2010 8:54 AM [facility] Impressions 06/06/2010 11:02 AM [facility] No fracture or dislocation identified. Please see above. Narrative 06/06/2010 11:02 AM [facility] EXAMINATION: Left foot 3 views. INDICATION: Left [...] ANKLE 3+ VW LEFT (06/06/2010 12:15 AM [facility]) Anatomical Region Laterality Modality Lower Extremity Radiographic Cyndie ging 06/06/2010 8:56 AM [facility] Impressions 06/06/2010 8:56 AM [facility] No fracture or dislocation identified. Please see above. Narrative 06/06/2010 8:56 AM [facility] Examination: Left ankle 3 views Indication: Left [...] POINT OF CARE ORDERABLES [facility] [id number] [place] [address] * (ABNORMAL) CK + CKMB PANEL (07/03/2009 11:45 AM CDT) Only the most recent of5 resultswithin the time period is included. CK 454(H) 30 - 135 U/L [facility] CK-MB 3.0 0.0 - 5.0 ng/ml [facility] BLOOD SPECIMEN / Unknown 07/03/2009 11:45 AM CDT 07/03/2009 11:54 AM CDT Rita Bocanegra APRN-RELAY REPAIRER LAB - CHEMISTRY ORDERABLES Performing Organization Address City/[facility] Co de Phone Number [facility] [address] [place] [address] * CULTURE BLOOD (07/02/2009 1:00 PM CDT) Only the most recent of5 resultswithin the time period is included. Report [facility] Comment:Final - CULTURE No Growth PERIPHERAL BLOOD / Unknown 07/02/2009 1:00 PM CDT 07/02/2009 1:34 PM CDT Adam Mcallister MD LAB - MICROBIOLOGY O RDERABLES Performing Organization Address [facility] de Phone Number [facility] [address] [place] [address] * XR CHEST PA AND LATERAL (ROUTINE) [...] Arterial 7.467(H) 7.35 - 7.45 pH Units [facility] pCO2 Arterial 34.4(L) 35 - 45 mm Hg [facility] pO2 Arterial 155.5(H) 70 - 100 mm Hg [facility] HCO3 Arterial 24.3 22 - 26 mmol/L [facility] Base Excess Arterial 1.2 -2.0 - 2.0 [facility] O2 Saturation Arterial 99.1 97 - 100 % [facility] FI O2 Arterial or Capillary 40.0 % [facility] Temp 37.0 oC [facility] Site R. Brachial [facility] ARTERIAL BLOOD SPECIMEN / Unknown 07/01/2009 9:41 AM CDT 07/01/2009 9:45 AM CDT Kostas Ramos MD LAB - BLOOD GASES OR DERABLES Performing Organization Address City/[facility]/ZIP Co de Phone Number [facility] [address] [place] [phone] * (ABNORMAL) POTASSIUM BLOOD (06/29/2009 3:30 PM CDT) Pathologist [facility] [place] Potassium 3.4(L) 3.6 - 5.0 mmol/L [facility] BLOOD SPECIMEN / Unknown 06/29/2009 3:30 PM CDT 06/29/2009 3:48 PM CDT Nabor Carmona MD LAB - CHEMISTRY WILLIAM HUDSON Performing Organization Address City/[facility]/ZIP Co de Phone Number [facility] [address] [place] [address] * BENZODIAZEPINE URINE CONFIRMATION (06/29/2009 6:40 AM CDT) Pathologist [facility] [place] Benzodiazepines Confirm Urine Negative by GC/MS with a cutoff of 300 ng/mL. ng/ml [facility] URINE / Unknown 06/29/2009 6 :40 AM CDT 06/29/2009 12:43 PM CDT Narrative Resulting Agency Comment Performed By [address] [place] [address] Javad Quintanilla MD LAB - URINE CHEMISTR Y ORDERABLES [facility] [address] [place] [address] * DRUG SCREEN TOX URINE PANEL (06/29/2009 6:40 AM CDT) [facility] Amphetamines Screen Urine Not Detected 1000 ng/mL Cutoff ng/ml [facility] Barbiturates Screen Urine Not Detected 300 ng/mL Cutoff ng/ml [facility] Benzodiazepines Screen Urine Presumptive Positive 300 ng/mL Cutoff ng/ml [facility] Cannabinoids Screen Urine Not Detected 20 ng/mL Cutoff ng/ml [facility] Cocaine Screen Urine Not Detected 300 ng/mL Cutoff ng/ml [facility] Methadone Screen Urine Not Detected 300 ng/mL Cutoff ng/ml [facility] Methaqualone Screen Urine Not Detected 300 ng/mL Cutoff ng/ml [facility] Opiate Screen Urine Not Detected 300 ng/mL Cutoff ng/ml [facility] Phencyclidine Screen Urine Not Detected 25 ng/mL Cutoff ng/ml [facility] Propoxyphene Screen Urine Not Detected 300 ng/mL Cutoff ng/ml [facility] Oxycodone Screen Urine Not Detected 100 ng/mL Cutoff ng/ml [facility] Ecstasy Screen Urine Not Detected 500 ng/mL Cutoff ng/ml [facility] Creatinine Urine Tox 44.7 mg/dl [facility] GC/MS Screen Urine Positive for Lidocaine [facility] Comment GC/MS Screen [facility] Comment: The GC/MS screen is a [...] comp, police investigations, occupational issues, child custody. [facility] URINE / Unknown 06/29/2009 6 :40 AM CDT 06/29/2009 6:48 AM CDT Narrative Resulting Agency Comment Performed By [address] [place] [address] Tiffani Rosa MD LAB - URINE CHEM ISTRY ORDERABLES [facility] [address] [place] [address] * CHEST ONE VIEW (06/29/2009 5:02 AM [...] per preliminary report, findings were discussed by [facility] physician with TELLO Ansari. Narrative 06/29/2009 8:37 [...] per preliminary report, findings were discussed by [facility] physician with TELLO Ansari. Alphonso Horton MD CT ORDERA BLES * (ABNORMAL) B-TYPE NATRIURETIC PEPTIDE (06/29/2009 12:10 AM CDT) BNP 123.9(H) 0.0 - 99.99 pg/ml [facility] Interpretation BNP [facility] Comment: A cutoff of 100 pg/ml [...] AM CDT 06/29/2009 8:40 AM CDT Narrative [facility] - 06/29/2009 9:42 AM CDT gwen Brenda Grullon MD LAB - CHEMISTRY ORDERABLES Performing Organization Address [facility] Co de Phone Number [facility] [address] [place] [address] * (ABNORMAL) LDH BLOOD (06/29/2009 12:10 AM CDT) LDH 633(H) 313 - 618 U/L [facility] BLOOD SPECIMEN / Unknown 06/29/2009 12:10 AM CDT 06/29/2009 12:26 AM CDT Alphonso Horton MD LAB - GRUPO CORTNEY ORDERABLES Performing Organization Address [facility] de Phone Number [facility] [address] [place] [address] * HAPTOGLOBIN (06/29/2009 12:10 AM CDT) Haptoglobin 64.9 40 - 240 mg/dl [facility] BLOOD SPECIMEN / Unknown 06/29/2009 12:10 AM CDT 06/29/2009 12:26 AM CDT Alphonso Horton MD LAB - GRUPO CORTNEY ORDERABLES Performing Organization Address [facility] de Phone Number [facility] [address] [place] [address] * (ABNORMAL) LIPID PROFILE (06/29/2009 12:10 AM CDT) Cholesterol 224(H) <200 mg/dl [facility] Triglycerides 101 <150 mg/dl [facility] HDL Cholesterol 41 >=40 mg/dl [facility] VLDL Calculated 20 <=30 mg/dl [facility] LDL Calculated 163(H) <100 mg/dl [facility] Cholesterol Risk Factor 5.46(H) <4.45 [facility] Comment Lipid [facility] Comment: Normal values based on [place] [employer] guidelines. LIPID PROFILE GUIDELINES Total [...] Horton MD LAB - GRUPO CORTNEY ORDERABLES [facility] [address] [place] [address] * URINALYSIS ROUTINE AUTO (06/29/2009 12:05 AM CDT) Source Catheter [facility] Color UA Light Yellow [facility] Character UA Clear [facility] Glucose UA NEGATIVE NEGATIVE mg/dl [facility] Bilirubin UA NEGATIVE NEGATIVE [facility] Ketone UA NEGATIVE NEGATIVE mg/dl [facility] Specific Bent UA <=1.005 1.003 - 1.030 [facility] Blood UA NEGATIVE NEGATIVE [facility] pH UA 5.5 5.0 - 9.0 [facility] Protein UA NEGATIVE NEGATIVE-TR SHADI mg/dl [facility] Urobilinogen UA 0.2 0.2 - 1.0 Delmer Units/dl [facility] Nitrite UA NEGATIVE NEGATIVE [facility] Leukocyte UA NEGATIVE NEGATIVE [facility] URINE SPECIMEN COLLECTION, CATHETERIZED / Unknown 06/29/2009 12:05 AM CDT 06/29/2009 1:15 AM CDT Javad Quintanilla MD LAB - URINALYSIS ORD ERABLES Performing Organization Address [facility] de Phone Number [facility] [address] [place] [address] * HCG URINE QUALITATIVE (06/29/2009 12:05 AM CDT) HCG Qual Urine Negative SEE BELOW [facility] Comment: Normal, Negative Pos, Sensitivity 25 MIU/ML Comment hCG Urine [facility] Comment: For optimal results, it is best to test the first urine voided in the morning because it contains the greatest concentration of hCG. URINE / Unknown 06/29/2009 1 2:05 AM CDT 06/29/2009 1:16 AM CDT Alphonso Horton MD LAB - URI NALYSIS ORDERABLES Performing Organization Address [facility] de Phone Number [facility] [address] [place] [address] * CULTURE SPUTUM (06/29/2009 12:00 AM CDT) Report [facility] Comment: Final - GRAM STAIN <10 Epithelial cells per low power field <10 WBC's per low power field Light rbc's Heavy debris CULTURE Light usual aerobic jordon SPUTUM / Unknown 06/29/2009 06/30/19 10 1:04 AM CDT Alphonso Horton MD LAB - JASVIR ROBIOLOGY ORDERABLES Performing Organization Address [facility]/ZIP Co de Phone Number [facility] [address] [place] [address] * (ABNORMAL) COAGULATION PANEL W D-DIMER (06/29/2009 12:00 AM CDT) PT 10.7 9.4 - 11.4 seconds [facility] INR 1.01 SEE BELOW [facility] Comment: Conventional anticoagulation 2.0-3.0 Intensive anticoagulation 2.5-3.5 PTT 25.6 24.0 - 33.0 seconds [facility] D-Dimer 10.47(HH) 0.43 - 2.8 mg/L [facility] Fibrinogen 286 150 - 450 mg/dl [facility] Platelet Count 255 150 - 400 K/CUMM [facility] Comment D-Dimer [facility] Comment: Elevated results above the normal range may indicate DIC in the appropriate clinical setting. Serial evaluations may yield information regarding the clinical course. If result is greater than 1.0 mg/L, DVT or PE is possible. BLOOD SPECIMEN / Unknown 06/29/2009 06/29/2009 12:26 AM CDT Alphonso Horton MD LAB - COA GULATION ORDERABLES Performing Organization Address [facility] de Phone Number [facility] [address] [place] [address] * (ABNORMAL) LACTIC ACID BLOOD (06/28/2009 11:45 PM CDT) Lactic Acid 2.2(H) 0.7 - 2.1 mmol/L [facility] BLOOD SPECIMEN / Unknown 06/28/2009 11:45 PM CDT 06/29/2009 12:24 AM CDT Tiffani Rosa MD LAB - CHEMISTRY ORDERABLES Performing Organization Address [facility] Co de Phone Number [facility] [address] [place] [address] * XR ABDOMEN 1 VW (06/28/2009 11:36 [...] Arterial 7.316(L) 7.35 - 7.45 pH Units [facility] pCO2 Arterial 36.9 35 - 45 mm Hg [facility] pO2 Arterial 219.7(H) 70 - 100 mm Hg [facility] HCO3 Arterial 18.4(L) 22 - 26 mmol/L [facility] Base Excess Arterial -7.0 -2.0 - 2.0 [facility] FI O2 Arterial or Capillary 100.0 % [facility] O2 Saturation Arterial 99.5 97 - 100 % [facility] Hemoglobin Arterial 12.4 12.0 - 16.0 gm% [facility] Oxyhemoglobin Arterial 98.8 94 - 100 % [facility] Carboxyhemoglobin Arterial 0.3 0 - 2 [facility] Methemoglobin Arterial 0.4 0.4 - 1.5 [facility] Vt 500 cc [facility] Mode a/c [facility] Respiratory Rate 14.0 [facility] PEEP 5 [facility] Site R. Radial [facility] Temp 37.0 oC [facility] ARTERIAL BLOOD SPECIMEN / Unknown 06/28/2009 8:24 PM CDT 06/28/2009 8:30 PM CDT Md Wade LAB - BLOOD GASES OR DERABLES [facility] [address] [place] [address] * (ABNORMAL) HGB HCT PANEL (03/19/2008 9:20 PM COTTON FACTOR) Hemoglobin 9.9(L) 12.0 - 16.0 gm/dl [facility] Hematocrit 29.4(L) 36.0 - 48.0 % [facility] BLOOD SPECIMEN / Unknown 03/19/2008 9:20 PM COTTON FACTOR Man Bolden MD LAB - HEMATOLOGY ORD ERABLES [facility] * URINALYSIS DIPSTICK AUTO (03/19/2008 9:25 AM COTTON FACTOR) Pathologist [facility] [place] Color UA YELLOW [facility] Character UA CLEAR [facility] Specific Bent UA 1.015 1.005 - 1.0300 [facility] pH UA 6.5 4.6 - 8.0 pH Units [facility] Leukocyte UA neg Negative /ul [facility] Nitrite UA neg Negative [facility] Protein UA neg Negative mg/dl [facility] Glucose UA norm Normal mg/dl [facility] Ketone UA 50 Negative mg/dl [facility] Urobilinogen UA norm Normal Delmer Units [facility] Bilirubin UA neg Negative mg/dl [facility] Blood UA neg Negative /ul [facility] URINE / Unknown 03/19/2008 9 :25 AM COTTON FACTOR Man Bolden MD LAB - URINALYSIS ORD ERABLES [facility] * CULTURE URINE (03/19/2008 9:25 AM COTTON FACTOR) Result [facility] Comment: Final CULTURE >10,000 colonies/ml Mixed gram positive jordon. MIXED CULTURE,NO FURTHER WORK-UP WILL BE PERFORMED RECOLLECT IF INDICATED URINE SPECIMEN COLLECTION, CATHETERIZED / Unknown 03/19/2008 9:25 AM COTTON FACTOR 03/19/2008 9:27 AM COTTON FACTOR Narrative Resulting Agency Comment Performed By [facility] [address] [place] [address] Man Bolden MD LAB - MICROBIOLOGY O RDERABLES Performing Organization Address [facility] Co de Phone Number [facility] * TYPE + SCREEN PANEL (03/19/2008 6:30 AM COTTON FACTOR) ABO Rh A Pos [facility] Antibody Screen Neg [facility] BLOOD SPECIMEN / Unknown 03/19/2008 6:30 AM COTTON FACTOR Man Bolden MD LAB - BLOOD BANK ORD ERABLES Performing Organization Address City/[facility]/ZIP Co de Phone Number [facility] Care Teams [employer] Technical Assistant Relationship Specialty Start Date End Date Antione Servin MD PCP - General Internal Medicine 07/08/17
--- OUTSIDE RECORDS SUMMARY | 2024-06-12 08:43 | XMS_ITS | Clinical Summary ---
Author Organization [facility] [employer] Address [address] [place] [address] Care Team Providers Care Data Center Manager Name Role Phone Antione Servin MD Primary Care Provider Unavaila ble Source Comments [facility],non-owned Affiliates and Associated Physician Practices is amultiple site organization consisting of ambulatory clinics and hospital sitesin [place], [place], [place] and [place]. This disclosure is being madepursuant to the Care Everywhere program and may not contain all information available regarding this patient. Last updated 17.[facility] [employer] Allergies Active Allergy Reactions Criticality Noted Date [...] 07/08/2017 2:24 PM CDT Plan of Treatment Upcoming Encounters Date Type Department Care Team (Late st Contact Info) Description 06/17/2024 9:10 AM CDT Office Visit [facility] Orthopedics [address] [address] [facility] [facility] [address] [place] [address] [place] [address] [facility] [address] [place] [address] Health Maintenance Due Date Last Done Comments MAMMOGRAM 1980 PAP SMEAR 1980 HIV SCREENING 12/23/1995 HEPATITIS C SCREENING 12/18/1998 DTAP/TDAP/TD VACCINES (1 - Tdap) 12/23/1999 HEPATITIS B VACCINE (1 of 3 - 19+ 3-dose series) 12/23/1999 LIPID TESTING 06/29/2014 06/29/2009 COVID-19 VACCINE (1 - 2023-2 5 season) 2023 INFLUENZA VACCINE (#1) 2023 [...] 12:10 AM CDT) Cholesterol 224(H) <200 mg/dl [facility] Triglycerides 101 <150 mg/dl [facility] HDL Cholesterol 41 >=40 mg/dl [facility] VLDL Calculated 20 <=30 mg/dl [facility] LDL Calculated 163(H) <100 mg/dl [facility] Cholesterol Risk Factor 5.46(H) <4.45 [facility] Comment Lipid [facility] Comment: Normal values based on [place] [employer] guidelines. LIPID PROFILE GUIDELINES Total [...] 06/29/2009 7:56 AM CDT Alphonso Horton MD [facility] ORDERABLES [facility] Organization Address City/State/[facility] Co de Phone Number [facility] [address] [place] [address] from Last 3 Months or Most Recently [...] 7:36 PM 07/05/2009 5:06 AM Care Teams Data Center Manager Relationship Specialty Start Date End Date Antione Servin MD PCP - General Internal Medicine 07/08/17
--- OUTSIDE RECORDS SUMMARY | 2024-06-12 08:43 | XMS_ITS | Referral Summary ---
Author Organization [facility] [employer] Address [address] [place] [address] Care Team Providers Care Associate Merchandise Planner Name Role Phone Antione Servin MD Primary Care Provider Unavaila ble Source Comments [facility],non-owned Affiliates and Associated Physician Practices is amultiple site organization consisting of ambulatory clinics and hospital sitesin [place], [place], [place] and [place]. This disclosure is being madepursuant to the Care Everywhere program and may not contain all information available regarding this patient. Last updated 17.[facility] [employer] Allergies Active Allergy Reactions Criticality Noted Date [...] concentrating/remembering/making decisions? No 06/13/2017 Plan of Treatment Upcoming Encounters Date Type Department Care Team (Late st Contact Info) Description 06/17/2024 9:10 AM CDT Office Visit [facility] Health Orthopedics [address], [address] [place] [address] [place] [address] [address] [place] [address] Procedures Procedure Name Priority Date/Time Associated Diagnosis Comments LIPID PROFILE Add on 06/29/2009 12:10 AM CDT Pulm Congest/Hypostasis from Last 3 Months or Most Recently Relevant to Health Maintenance Results * (ABNORMAL) LIPID PROFILE (06/29/2009 12:10 AM CDT) Cholesterol 224(H) <200 mg/dl [facility] Triglycerides 101 <150 mg/dl [facility] HDL Cholesterol 41 >=40 mg/dl [facility] VLDL Calculated 20 <=30 mg/dl [facility] LDL Calculated 163(H) <100 mg/dl [facility] Cholesterol Risk Factor 5.46(H) <4.45 [facility] Comment Lipid [facility] Comment: Normal values based on [place] Heart [employer] guidelines. LIPID PROFILE GUIDELINES Total [...] - GRUPO CORTNEY ORDERABLES Performing Organization Address City/State/[facility] Co de Phone Number [facility] [address] [place] [address] from Last 3 Months or Most Recently [...] 7:36 PM 07/05/2009 5:06 AM Care Teams Associate Merchandise Planner Relationship Specialty Start Date End Date Antione Servin MD PCP - General Internal Medicine 07/08/17
--- OUTSIDE RECORDS SUMMARY | 2024-06-12 08:43 | XMS_ITS | CONTINUITY OF CARE DOCUMENT ---
Author Name alva calle Address Unknown Organization [facility] Address [address] [place] [address] Phone [phone] Care Team Providers Care Leader Writer Name Role Phone Prateek WALTER, Rony Unavailable [phone] ALLISON CHAMBERLAIN MD Unavailable ALLISON CHAMBERLAIN MD Unavailable PROBLEMS Condition Status Date Provider Notes Deep Vein Thrombosis active ? Daysi arguello RN (History of) Pulmonary Embolism active ? Daysi Olivares RN (History of) ENCOUNTERS Date Type Provider Location Encounter Diag nosis - In-person encounter Office Visit Rony Chandra MD [facility] Office Deep Vein ThrombosisPulmonary Embolism [...] Ame jostin Lopez pulse rate 90 /min eKisha guardado oxygen saturation, oximetry 99 % Keisha [...] Payer name Policy type / Coverage type [facility] democrat ID [facility] Medical Management [id number] ADVANCE DIRECTIVES Name Date DISCUSSED - NO [...]
--- OUTSIDE RECORDS SUMMARY | 2024-06-12 08:43 | XMS_ITS | Clinical Summary ---
Author Organization [facility] Address [address] [place] [address] Care Team Providers Care Picker Operator Name Role Phone None, Provider MD [...] on file Legal Sex Female 10:21 AM MASTER BREWER Gender Identity Not on file Sexual Orientation Not on file Last Filed Vital Signs Vital Sign Reading Time Taken Comments Blood Pressure 134/83 02/21/2022 11:32 AM MASTER BREWER Pulse 76 02/21/2022 11:32 AM MASTER BREWER Temperature 36.3 C (97.3 F) 02/21/2022 11:32 AM MASTER BREWER Respiratory Rate 18 02/21/2022 11:32 AM MASTER BREWER Oxygen Saturation 100% 02/21/2022 11:32 AM MASTER BREWER Inhaled Oxygen Concentration - - Weight 69.9 kg (154 lb) 02/21/2022 11:32 AM MASTER BREWER Height 160 cm (5' 3 ) 02/21/2022 11:32 AM MASTER BREWER Body Mass Index 27.28 02/21/2022 11:32 AM MASTER BREWER Plan of Treatment Health Maintenance Due Date [...] patient's age to complete this topic Insurance [place] [address] Care Teams Picker Operator Relationship Specialty Start Date End Date None, Provider, PCP - General UNKNOWN PHYSICIAN SPECIALTY 02/21/22
--- NOTE | 2024-06-12 09:20 | ED.HA ---
HPI - Headache General Chief Complaint: Headache <Cassidy Ayon APRN - Last Filed: 06/12/24 20:07> Stated Complaint: double vision last night, headache <Cassidy Ayon APRN - Last Filed: 06/12/24 20:07> Time Seen by Provider: 06/12/24 08:53 <Cassidy Ayon APRN - Last Filed: 06/12/24 20:07> History of Present Illness HPI Narrative: Patient is a 43-year-old female who presents to the ER with headache started approximately 24 hours ago. She reports headache is on the right side of her head. Patient headache is causing pounding by her right ear and extends from the back of her neck over the top of her head. She approximately 2 weeks ago she was diagnosed with a pinched sciatic nerve and is unsure whether or not this is related. Patient denies any medical history signs hypothyroidism. She reports the headache has resulted in diplopia throughout the night and now blurry vision. Patient also reports she is having chest pains that increase she takes deep breaths. She denies any recent fevers, neck stiffness, one-sided numbness/tingling/weakness. <Cassidy Ayon APRN - Last Filed: 06/12/24 20:07> Related Data Home Medications: Home Medications ?Medication ?Instructions ?Recorded ?Confirmed ?Last Taken ?Type cholecalciferol (vitamin D3) 25 25 mcg PO DAILY 05/04/24 Unknown History mcg (1,000 unit) capsule levothyroxine 25 mcg tablet mcg 05/04/24 Unknown History thiamine HCl (vitamin B1) 250 mg 250 mg PO DAILY 05/04/24 Unknown History tablet <Cassidy Ayon APRN - Last Filed: 06/12/24 20:07> Allergies/Adverse Reactions: Allergies Allergy/AdvReac Type Severity Reaction Status Date / Time erythromycin base Allergy Severe Swelling Verified 06/12/24 08:32 of Lip/Tongue/Throat Penicillins Allergy Severe Swelling Verified 06/12/24 08:32 of Lip/Tongue/Throat tramadol Allergy Mild Hives Verified 06/12/24 08:32 <Cassidy Ayon APRN - Last Filed: 06/12/24 20:07> Review of Systems Review of Systems: All systems reviewed & are unremarkable except as noted in HPI and below <Cassidy Ayon APRN - Last Filed: 06/12/24 20:07> Exam Narrative: GENERAL: Mildly ill-appearing, well-nourished, non-toxic, in mild distress d/t headache. HEAD: Normocephalic, atraumatic. PERRLA intact NECK: Supple. No adenopathy, no masses. RESPIRATORY: Airway patent, respirations nonlabored. Clear to auscultation bilaterally, no rales, rhonchi, wheezing. CARDIOVASCULAR: Regular rate and rhythm without murmurs, rubs, or gallops. Peripheral pulses 2+ and equal bilaterally. ABDOMINAL: Soft, nontender, nondistended, no hepatosplenomegaly. Normoactive BS. MUSCULOSKELETAL: Moves all extremities. Strength/ROM intact without gross deformities. SKIN: Warm, dry, normal color. No rashes. NEURO: A&O X3. Speech clear. Cranial nerves II-XII grossly intact. Steady gait. No ataxic movements. PSYCHIATRIC: Appropriate mood, but flat affect. Normal interaction. <Cassidy Ayon APRN - Last Filed: 06/12/24 20:07> Course SALESFORCE BUSINESS ANALYST/PA Physician Supervision For this patient encounter, I reviewed the SALESFORCE BUSINESS ANALYST or PA documentation, treatment plan, and medical decision making; and I had [id number] time with this patient. <Nilton Mariano MD - Last Filed: 06/13/24 07:30> Vital Signs Vital signs: Vital Signs Temperature 98.3 F 06/12/24 08:38 Pulse Rate 93 06/12/24 08:38 Respiratory Rate 16 06/12/24 08:38 Blood Pressure 145/97 H 06/12/24 08:38 Pulse Oximetry 98 06/12/24 08:38 Oxygen Delivery Room Air 06/12/24 08:38 Temperature 98.7 F 06/12/24 18:32 Pulse Rate 77 06/12/24 21:46 Respiratory Rate 18 06/12/24 21:46 Blood Pressure 123/104 H 06/12/24 21:45 Pulse Oximetry 98 06/12/24 21:46 Oxygen Delivery Room Air 06/12/24 08:38 <Cassidy Ayon APRN - Last Filed: 06/12/24 20:07> Vital Signs Temperature 98.3 F 06/12/24 08:38 Pulse Rate 93 06/12/24 08:38 Respiratory Rate 16 06/12/24 08:38 Blood Pressure 145/97 H 06/12/24 08:38 Pulse Oximetry 98 06/12/24 08:38 Oxygen Delivery Room Air 06/12/24 08:38 Temperature 98.7 F 06/12/24 18:32 Pulse Rate 77 06/12/24 21:46 Respiratory Rate 18 06/12/24 21:46 Blood Pressure 123/104 H 06/12/24 21:45 Pulse Oximetry 98 06/12/24 21:46 Oxygen Delivery Room Air 06/12/24 08:38 <Nilton Mariano MD - Last Filed: 06/13/24 07:30> Vital Signs Temperature 98.3 F 06/12/24 08:38 Pulse Rate 93 06/12/24 08:38 Respiratory Rate 16 06/12/24 08:38 Blood Pressure 145/97 H 06/12/24 08:38 Pulse Oximetry 98 06/12/24 08:38 Oxygen Delivery Room Air 06/12/24 08:38 Temperature 98.7 F 06/12/24 18:32 Pulse Rate 77 06/12/24 21:46 Respiratory Rate 18 06/12/24 21:46 Blood Pressure 123/104 H 06/12/24 21:45 Pulse Oximetry 98 06/12/24 21:46 Oxygen Delivery Room Air 06/12/24 08:38 <Meredith Mcmanus PA-C - Last Filed: 06/13/24 01:04> MDM - Headache MDM Narrative Medical decision making narrative: Patient is a 43-year-old female who presents to the ER with headache started approximately 24 hours ago. She reports headache is on the right side of her head. Patient headache is causing pounding by her right ear and extends from the back of her neck over the top of her head. She approximately 2 weeks ago she was diagnosed with a pinched sciatic nerve and is unsure whether or not this is related. Patient denies any medical history signs hypothyroidism. She reports the headache has resulted in diplopia throughout the night and now blurry vision. Patient also reports she is having chest pains that increase when she takes deep breaths. She denies any recent fevers, neck stiffness, one-sided numbness/tingling/weakness. Labs Ordered: CBC, CMP, TSH, UA, troponin Imaging Ordered: CT brain, CTA PE scan, chest x-ray Medications Ordered: Normal saline IV bolus, Decadron 10mg IV, Benadryl 25mg IV, Toradol 15mg IV Results: Patient's head CT did not indicate any acute abnormalities, her chest x-ray did not and any abnormalities patient's CTA PE indicates patient has an acute saddle PE with right heart strain. Diagnosis: acute saddle PE with right heart strain, migraine headache Risks: HEART score: low risk HEART Score for Major Cardiac Events from [email or web address] on 06/12/2024 All calculations should be rechecked by clinician prior to use RESULT SUMMARY: 2 points Low Score (0-3 points) Risk of MACE of 0.9-1.7%. If troponin is positive, many experts recommend further workup and admission even with a low HEART Score. INPUTS: History ?> 0 = Slightly suspicious EKG ?> 0 = Normal Age ?> 0 = <45 Risk factors ?> 0 = No known risk factors Initial troponin ?> 2 = >3? normal limit Consults: 1115- Spoke with [facility] transfer center. 1120- Pt started on heparin drip. 1330-Patient was accepted at [facility] in [place]. The accepting doctor is Dr. Connor. They will call back with a bed assignment. No new orders requested by the hospitalist. Patient Education/Shared MDM: Results shared with patient. She endorses improvement following medication administration for her headache. Pt reports she had a pulmonary embolism in 2017, but is no longer on blood thinners. She would like to be admitted at [facility] [place], but is in agreement with any facility. 1800-patient continues to experience a mild headache, but declines pain medication administration. Called transfer line and patient is still waiting a bed assignment. 1999-Care transferred to Meredith Mcmanus PA-C. Pt is still waiting for a bed assignment. <Cassidy Ayon, BRADY - Last Filed: 06/12/24 20:07> Patient is a 43-year-old female who presents to the ER with headache started approximately 24 hours ago. She reports headache is on the right side of her head. Patient headache is causing pounding by her right ear and extends from the back of her neck over the top of her head. She approximately 2 weeks ago she was diagnosed with a pinched sciatic nerve and is unsure whether or not this is related. Patient denies any medical history signs hypothyroidism. She reports the headache has resulted in diplopia throughout the night and now blurry vision. Patient also reports she is having chest pains that increase when she takes deep breaths. She denies any recent fevers, neck stiffness, one-sided numbness/tingling/weakness. Labs Ordered: CBC, CMP, TSH, UA, troponin Imaging Ordered: CT brain, CTA PE scan, chest x-ray Medications Ordered: Normal saline IV bolus, Decadron 10mg IV, Benadryl 25mg IV, Toradol 15mg IV Results: Patient's head CT did not indicate any acute abnormalities, her chest x-ray did not and any abnormalities patient's CTA PE indicates patient has an acute saddle PE with right heart strain. Diagnosis: acute saddle PE with right heart strain, migraine headache Risks: HEART score: low risk HEART Score for Major Cardiac Events from [email or web address] on 06/12/2024 All calculations should be rechecked by clinician prior to use RESULT SUMMARY: 2 points Low Score (0-3 points) Risk of MACE of 0.9-1.7%. If troponin is positive, many experts recommend further workup and admission even with a low HEART Score. INPUTS: History ?> 0 = Slightly suspicious EKG ?> 0 = Normal Age ?> 0 = <45 Risk factors ?> 0 = No known risk factors Initial troponin ?> 2 = >3? normal limit Consults: 1115- Spoke with [facility] transfer center. 1120- Pt started on heparin drip. 1330-Patient was accepted at [facility] in [place]. The accepting doctor is Dr. Connor. They will call back with a bed assignment. No new orders requested by the hospitalist. Patient Education/Shared MDM: Results shared with patient. She endorses improvement following medication administration for her headache. Pt reports she had a pulmonary embolism in 2017, but is no longer on blood thinners. She would like to be admitted at [facility] [place], but is in agreement with any facility. 1800-patient continues to experience a mild headache, but declines pain medication administration. Called transfer line and patient is still waiting a bed assignment. 1999-Care transferred to Meredith Mcmanus PA-C. Pt is still waiting for a bed assignment. 2229-patient received a bed at [facility]. Transportation being arranged. No further issues or concerns. Patient given Tylenol for headache. Remains hemodynamically stable at time of transfer. <Meredith Mcmanus PA-C - Last Filed: 06/13/24 01:04> Differential Diagnosis Differential diagnosis: Likely migraine, subarachnoid hemorrhage and headache <Cassidy Ayon APRN - Last Filed: 06/12/24 20:07> Lab Data Result diagrams: 06/12/24 09:54 06/12/24 09:54 <Cassidy Ayon APRN - Last Filed: 06/12/24 20:07> Labs: Lab Results 06/12/24 06/12/24 06/12/24 Range/Units 09:54 09:54 09:54 WBC 14.8 H (4.5-10.0) K/mm3 RBC 4.13 L (4.2-5.4) M/mm3 Hgb 10.8 L (12.0-15.0) g/dL Hct 34.1 L (37.0-47.0) % MCV 82.6 (80-100) fl MCH 26.2 (26-34) pg MCHC 31.7 L (32-36) g/dl RDW 16.0 H (11.5-14.5) % Plt Count 360 (150-375) k/mm3 MPV 10.7 H (7.4-10.4) fl Immature Gran % (Auto) 0.5 (0-0.5) % Neut % (Auto) 84.1 H (45.5-73.1) % Lymph % (Auto) 11.2 L (18.3-44.2) % [place] % (Auto) 4.1 (2.6-8.5) % Eos % (Auto) 0.0 (0-4.4) % Baso % (Auto) 0.1 L (0.2-1.2) % Lymph # (Auto) 1.66 (0.9-3.2) K/mm3 [place] # (Auto) 0.6 (0.1-0.6) K/mm3 Eos # (Auto) 0.0 (0-0.3) K/mm3 Baso # (Auto) 0.0 (0.0-0.1) K/mm3 Abs Immat Gran (auto) 0.07 H (0.00-0.031) K/mm3 Absolute Neuts (auto) 12.5 H (1.3-6.7) K/mm3 Absolute Nucleated RBC 0.000 (0.0-0.012) K/mm3 Nucleated RBC % 0.0 (0.0-0.2) % PT 14.0 (11.1-14.7) Seconds INR 1.1 APTT 28.4 (22.3-36.8) Seconds Sodium Cancelled 140 Potassium Cancelled 3.7 Chloride Cancelled Carbon Dioxide Anion Gap BUN Creatinine Estim Creat Clear Calc Estimated GFR Glucose Calcium Total Bilirubin AST ALT Alkaline Phosphatase Troponin I (0.000-0.034) ng/mL Total Protein Albumin TSH (Reflex) (0.465-4.68) uIU/mL Urine Color (Yellow) Urine Appearance (Clear) Urine pH (5.0-9.0) Ur Specific [place] (1.001-1.035) Urine Protein (Negative) mg/dL Urine Glucose (UA) (Negative) mg/dL Urine Ketones (Negative) mg/dL Ur Blood (Man) (Negative) Urine Nitrate (Negative) Urine Bilirubin (Negative) Urine Urobilinogen (<2.0) mg/dL Leukocyte Esterase Rfl (Negative) SARY/UL Urine RBC (0-2) /hpf Urine WBC (0-3) /hpf Ur Squamous Epith Cells (Few) /hpf Urine Bacteria /hpf Urine Casts 06/12/24 06/12/24 06/12/24 Range/Units 09:54 09:54 09:54 WBC (4.5-10.0) K/mm3 RBC (4.2-5.4) M/mm3 Hgb (12.0-15.0) g/dL Hct (37.0-47.0) % MCV (80-100) fl MCH (26-34) pg MCHC (32-36) g/dl RDW (11.5-14.5) % Plt Count (150-375) k/mm3 MPV (7.4-10.4) fl Immature Gran % (Auto) (0-0.5) % Neut % (Auto) (45.5-73.1) % Lymph % (Auto) (18.3-44.2) % [place] % (Auto) (2.6-8.5) % Eos % (Auto) (0-4.4) % Baso % (Auto) (0.2-1.2) % Lymph # (Auto) (0.9-3.2) K/mm3 [place] # (Auto) (0.1-0.6) K/mm3 Eos # (Auto) (0-0.3) K/mm3 Baso # (Auto) (0.0-0.1) K/mm3 Abs Immat Gran (auto) (0.00-0.031) K/mm3 Absolute Neuts (auto) (1.3-6.7) K/mm3 Absolute Nucleated RBC (0.0-0.012) K/mm3 Nucleated RBC % (0.0-0.2) % PT (11.1-14.7) Seconds INR APTT (22.3-36.8) Seconds Sodium Potassium Chloride 105 Carbon Dioxide Cancelled 20 L Anion Gap Cancelled 15 H BUN Cancelled Creatinine Estim Creat Clear Calc Estimated GFR Glucose Calcium Total Bilirubin AST ALT Alkaline Phosphatase Troponin I (0.000-0.034) ng/mL Total Protein Albumin TSH (Reflex) (0.465-4.68) uIU/mL Urine Color (Yellow) Urine Appearance (Clear) Urine pH (5.0-9.0) Ur Specific [place] (1.001-1.035) Urine Protein (Negative) mg/dL Urine Glucose (UA) (Negative) mg/dL Urine Ketones (Negative) mg/dL Ur Blood (Man) (Negative) Urine Nitrate (Negative) Urine Bilirubin (Negative) Urine Urobilinogen (<2.0) mg/dL Leukocyte Esterase Rfl (Negative) SARY/UL Urine RBC (0-2) /hpf Urine WBC (0-3) /hpf Ur Squamous Epith Cells (Few) /hpf Urine Bacteria /hpf Urine Casts 06/12/24 06/12/24 06/12/24 Range/Units 09:54 09:54 09:54 WBC (4.5-10.0) K/mm3 RBC (4.2-5.4) M/mm3 Hgb (12.0-15.0) g/dL Hct (37.0-47.0) % MCV (80-100) fl MCH (26-34) pg MCHC (32-36) g/dl RDW (11.5-14.5) % Plt Count (150-375) k/mm3 MPV (7.4-10.4) fl Immature Gran % (Auto) (0-0.5) % Neut % (Auto) (45.5-73.1) % Lymph % (Auto) (18.3-44.2) % [place] % (Auto) (2.6-8.5) % Eos % (Auto) (0-4.4) % Baso % (Auto) (0.2-1.2) % Lymph # (Auto) (0.9-3.2) K/mm3 [place] # (Auto) (0.1-0.6) K/mm3 Eos # (Auto) (0-0.3) K/mm3 Baso # (Auto) (0.0-0.1) K/mm3 Abs Immat Gran (auto) (0.00-0.031) K/mm3 Absolute Neuts (auto) (1.3-6.7) K/mm3 Absolute Nucleated RBC (0.0-0.012) K/mm3 Nucleated RBC % (0.0-0.2) % PT (11.1-14.7) Seconds INR APTT (22.3-36.8) Seconds Sodium Potassium Chloride Carbon Dioxide Anion Gap BUN 13 Creatinine Cancelled 0.88 Estim Creat Clear Calc Cancelled 69 Estimated GFR Cancelled Glucose Calcium Total Bilirubin AST ALT Alkaline Phosphatase Troponin I (0.000-0.034) ng/mL Total Protein Albumin TSH (Reflex) (0.465-4.68) uIU/mL Urine Color (Yellow) Urine Appearance (Clear) Urine pH (5.0-9.0) Ur Specific [place] (1.001-1.035) Urine Protein (Negative) mg/dL Urine Glucose (UA) (Negative) mg/dL Urine Ketones (Negative) mg/dL Ur Blood (Man) (Negative) Urine Nitrate (Negative) Urine Bilirubin (Negative) Urine Urobilinogen (<2.0) mg/dL Leukocyte Esterase Rfl (Negative) SARY/UL Urine RBC (0-2) /hpf Urine WBC (0-3) /hpf Ur Squamous Epith Cells (Few) /hpf Urine Bacteria /hpf Urine Casts 06/12/24 06/12/24 06/12/24 Range/Units 09:54 09:54 09:54 WBC (4.5-10.0) K/mm3 RBC (4.2-5.4) M/mm3 Hgb (12.0-15.0) g/dL Hct (37.0-47.0) % MCV (80-100) fl MCH (26-34) pg MCHC (32-36) g/dl RDW (11.5-14.5) % Plt Count (150-375) k/mm3 MPV (7.4-10.4) fl Immature Gran % (Auto) (0-0.5) % Neut % (Auto) (45.5-73.1) % Lymph % (Auto) (18.3-44.2) % [place] % (Auto) (2.6-8.5) % Eos % (Auto) (0-4.4) % Baso % (Auto) (0.2-1.2) % Lymph # (Auto) (0.9-3.2) K/mm3 [place] # (Auto) (0.1-0.6) K/mm3 Eos # (Auto) (0-0.3) K/mm3 Baso # (Auto) (0.0-0.1) K/mm3 Abs Immat Gran (auto) (0.00-0.031) K/mm3 Absolute Neuts (auto) (1.3-6.7) K/mm3 Absolute Nucleated RBC (0.0-0.012) K/mm3 Nucleated RBC % (0.0-0.2) % PT (11.1-14.7) Seconds INR APTT (22.3-36.8) Seconds Sodium Potassium Chloride Carbon Dioxide Anion Gap BUN Creatinine Estim Creat Clear Calc Estimated GFR > 60 Glucose Cancelled 117 H Calcium Cancelled 9.7 Total Bilirubin Cancelled AST ALT Alkaline Phosphatase Troponin I (0.000-0.034) ng/mL Total Protein Albumin TSH (Reflex) (0.465-4.68) uIU/mL Urine Color (Yellow) Urine Appearance (Clear) Urine pH (5.0-9.0) Ur Specific [place] (1.001-1.035) Urine Protein (Negative) mg/dL Urine Glucose (UA) (Negative) mg/dL Urine Ketones (Negative) mg/dL Ur Blood (Man) (Negative) Urine Nitrate (Negative) Urine Bilirubin (Negative) Urine Urobilinogen (<2.0) mg/dL Leukocyte Esterase Rfl (Negative) SARY/UL Urine RBC (0-2) /hpf Urine WBC (0-3) /hpf Ur Squamous Epith Cells (Few) /hpf Urine Bacteria /hpf Urine Casts 06/12/24 06/12/24 06/12/24 Range/Units 09:54 09:54 09:54 WBC (4.5-10.0) K/mm3 RBC (4.2-5.4) M/mm3 Hgb (12.0-15.0) g/dL Hct (37.0-47.0) % MCV (80-100) fl MCH (26-34) pg MCHC (32-36) g/dl RDW (11.5-14.5) % Plt Count (150-375) k/mm3 MPV (7.4-10.4) fl Immature Gran % (Auto) (0-0.5) % Neut % (Auto) (45.5-73.1) % Lymph % (Auto) (18.3-44.2) % [place] % (Auto) (2.6-8.5) % Eos % (Auto) (0-4.4) % Baso % (Auto) (0.2-1.2) % Lymph # (Auto) (0.9-3.2) K/mm3 [place] # (Auto) (0.1-0.6) K/mm3 Eos # (Auto) (0-0.3) K/mm3 Baso # (Auto) (0.0-0.1) K/mm3 Abs Immat Gran (auto) (0.00-0.031) K/mm3 Absolute Neuts (auto) (1.3-6.7) K/mm3 Absolute Nucleated RBC (0.0-0.012) K/mm3 Nucleated RBC % (0.0-0.2) % PT (11.1-14.7) Seconds INR APTT (22.3-36.8) Seconds Sodium Potassium Chloride Carbon Dioxide Anion Gap BUN Creatinine Estim Creat Clear Calc Estimated GFR Glucose Calcium Total Bilirubin 1.5 H AST Cancelled 22 ALT Cancelled 13 Alkaline Phosphatase Cancelled Troponin I (0.000-0.034) ng/mL Total Protein Albumin TSH (Reflex) (0.465-4.68) uIU/mL Urine Color (Yellow) Urine Appearance (Clear) Urine pH (5.0-9.0) Ur Specific [place] (1.001-1.035) Urine Protein (Negative) mg/dL Urine Glucose (UA) (Negative) mg/dL Urine Ketones (Negative) mg/dL Ur Blood (Man) (Negative) Urine Nitrate (Negative) Urine Bilirubin (Negative) Urine Urobilinogen (<2.0) mg/dL Leukocyte Esterase Rfl (Negative) SARY/UL Urine RBC (0-2) /hpf Urine WBC (0-3) /hpf Ur Squamous Epith Cells (Few) /hpf Urine Bacteria /hpf Urine Casts 06/12/24 06/12/24 06/12/24 Range/Units 09:54 09:54 09:54 WBC (4.5-10.0) K/mm3 RBC (4.2-5.4) M/mm3 Hgb (12.0-15.0) g/dL Hct (37.0-47.0) % MCV (80-100) fl MCH (26-34) pg MCHC (32-36) g/dl RDW (11.5-14.5) % Plt Count (150-375) k/mm3 MPV (7.4-10.4) fl Immature Gran % (Auto) (0-0.5) % Neut % (Auto) (45.5-73.1) % Lymph % (Auto) (18.3-44.2) % [place] % (Auto) (2.6-8.5) % Eos % (Auto) (0-4.4) % Baso % (Auto) (0.2-1.2) % Lymph # (Auto) (0.9-3.2) K/mm3 [place] # (Auto) (0.1-0.6) K/mm3 Eos # (Auto) (0-0.3) K/mm3 Baso # (Auto) (0.0-0.1) K/mm3 Abs Immat Gran (auto) (0.00-0.031) K/mm3 Absolute Neuts (auto) (1.3-6.7) K/mm3 Absolute Nucleated RBC (0.0-0.012) K/mm3 Nucleated RBC % (0.0-0.2) % PT (11.1-14.7) Seconds INR APTT (22.3-36.8) Seconds Sodium Potassium Chloride Carbon Dioxide Anion Gap BUN Creatinine Estim Creat Clear Calc Estimated GFR Glucose Calcium Total Bilirubin AST ALT Alkaline Phosphatase 98 Troponin I 0.446 H* (0.000-0.034) ng/mL Total Protein Cancelled 8.0 Albumin Cancelled 4.5 TSH (Reflex) 1.250 (0.465-4.68) uIU/mL Urine Color (Yellow) Urine Appearance (Clear) Urine pH (5.0-9.0) Ur Specific [place] (1.001-1.035) Urine Protein (Negative) mg/dL Urine Glucose (UA) (Negative) mg/dL Urine Ketones (Negative) mg/dL Ur Blood (Man) (Negative) Urine Nitrate (Negative) Urine Bilirubin (Negative) Urine Urobilinogen (<2.0) mg/dL Leukocyte Esterase Rfl (Negative) SARY/UL Urine RBC (0-2) /hpf Urine WBC (0-3) /hpf Ur Squamous Epith Cells (Few) /hpf Urine Bacteria /hpf Urine Casts 06/12/24 06/12/24 06/12/24 Range/Units 11:28 13:18 19:55 WBC (4.5-10.0) K/mm3 RBC (4.2-5.4) M/mm3 Hgb (12.0-15.0) g/dL Hct (37.0-47.0) % MCV (80-100) fl MCH (26-34) pg MCHC (32-36) g/dl RDW (11.5-14.5) % Plt Count (150-375) k/mm3 MPV (7.4-10.4) fl Immature Gran % (Auto) (0-0.5) % Neut % (Auto) (45.5-73.1) % Lymph % (Auto) (18.3-44.2) % [place] % (Auto) (2.6-8.5) % Eos % (Auto) (0-4.4) % Baso % (Auto) (0.2-1.2) % Lymph # (Auto) (0.9-3.2) K/mm3 [place] # (Auto) (0.1-0.6) K/mm3 Eos # (Auto) (0-0.3) K/mm3 Baso # (Auto) (0.0-0.1) K/mm3 Abs Immat Gran (auto) (0.00-0.031) K/mm3 Absolute Neuts (auto) (1.3-6.7) K/mm3 Absolute Nucleated RBC (0.0-0.012) K/mm3 Nucleated RBC % (0.0-0.2) % PT (11.1-14.7) Seconds INR APTT 99.0 H (22.3-36.8) Seconds Sodium Potassium Chloride Carbon Dioxide Anion Gap BUN Creatinine Estim Creat Clear Calc Estimated GFR Glucose Calcium Total Bilirubin AST ALT Alkaline Phosphatase Troponin I 0.574 H* D (0.000-0.034) ng/mL Total Protein Albumin TSH (Reflex) (0.465-4.68) uIU/mL Urine Color Yellow (Yellow) Urine Appearance Cloudy H (Clear) Urine pH 6.0 (5.0-9.0) Ur Specific [place] 1.009 (1.001-1.035) Urine Protein Negative (Negative) mg/dL Urine Glucose (UA) Negative (Negative) mg/dL Urine Ketones Negative (Negative) mg/dL Ur Blood (Man) Negative (Negative) Urine Nitrate Negative (Negative) Urine Bilirubin Negative (Negative) Urine Urobilinogen 0.2 (<2.0) mg/dL Leukocyte Esterase Rfl Negative (Negative) SARY/UL Urine RBC 0-2 (0-2) /hpf Urine WBC 0-5 (0-3) /hpf Ur Squamous Epith Cells None seen (Few) /hpf Urine Bacteria None seen /hpf Urine Casts 0-2 <Cassidy Ayon, [employer]ISS[employer] STEWARD - Last Filed: 06/12/24 20:07> Lab Results 06/12/24 06/12/24 06/12/24 Range/Units 09:54 09:54 09:54 WBC 14.8 H (4.5-10.0) K/mm3 RBC 4.13 L (4.2-5.4) M/mm3 Hgb 10.8 L (12.0-15.0) g/dL Hct 34.1 L (37.0-47.0) % MCV 82.6 (80-100) fl MCH 26.2 (26-34) pg MCHC 31.7 L (32-36) g/dl RDW 16.0 H (11.5-14.5) % Plt Count 360 (150-375) k/mm3 MPV 10.7 H (7.4-10.4) fl Immature Gran % (Auto) 0.5 (0-0.5) % Neut % (Auto) 84.1 H (45.5-73.1) % Lymph % (Auto) 11.2 L (18.3-44.2) % [place] % (Auto) 4.1 (2.6-8.5) % Eos % (Auto) 0.0 (0-4.4) % Baso % (Auto) 0.1 L (0.2-1.2) % Lymph # (Auto) 1.66 (0.9-3.2) K/mm3 [place] # (Auto) 0.6 (0.1-0.6) K/mm3 Eos # (Auto) 0.0 (0-0.3) K/mm3 Baso # (Auto) 0.0 (0.0-0.1) K/mm3 Abs Immat Gran (auto) 0.07 H (0.00-0.031) K/mm3 Absolute Neuts (auto) 12.5 H (1.3-6.7) K/mm3 Absolute Nucleated RBC 0.000 (0.0-0.012) K/mm3 Nucleated RBC % 0.0 (0.0-0.2) % PT 14.0 (11.1-14.7) Seconds INR 1.1 APTT 28.4 (22.3-36.8) Seconds Sodium Cancelled 140 Potassium Cancelled 3.7 Chloride Cancelled Carbon Dioxide Anion Gap BUN Creatinine Estim Creat Clear Calc Estimated GFR Glucose Calcium Total Bilirubin AST ALT Alkaline Phosphatase Troponin I (0.000-0.034) ng/mL Total Protein Albumin TSH (Reflex) (0.465-4.68) uIU/mL Urine Color (Yellow) Urine Appearance (Clear) Urine pH (5.0-9.0) Ur Specific [place] (1.001-1.035) Urine Protein (Negative) mg/dL Urine Glucose (UA) (Negative) mg/dL Urine Ketones (Negative) mg/dL Ur Blood (Man) (Negative) Urine Nitrate (Negative) Urine Bilirubin (Negative) Urine Urobilinogen (<2.0) mg/dL Leukocyte Esterase Rfl (Negative) SARY/UL Urine RBC (0-2) /hpf Urine WBC (0-3) /hpf Ur Squamous Epith Cells (Few) /hpf Urine Bacteria /hpf Urine Casts 06/12/24 06/12/24 06/12/24 Range/Units 09:54 09:54 09:54 WBC (4.5-10.0) K/mm3 RBC (4.2-5.4) M/mm3 Hgb (12.0-15.0) g/dL Hct (37.0-47.0) % MCV (80-100) fl MCH (26-34) pg MCHC (32-36) g/dl RDW (11.5-14.5) % Plt Count (150-375) k/mm3 MPV (7.4-10.4) fl Immature Gran % (Auto) (0-0.5) % Neut % (Auto) (45.5-73.1) % Lymph % (Auto) (18.3-44.2) % [place] % (Auto) (2.6-8.5) % Eos % (Auto) (0-4.4) % Baso % (Auto) (0.2-1.2) % Lymph # (Auto) (0.9-3.2) K/mm3 [place] # (Auto) (0.1-0.6) K/mm3 Eos # (Auto) (0-0.3) K/mm3 Baso # (Auto) (0.0-0.1) K/mm3 Abs Immat Gran (auto) (0.00-0.031) K/mm3 Absolute Neuts (auto) (1.3-6.7) K/mm3 Absolute Nucleated RBC (0.0-0.012) K/mm3 Nucleated RBC % (0.0-0.2) % PT (11.1-14.7) Seconds INR APTT (22.3-36.8) Seconds Sodium Potassium Chloride 105 Carbon Dioxide Cancelled 20 L Anion Gap Cancelled 15 H BUN Cancelled Creatinine Estim Creat Clear Calc Estimated GFR Glucose Calcium Total Bilirubin AST ALT Alkaline Phosphatase Troponin I (0.000-0.034) ng/mL Total Protein Albumin TSH (Reflex) (0.465-4.68) uIU/mL Urine Color (Yellow) Urine Appearance (Clear) Urine pH (5.0-9.0) Ur Specific [place] (1.001-1.035) Urine Protein (Negative) mg/dL Urine Glucose (UA) (Negative) mg/dL Urine Ketones (Negative) mg/dL Ur Blood (Man) (Negative) Urine Nitrate (Negative) Urine Bilirubin (Negative) Urine Urobilinogen (<2.0) mg/dL Leukocyte Esterase Rfl (Negative) SARY/UL Urine RBC (0-2) /hpf Urine WBC (0-3) /hpf Ur Squamous Epith Cells (Few) /hpf Urine Bacteria /hpf Urine Casts 06/12/24 06/12/24 06/12/24 Range/Units 09:54 09:54 09:54 WBC (4.5-10.0) K/mm3 RBC (4.2-5.4) M/mm3 Hgb (12.0-15.0) g/dL Hct (37.0-47.0) % MCV (80-100) fl MCH (26-34) pg MCHC (32-36) g/dl RDW (11.5-14.5) % Plt Count (150-375) k/mm3 MPV (7.4-10.4) fl Immature Gran % (Auto) (0-0.5) % Neut % (Auto) (45.5-73.1) % Lymph % (Auto) (18.3-44.2) % [place] % (Auto) (2.6-8.5) % Eos % (Auto) (0-4.4) % Baso % (Auto) (0.2-1.2) % Lymph # (Auto) (0.9-3.2) K/mm3 [place] # (Auto) (0.1-0.6) K/mm3 Eos # (Auto) (0-0.3) K/mm3 Baso # (Auto) (0.0-0.1) K/mm3 Abs Immat Gran (auto) (0.00-0.031) K/mm3 Absolute Neuts (auto) (1.3-6.7) K/mm3 Absolute Nucleated RBC (0.0-0.012) K/mm3 Nucleated RBC % (0.0-0.2) % PT (11.1-14.7) Seconds INR APTT (22.3-36.8) Seconds Sodium Potassium Chloride Carbon Dioxide Anion Gap BUN 13 Creatinine Cancelled 0.88 Estim Creat Clear Calc Cancelled 69 Estimated GFR Cancelled Glucose Calcium Total Bilirubin AST ALT Alkaline Phosphatase Troponin I (0.000-0.034) ng/mL Total Protein Albumin TSH (Reflex) (0.465-4.68) uIU/mL Urine Color (Yellow) Urine Appearance (Clear) Urine pH (5.0-9.0) Ur Specific [place] (1.001-1.035) Urine Protein (Negative) mg/dL Urine Glucose (UA) (Negative) mg/dL Urine Ketones (Negative) mg/dL Ur Blood (Man) (Negative) Urine Nitrate (Negative) Urine Bilirubin (Negative) Urine Urobilinogen (<2.0) mg/dL Leukocyte Esterase Rfl (Negative) SARY/UL Urine RBC (0-2) /hpf Urine WBC (0-3) /hpf Ur Squamous Epith Cells (Few) /hpf Urine Bacteria /hpf Urine Casts 06/12/24 06/12/24 06/12/24 Range/Units 09:54 09:54 09:54 WBC (4.5-10.0) K/mm3 RBC (4.2-5.4) M/mm3 Hgb (12.0-15.0) g/dL Hct (37.0-47.0) % MCV (80-100) fl MCH (26-34) pg MCHC (32-36) g/dl RDW (11.5-14.5) % Plt Count (150-375) k/mm3 MPV (7.4-10.4) fl Immature Gran % (Auto) (0-0.5) % Neut % (Auto) (45.5-73.1) % Lymph % (Auto) (18.3-44.2) % [place] % (Auto) (2.6-8.5) % Eos % (Auto) (0-4.4) % Baso % (Auto) (0.2-1.2) % Lymph # (Auto) (0.9-3.2) K/mm3 [place] # (Auto) (0.1-0.6) K/mm3 Eos # (Auto) (0-0.3) K/mm3 Baso # (Auto) (0.0-0.1) K/mm3 Abs Immat Gran (auto) (0.00-0.031) K/mm3 Absolute Neuts (auto) (1.3-6.7) K/mm3 Absolute Nucleated RBC (0.0-0.012) K/mm3 Nucleated RBC % (0.0-0.2) % PT (11.1-14.7) Seconds INR APTT (22.3-36.8) Seconds Sodium Potassium Chloride Carbon Dioxide Anion Gap BUN Creatinine Estim Creat Clear Calc Estimated GFR > 60 Glucose Cancelled 117 H Calcium Cancelled 9.7 Total Bilirubin Cancelled AST ALT Alkaline Phosphatase Troponin I (0.000-0.034) ng/mL Total Protein Albumin TSH (Reflex) (0.465-4.68) uIU/mL Urine Color (Yellow) Urine Appearance (Clear) Urine pH (5.0-9.0) Ur Specific [place] (1.001-1.035) Urine Protein (Negative) mg/dL Urine Glucose (UA) (Negative) mg/dL Urine Ketones (Negative) mg/dL Ur Blood (Man) (Negative) Urine Nitrate (Negative) Urine Bilirubin (Negative) Urine Urobilinogen (<2.0) mg/dL Leukocyte Esterase Rfl (Negative) SARY/UL Urine RBC (0-2) /hpf Urine WBC (0-3) /hpf Ur Squamous Epith Cells (Few) /hpf Urine Bacteria /hpf Urine Casts 06/12/24 06/12/24 06/12/24 Range/Units 09:54 09:54 09:54 WBC (4.5-10.0) K/mm3 RBC (4.2-5.4) M/mm3 Hgb (12.0-15.0) g/dL Hct (37.0-47.0) % MCV (80-100) fl MCH (26-34) pg MCHC (32-36) g/dl RDW (11.5-14.5) % Plt Count (150-375) k/mm3 MPV (7.4-10.4) fl Immature Gran % (Auto) (0-0.5) % Neut % (Auto) (45.5-73.1) % Lymph % (Auto) (18.3-44.2) % [place] % (Auto) (2.6-8.5) % Eos % (Auto) (0-4.4) % Baso % (Auto) (0.2-1.2) % Lymph # (Auto) (0.9-3.2) K/mm3 [place] # (Auto) (0.1-0.6) K/mm3 Eos # (Auto) (0-0.3) K/mm3 Baso # (Auto) (0.0-0.1) K/mm3 Abs Immat Gran (auto) (0.00-0.031) K/mm3 Absolute Neuts (auto) (1.3-6.7) K/mm3 Absolute Nucleated RBC (0.0-0.012) K/mm3 Nucleated RBC % (0.0-0.2) % PT (11.1-14.7) Seconds INR APTT (22.3-36.8) Seconds Sodium Potassium Chloride Carbon Dioxide Anion Gap BUN Creatinine Estim Creat Clear Calc Estimated GFR Glucose Calcium Total Bilirubin 1.5 H AST Cancelled 22 ALT Cancelled 13 Alkaline Phosphatase Cancelled Troponin I (0.000-0.034) ng/mL Total Protein Albumin TSH (Reflex) (0.465-4.68) uIU/mL Urine Color (Yellow) Urine Appearance (Clear) Urine pH (5.0-9.0) Ur Specific [place] (1.001-1.035) Urine Protein (Negative) mg/dL Urine Glucose (UA) (Negative) mg/dL Urine Ketones (Negative) mg/dL Ur Blood (Man) (Negative) Urine Nitrate (Negative) Urine Bilirubin (Negative) Urine Urobilinogen (<2.0) mg/dL Leukocyte Esterase Rfl (Negative) SARY/UL Urine RBC (0-2) /hpf Urine WBC (0-3) /hpf Ur Squamous Epith Cells (Few) /hpf Urine Bacteria /hpf Urine Casts 06/12/24 06/12/24 06/12/24 Range/Units 09:54 09:54 09:54 WBC (4.5-10.0) K/mm3 RBC (4.2-5.4) M/mm3 Hgb (12.0-15.0) g/dL Hct (37.0-47.0) % MCV (80-100) fl MCH (26-34) pg MCHC (32-36) g/dl RDW (11.5-14.5) % Plt Count (150-375) k/mm3 MPV (7.4-10.4) fl Immature Gran % (Auto) (0-0.5) % Neut % (Auto) (45.5-73.1) % Lymph % (Auto) (18.3-44.2) % [place] % (Auto) (2.6-8.5) % Eos % (Auto) (0-4.4) % Baso % (Auto) (0.2-1.2) % Lymph # (Auto) (0.9-3.2) K/mm3 [place] # (Auto) (0.1-0.6) K/mm3 Eos # (Auto) (0-0.3) K/mm3 Baso # (Auto) (0.0-0.1) K/mm3 Abs Immat Gran (auto) (0.00-0.031) K/mm3 Absolute Neuts (auto) (1.3-6.7) K/mm3 Absolute Nucleated RBC (0.0-0.012) K/mm3 Nucleated RBC % (0.0-0.2) % PT (11.1-14.7) Seconds INR APTT (22.3-36.8) Seconds Sodium Potassium Chloride Carbon Dioxide Anion Gap BUN Creatinine Estim Creat Clear Calc Estimated GFR Glucose Calcium Total Bilirubin AST ALT Alkaline Phosphatase 98 Troponin I 0.446 H* (0.000-0.034) ng/mL Total Protein Cancelled 8.0 Albumin Cancelled 4.5 TSH (Reflex) 1.250 (0.465-4.68) uIU/mL Urine Color (Yellow) Urine Appearance (Clear) Urine pH (5.0-9.0) Ur Specific [place] (1.001-1.035) Urine Protein (Negative) mg/dL Urine Glucose (UA) (Negative) mg/dL Urine Ketones (Negative) mg/dL Ur Blood (Man) (Negative) Urine Nitrate (Negative) Urine Bilirubin (Negative) Urine Urobilinogen (<2.0) mg/dL Leukocyte Esterase Rfl (Negative) SARY/UL Urine RBC (0-2) /hpf Urine WBC (0-3) /hpf Ur Squamous Epith Cells (Few) /hpf Urine Bacteria /hpf Urine Casts 06/12/24 06/12/24 06/12/24 Range/Units 11:28 13:18 19:55 WBC (4.5-10.0) K/mm3 RBC (4.2-5.4) M/mm3 Hgb (12.0-15.0) g/dL Hct (37.0-47.0) % MCV (80-100) fl MCH (26-34) pg MCHC (32-36) g/dl RDW (11.5-14.5) % Plt Count (150-375) k/mm3 MPV (7.4-10.4) fl Immature Gran % (Auto) (0-0.5) % Neut % (Auto) (45.5-73.1) % Lymph % (Auto) (18.3-44.2) % [place] % (Auto) (2.6-8.5) % Eos % (Auto) (0-4.4) % Baso % (Auto) (0.2-1.2) % Lymph # (Auto) (0.9-3.2) K/mm3 [place] # (Auto) (0.1-0.6) K/mm3 Eos # (Auto) (0-0.3) K/mm3 Baso # (Auto) (0.0-0.1) K/mm3 Abs Immat Gran (auto) (0.00-0.031) K/mm3 Absolute Neuts (auto) (1.3-6.7) K/mm3 Absolute Nucleated RBC (0.0-0.012) K/mm3 Nucleated RBC % (0.0-0.2) % PT (11.1-14.7) Seconds INR APTT 99.0 H (22.3-36.8) Seconds Sodium Potassium Chloride Carbon Dioxide Anion Gap BUN Creatinine Estim Creat Clear Calc Estimated GFR Glucose Calcium Total Bilirubin AST ALT Alkaline Phosphatase Troponin I 0.574 H* D (0.000-0.034) ng/mL Total Protein Albumin TSH (Reflex) (0.465-4.68) uIU/mL Urine Color Yellow (Yellow) Urine Appearance Cloudy H (Clear) Urine pH 6.0 (5.0-9.0) Ur Specific [place] 1.009 (1.001-1.035) Urine Protein Negative (Negative) mg/dL Urine Glucose (UA) Negative (Negative) mg/dL Urine Ketones Negative (Negative) mg/dL Ur Blood (Man) Negative (Negative) Urine Nitrate Negative (Negative) Urine Bilirubin Negative (Negative) Urine Urobilinogen 0.2 (<2.0) mg/dL Leukocyte Esterase Rfl Negative (Negative) SARY/UL Urine RBC 0-2 (0-2) /hpf Urine WBC 0-5 (0-3) /hpf Ur Squamous Epith Cells None seen (Few) /hpf Urine Bacteria None seen /hpf Urine Casts 0-2 <Nilton Mariano MD - Last Filed: 06/13/24 07:30> Lab Results 06/12/24 06/12/24 06/12/24 Range/Units 09:54 09:54 09:54 WBC 14.8 H (4.5-10.0) K/mm3 RBC 4.13 L (4.2-5.4) M/mm3 Hgb 10.8 L (12.0-15.0) g/dL Hct 34.1 L (37.0-47.0) % MCV 82.6 (80-100) fl MCH 26.2 (26-34) pg MCHC 31.7 L (32-36) g/dl RDW 16.0 H (11.5-14.5) % Plt Count 360 (150-375) k/mm3 MPV 10.7 H (7.4-10.4) fl Immature Gran % (Auto) 0.5 (0-0.5) % Neut % (Auto) 84.1 H (45.5-73.1) % Lymph % (Auto) 11.2 L (18.3-44.2) % [place] % (Auto) 4.1 (2.6-8.5) % Eos % (Auto) 0.0 (0-4.4) % Baso % (Auto) 0.1 L (0.2-1.2) % Lymph # (Auto) 1.66 (0.9-3.2) K/mm3 [place] # (Auto) 0.6 (0.1-0.6) K/mm3 Eos # (Auto) 0.0 (0-0.3) K/mm3 Baso # (Auto) 0.0 (0.0-0.1) K/mm3 Abs Immat Gran (auto) 0.07 H (0.00-0.031) K/mm3 Absolute Neuts (auto) 12.5 H (1.3-6.7) K/mm3 Absolute Nucleated RBC 0.000 (0.0-0.012) K/mm3 Nucleated RBC % 0.0 (0.0-0.2) % PT 14.0 (11.1-14.7) Seconds INR 1.1 APTT 28.4 (22.3-36.8) Seconds Sodium Cancelled 140 Potassium Cancelled 3.7 Chloride Cancelled Carbon Dioxide Anion Gap BUN Creatinine Estim Creat Clear Calc Estimated GFR Glucose Calcium Total Bilirubin AST ALT Alkaline Phosphatase Troponin I (0.000-0.034) ng/mL Total Protein Albumin TSH (Reflex) (0.465-4.68) uIU/mL Urine Color (Yellow) Urine Appearance (Clear) Urine pH (5.0-9.0) Ur Specific [place] (1.001-1.035) Urine Protein (Negative) mg/dL Urine Glucose (UA) (Negative) mg/dL Urine Ketones (Negative) mg/dL Ur Blood (Man) (Negative) Urine Nitrate (Negative) Urine Bilirubin (Negative) Urine Urobilinogen (<2.0) mg/dL Leukocyte Esterase Rfl (Negative) SARY/UL Urine RBC (0-2) /hpf Urine WBC (0-3) /hpf Ur Squamous Epith Cells (Few) /hpf Urine Bacteria /hpf Urine Casts 06/12/24 06/12/24 06/12/24 Range/Units 09:54 09:54 09:54 WBC (4.5-10.0) K/mm3 RBC (4.2-5.4) M/mm3 Hgb (12.0-15.0) g/dL Hct (37.0-47.0) % MCV (80-100) fl MCH (26-34) pg MCHC (32-36) g/dl RDW (11.5-14.5) % Plt Count (150-375) k/mm3 MPV (7.4-10.4) fl Immature Gran % (Auto) (0-0.5) % Neut % (Auto) (45.5-73.1) % Lymph % (Auto) (18.3-44.2) % [place] % (Auto) (2.6-8.5) % Eos % (Auto) (0-4.4) % Baso % (Auto) (0.2-1.2) % Lymph # (Auto) (0.9-3.2) K/mm3 [place] # (Auto) (0.1-0.6) K/mm3 Eos # (Auto) (0-0.3) K/mm3 Baso # (Auto) (0.0-0.1) K/mm3 Abs Immat Gran (auto) (0.00-0.031) K/mm3 Absolute Neuts (auto) (1.3-6.7) K/mm3 Absolute Nucleated RBC (0.0-0.012) K/mm3 Nucleated RBC % (0.0-0.2) % PT (11.1-14.7) Seconds INR APTT (22.3-36.8) Seconds Sodium Potassium Chloride 105 Carbon Dioxide Cancelled 20 L Anion Gap Cancelled 15 H BUN Cancelled Creatinine Estim Creat Clear Calc Estimated GFR Glucose Calcium Total Bilirubin AST ALT Alkaline Phosphatase Troponin I (0.000-0.034) ng/mL Total Protein Albumin TSH (Reflex) (0.465-4.68) uIU/mL Urine Color (Yellow) Urine Appearance (Clear) Urine pH (5.0-9.0) Ur Specific [place] (1.001-1.035) Urine Protein (Negative) mg/dL Urine Glucose (UA) (Negative) mg/dL Urine Ketones (Negative) mg/dL Ur Blood (Man) (Negative) Urine Nitrate (Negative) Urine Bilirubin (Negative) Urine Urobilinogen (<2.0) mg/dL Leukocyte Esterase Rfl (Negative) SARY/UL Urine RBC (0-2) /hpf Urine WBC (0-3) /hpf Ur Squamous Epith Cells (Few) /hpf Urine Bacteria /hpf Urine Casts 06/12/24 06/12/24 06/12/24 Range/Units 09:54 09:54 09:54 WBC (4.5-10.0) K/mm3 RBC (4.2-5.4) M/mm3 Hgb (12.0-15.0) g/dL Hct (37.0-47.0) % MCV (80-100) fl MCH (26-34) pg MCHC (32-36) g/dl RDW (11.5-14.5) % Plt Count (150-375) k/mm3 MPV (7.4-10.4) fl Immature Gran % (Auto) (0-0.5) % Neut % (Auto) (45.5-73.1) % Lymph % (Auto) (18.3-44.2) % [place] % (Auto) (2.6-8.5) % Eos % (Auto) (0-4.4) % Baso % (Auto) (0.2-1.2) % Lymph # (Auto) (0.9-3.2) K/mm3 [place] # (Auto) (0.1-0.6) K/mm3 Eos # (Auto) (0-0.3) K/mm3 Baso # (Auto) (0.0-0.1) K/mm3 Abs Immat Gran (auto) (0.00-0.031) K/mm3 Absolute Neuts (auto) (1.3-6.7) K/mm3 Absolute Nucleated RBC (0.0-0.012) K/mm3 Nucleated RBC % (0.0-0.2) % PT (11.1-14.7) Seconds INR APTT (22.3-36.8) Seconds Sodium Potassium Chloride Carbon Dioxide Anion Gap BUN 13 Creatinine Cancelled 0.88 Estim Creat Clear Calc Cancelled 69 Estimated GFR Cancelled Glucose Calcium Total Bilirubin AST ALT Alkaline Phosphatase Troponin I (0.000-0.034) ng/mL Total Protein Albumin TSH (Reflex) (0.465-4.68) uIU/mL Urine Color (Yellow) Urine Appearance (Clear) Urine pH (5.0-9.0) Ur Specific [place] (1.001-1.035) Urine Protein (Negative) mg/dL Urine Glucose (UA) (Negative) mg/dL Urine Ketones (Negative) mg/dL Ur Blood (Man) (Negative) Urine Nitrate (Negative) Urine Bilirubin (Negative) Urine Urobilinogen (<2.0) mg/dL Leukocyte Esterase Rfl (Negative) SARY/UL Urine RBC (0-2) /hpf Urine WBC (0-3) /hpf Ur Squamous Epith Cells (Few) /hpf Urine Bacteria /hpf Urine Casts 06/12/24 06/12/24 06/12/24 Range/Units 09:54 09:54 09:54 WBC (4.5-10.0) K/mm3 RBC (4.2-5.4) M/mm3 Hgb (12.0-15.0) g/dL Hct (37.0-47.0) % MCV (80-100) fl MCH (26-34) pg MCHC (32-36) g/dl RDW (11.5-14.5) % Plt Count (150-375) k/mm3 MPV (7.4-10.4) fl Immature Gran % (Auto) (0-0.5) % Neut % (Auto) (45.5-73.1) % Lymph % (Auto) (18.3-44.2) % [place] % (Auto) (2.6-8.5) % Eos % (Auto) (0-4.4) % Baso % (Auto) (0.2-1.2) % Lymph # (Auto) (0.9-3.2) K/mm3 [place] # (Auto) (0.1-0.6) K/mm3 Eos # (Auto) (0-0.3) K/mm3 Baso # (Auto) (0.0-0.1) K/mm3 Abs Immat Gran (auto) (0.00-0.031) K/mm3 Absolute Neuts (auto) (1.3-6.7) K/mm3 Absolute Nucleated RBC (0.0-0.012) K/mm3 Nucleated RBC % (0.0-0.2) % PT (11.1-14.7) Seconds INR APTT (22.3-36.8) Seconds Sodium Potassium Chloride Carbon Dioxide Anion Gap BUN Creatinine Estim Creat Clear Calc Estimated GFR > 60 Glucose Cancelled 117 H Calcium Cancelled 9.7 Total Bilirubin Cancelled AST ALT Alkaline Phosphatase Troponin I (0.000-0.034) ng/mL Total Protein Albumin TSH (Reflex) (0.465-4.68) uIU/mL Urine Color (Yellow) Urine Appearance (Clear) Urine pH (5.0-9.0) Ur Specific [place] (1.001-1.035) Urine Protein (Negative) mg/dL Urine Glucose (UA) (Negative) mg/dL Urine Ketones (Negative) mg/dL Ur Blood (Man) (Negative) Urine Nitrate (Negative) Urine Bilirubin (Negative) Urine Urobilinogen (<2.0) mg/dL Leukocyte Esterase Rfl (Negative) SARY/UL Urine RBC (0-2) /hpf Urine WBC (0-3) /hpf Ur Squamous Epith Cells (Few) /hpf Urine Bacteria /hpf Urine Casts 06/12/24 06/12/24 06/12/24 Range/Units 09:54 09:54 09:54 WBC (4.5-10.0) K/mm3 RBC (4.2-5.4) M/mm3 Hgb (12.0-15.0) g/dL Hct (37.0-47.0) % MCV (80-100) fl MCH (26-34) pg MCHC (32-36) g/dl RDW (11.5-14.5) % Plt Count (150-375) k/mm3 MPV (7.4-10.4) fl Immature Gran % (Auto) (0-0.5) % Neut % (Auto) (45.5-73.1) % Lymph % (Auto) (18.3-44.2) % [place] % (Auto) (2.6-8.5) % Eos % (Auto) (0-4.4) % Baso % (Auto) (0.2-1.2) % Lymph # (Auto) (0.9-3.2) K/mm3 [place] # (Auto) (0.1-0.6) K/mm3 Eos # (Auto) (0-0.3) K/mm3 Baso # (Auto) (0.0-0.1) K/mm3 Abs Immat Gran (auto) (0.00-0.031) K/mm3 Absolute Neuts (auto) (1.3-6.7) K/mm3 Absolute Nucleated RBC (0.0-0.012) K/mm3 Nucleated RBC % (0.0-0.2) % PT (11.1-14.7) Seconds INR APTT (22.3-36.8) Seconds Sodium Potassium Chloride Carbon Dioxide Anion Gap BUN Creatinine Estim Creat Clear Calc Estimated GFR Glucose Calcium Total Bilirubin 1.5 H AST Cancelled 22 ALT Cancelled 13 Alkaline Phosphatase Cancelled Troponin I (0.000-0.034) ng/mL Total Protein Albumin TSH (Reflex) (0.465-4.68) uIU/mL Urine Color (Yellow) Urine Appearance (Clear) Urine pH (5.0-9.0) Ur Specific [place] (1.001-1.035) Urine Protein (Negative) mg/dL Urine Glucose (UA) (Negative) mg/dL Urine Ketones (Negative) mg/dL Ur Blood (Man) (Negative) Urine Nitrate (Negative) Urine Bilirubin (Negative) Urine Urobilinogen (<2.0) mg/dL Leukocyte Esterase Rfl (Negative) SARY/UL Urine RBC (0-2) /hpf Urine WBC (0-3) /hpf Ur Squamous Epith Cells (Few) /hpf Urine Bacteria /hpf Urine Casts 06/12/24 06/12/24 06/12/24 Range/Units 09:54 09:54 09:54 WBC (4.5-10.0) K/mm3 RBC (4.2-5.4) M/mm3 Hgb (12.0-15.0) g/dL Hct (37.0-47.0) % MCV (80-100) fl MCH (26-34) pg MCHC (32-36) g/dl RDW (11.5-14.5) % Plt Count (150-375) k/mm3 MPV (7.4-10.4) fl Immature Gran % (Auto) (0-0.5) % Neut % (Auto) (45.5-73.1) % Lymph % (Auto) (18.3-44.2) % [place] % (Auto) (2.6-8.5) % Eos % (Auto) (0-4.4) % Baso % (Auto) (0.2-1.2) % Lymph # (Auto) (0.9-3.2) K/mm3 [place] # (Auto) (0.1-0.6) K/mm3 Eos # (Auto) (0-0.3) K/mm3 Baso # (Auto) (0.0-0.1) K/mm3 Abs Immat Gran (auto) (0.00-0.031) K/mm3 Absolute Neuts (auto) (1.3-6.7) K/mm3 Absolute Nucleated RBC (0.0-0.012) K/mm3 Nucleated RBC % (0.0-0.2) % PT (11.1-14.7) Seconds INR APTT (22.3-36.8) Seconds Sodium Potassium Chloride Carbon Dioxide Anion Gap BUN Creatinine Estim Creat Clear Calc Estimated GFR Glucose Calcium Total Bilirubin AST ALT Alkaline Phosphatase 98 Troponin I 0.446 H* (0.000-0.034) ng/mL Total Protein Cancelled 8.0 Albumin Cancelled 4.5 TSH (Reflex) 1.250 (0.465-4.68) uIU/mL Urine Color (Yellow) Urine Appearance (Clear) Urine pH (5.0-9.0) Ur Specific [place] (1.001-1.035) Urine Protein (Negative) mg/dL Urine Glucose (UA) (Negative) mg/dL Urine Ketones (Negative) mg/dL Ur Blood (Man) (Negative) Urine Nitrate (Negative) Urine Bilirubin (Negative) Urine Urobilinogen (<2.0) mg/dL Leukocyte Esterase Rfl (Negative) SARY/UL Urine RBC (0-2) /hpf Urine WBC (0-3) /hpf Ur Squamous Epith Cells (Few) /hpf Urine Bacteria /hpf Urine Casts 06/12/24 06/12/24 06/12/24 Range/Units 11:28 13:18 19:55 WBC (4.5-10.0) K/mm3 RBC (4.2-5.4) M/mm3 Hgb (12.0-15.0) g/dL Hct (37.0-47.0) % MCV (80-100) fl MCH (26-34) pg MCHC (32-36) g/dl RDW (11.5-14.5) % Plt Count (150-375) k/mm3 MPV (7.4-10.4) fl Immature Gran % (Auto) (0-0.5) % Neut % (Auto) (45.5-73.1) % Lymph % (Auto) (18.3-44.2) % [place] % (Auto) (2.6-8.5) % Eos % (Auto) (0-4.4) % Baso % (Auto) (0.2-1.2) % Lymph # (Auto) (0.9-3.2) K/mm3 [place] # (Auto) (0.1-0.6) K/mm3 Eos # (Auto) (0-0.3) K/mm3 Baso # (Auto) (0.0-0.1) K/mm3 Abs Immat Gran (auto) (0.00-0.031) K/mm3 Absolute Neuts (auto) (1.3-6.7) K/mm3 Absolute Nucleated RBC (0.0-0.012) K/mm3 Nucleated RBC % (0.0-0.2) % PT (11.1-14.7) Seconds INR APTT 99.0 H (22.3-36.8) Seconds Sodium Potassium Chloride Carbon Dioxide Anion Gap BUN Creatinine Estim Creat Clear Calc Estimated GFR Glucose Calcium Total Bilirubin AST ALT Alkaline Phosphatase Troponin I 0.574 H* D (0.000-0.034) ng/mL Total Protein Albumin TSH (Reflex) (0.465-4.68) uIU/mL Urine Color Yellow (Yellow) Urine Appearance Cloudy H (Clear) Urine pH 6.0 (5.0-9.0) Ur Specific [place] 1.009 (1.001-1.035) Urine Protein Negative (Negative) mg/dL Urine Glucose (UA) Negative (Negative) mg/dL Urine Ketones Negative (Negative) mg/dL Ur Blood (Man) Negative (Negative) Urine Nitrate Negative (Negative) Urine Bilirubin Negative (Negative) Urine Urobilinogen 0.2 (<2.0) mg/dL Leukocyte Esterase Rfl Negative (Negative) SARY/UL Urine RBC 0-2 (0-2) /hpf Urine WBC 0-5 (0-3) /hpf Ur Squamous Epith Cells None seen (Few) /hpf Urine Bacteria None seen /hpf Urine Casts 0-2 <Meredith Mcmanus PA-C - Last Filed: 06/13/24 01:04> Discharge Plan Discharge Clinical Impression: Pulmonary embolism, Headache, Elevated troponin <Cassidy Ayon APRN - Last Filed: 06/12/24 20:07> Patient Disposition: Acute Care Hospital <Cassidy Ayon APRN - Last Filed: 06/12/24 20:07> Condition: Serious <Cassidy Ayon APRN - Last Filed: 06/12/24 20:07> Patient Language: Yoruba <Cassidy Ayon APRN - Last Filed: 06/12/24 20:07> Prescriptions: No Action levothyroxine 25 mcg tablet thiamine HCl (vitamin B1) 250 mg tablet 250 mg PO DAILY cholecalciferol (vitamin D3) 25 mcg (1,000 unit) capsule 25 mcg PO DAILY ibuprofen 600 mg tablet 600 mg PO TID PRN (Reason: fever or pain) Qty: 30 0RF baclofen 10 mg tablet 10 mg PO TID PRN (Reason: muscle pain) Qty: 10 0RF prednisone 50 mg tablet 50 mg PO DAILY Qty: 7 0RF <Cassidy Ayon APRN - Last Filed: 06/12/24 20:07> Follow-up/Referrals: UNKNOWN,DOCTOR [Primary Care Provider] - <Cassidy Ayon APRN - Last Filed: 06/12/24 20:07>
--- NOTE | 2024-06-12 09:21 | ECG_ITS ---
Test Date: 2024-06-12 10:11:32 Measurements Intervals [place] Rate: 88 P: 46 [place]: 178 QRS: 48 QRSD: 89 T: -12 QT: 352 QTc: 428 Interpretive Statements SINUS RHYTHM NONSPECIFIC T-WAVE ABNORMALITY No previous ECG available for comparison Electronically Signed On 06-12-2024 16:33:52 STE[employer] METER READER by Yulissa Bass M.D.
--- OUTSIDE RECORDS SUMMARY | 2024-06-12 09:34 | XMS_ITS | Patient Health Summary ---
Author Organization [facility] [employer] Address [address] [place] [address] Care Team Providers Care Supervisor Felting Name Role Phone Antione Servin MD Primary Care Provider Unavaila ble Note from [facility],non-owned Affiliates and Associated Physician Practices is amultiple site organization consisting of ambulatory clinics and hospital sitesin [place], [place], [place] and [place]. This disclosure is being madepursuant to the Care Everywhere program and may not contain all information available regarding this patient. Last updated 17.[facility] Allergies * Amoxicillin(Shortness of Breath) -High Criticality [...] HCT PANEL(Performed 03/19/2008) Performed for Normal Delivery (FORMERLY [facility]) * URINALYSIS NO MICROSCOPIC NO CULTURE(Performed 03/19/2008) Performed for Normal Delivery ([facility]) * CULTURE URINE(Performed 03/19/2008) Performed for Normal Delivery ([facility]LY [facility]) * TYPE + SCREEN PANEL(Performed 03/19/2008) Performed for Normal Delivery (FORM[facility]LY [facility]) * CBC W AUTO DIFFERENTIAL(Performed 03/19/2008) Performed for Normal Delivery ([facility]) Results * CARDIAC EKG ORDER (07/12/2017 7:33 [...] without contrast HISTORY: Altered mental status TECHNIQUE: Feao-jj-blnxln magnetic resonance venography of the head with MIP reconstructions FINDINGS: The right transverse sinus is dominant. No sinus thrombosis or cortical vein thrombosis is seen. Procedure Note Nabor Bray MD - 07/09/2017 MR of the head without contrast HISTORY: Altered mental status TECHNIQUE: Pxkk-nv-lgjwmh magnetic resonance venography of the head with [...] - 416 x10E9/L 07/09/2017 4:58 AM CDT [facility] RDW-CV 13.2 12.1 - 14.9 % 07/09/2017 4:58 AM CDT [facility] MPV 9.9 9.4 - 12.9 fl 07/09/2017 4:58 AM CDT [facility] Neutrophils % 53.2 44.0 - 73.0 % 07/09/2017 4:58 AM CDT [facility] Lymphocytes % 35.9 20.0 - 43.0 % 07/09/2017 4:58 AM CDT [facility] Monocytes % 7.6 5.0 - 13.0 % 07/09/2017 4:58 AM CDT [facility] Eosinophils % 2.7 0.0 - 6.0 % 07/09/2017 4:58 AM CDT [facility] Basophils % 0.4 0.0 - 2.0 % 07/09/2017 4:58 AM CDT [facility] Immature Granulocytes 0.2 0 - 1 % 07/09/2017 4:58 AM CDT [facility] Neutrophil Absolute 2.71 2.01 - 7.14 x10E9/L 07/09/2017 4:58 AM CDT [facility] Lymphocytes Absolute 1.83 1.07 - 3.94 x10E9/L 07/09/2017 4:58 AM CDT [facility] Monocytes Absolute 0.39 0.26 - 1.07 x10E9/L 07/09/2017 4:58 AM CDT [facility] Eosinophils Absolute 0.14 0 - 0.47 x10E9/L 07/09/2017 4:58 AM CDT [facility] Basophils Absolute 0.02 0 - 0.08 x10E9/L 07/09/2017 4:58 AM CDT [facility] Immature Granulocytes Absolute 0.01 0.00 - 0.06 x10E9/L 07/09/2017 4:58 AM CDT [facility] nRBC Auto 0 /100 WBC 07/09/2017 4:58 AM CDT [facility] Blood BLOOD SPECIMEN / Unknown Venipuncture / Unknown 07/09/2017 3:57 AM CDT 07/09/2017 4:47 AM CDT Americo Bertrand MD LAB - HEMATOLOGY ORD ERABLES Performing Organization Address City/[facility]/ZIP Co de Phone Number [facility] [address] [place] [address] * BASIC METABOLIC PANEL (CALCIUM TOTAL) (07/09/2017 3:57 AM CDT) Only the most recent of5 resultswithin the time period is included. [facility] Glucose 81 74 - 106 mg/dL 07/09/2017 5:17 AM CDT [facility] Sodium 140 136 - 145 mmol/L 07/09/2017 5:17 AM CDT [facility] Potassium 3.7 3.5 - 5.1 mmol/L 07/09/2017 5:17 AM CDT [facility] Chloride 107 98 - 107 mmol/L 07/09/2017 5:17 AM CDT [facility] CO2 22 22 - 31 mmol/L 07/09/2017 5:17 AM CDT [facility] Calcium 9.3 8.5 - 10.1 mg/dL 07/09/2017 5:17 AM CDT [facility] Anion Gap 11 8 - 16 mmol/L 07/09/2017 5:17 AM CDT [facility] BUN 9 7 - 21 mg/dL 07/09/2017 5:17 AM CDT [facility] Creatinine 0.97 0.50 - 1.30 mg/dL 07/09/2017 5:17 AM CDT [facility] eGFR by MDRD >60 >60 mL/min/1.7 3m2 07/09/2017 5:17 AM CDT [facility] eGFR by MDRD >60 >60 mL/min/1.7 3m2 07/09/2017 5:17 AM CDT [facility] Blood BLOOD SPECIMEN / Unknown Venipuncture / Unknown 07/09/2017 3:57 AM CDT 07/09/2017 4:47 AM CDT Americo Bertrand MD LAB - CHEMISTRY ORDE RABCARLA [facility] [address] [place] [address] * TROPONIN I (07/08/2017 5:58 PM CDT) Only the most recent of11 resultswithin the time period is included. Troponin I <0.015 0.000 - 0.049 ng/mL 07/08/2017 6:18 PM CDT [facility] Blood BLOOD SPECIMEN / Unknown Venipuncture / Unknown 07/08/2017 5:58 PM CDT 07/08/2017 6:00 PM CDT Narrative [facility] - 07/08/2017 6:18 PM CDT [...] Americo Bertrand MD LAB - CHEMISTRY [place] [facility] Organization Address City/State/[facility] Co de Phone Number [facility] [address] [place] [address] * XR CHEST 1VW PORTABLE (07/08/2017 12:04 [...] basilar artery, and branch vessels of the [place] are widely patent without evidence [...] basilar artery, and branch vessels of the [place] are widely patent without evidence [...] POINT OF CARE ORDERABLES [facility] [id number] [place] [address], [facility] [phone] * CREATININE BLOOD - POINT OF CARE (IP) (07/08/2017 11:25 AM CDT) Creatinine POCT 0.96 0.7 - 1.2 mg/dL [facility] QC Verified Yes Yes [facility] POC T TESTING Blood BLOOD SPECIMEN / Unknown 07/08/2017 11:25 AM CDT Americo Bertrand MD LAB - POINT OF CARE ORDERABLES Performing Organization Address [facility] Co de Phone Number [facility] [id number] [place] [address], [facility] [phone] * NT-PRO BNP (07/08/2017 11:23 AM CDT) [...] - CHEMISTRY ORDE TRISTAN Performing Organization Address [facility] Co de Phone Number [facility] [address] [place] [phone] * PT PTT PANEL (07/08/2017 11:23 AM CDT) Only the most recent of5 resultswithin the time period is included. PT 11.0 9.5 - 11.6 sec 07/08/2017 11:43 AM CDT [facility] INR 1.0 0.9 - 1.1 07/08/2017 11:43 AM CDT [facility] PTT 25.6 21.0 - 32.0 sec 07/08/2017 11:43 AM CDT [facility] Blood BLOOD SPECIMEN / Unknown Venipuncture / Unknown 07/08/2017 11:23 AM CDT 07/08/2017 11:28 AM CDT Narrative [facility] - 07/08/2017 11:43 AM CDT Conventional Warfarin Anticoagulant Therapy: INR Reference Range: 2.0-3.0 Intensive Warfarin Anticoagulant Therapy: INR Reference Range: 2.5-3.5 Heparin Therapeutic Range for PTT: 47.7 - 68.6 seconds. Americo Bertrand MD LAB - COAGULATION OR DERABLES Performing Organization Address [facility] Co de Phone Number [facility] [phone] [place] [address] * (ABNORMAL) COMPREHENSIVE METABOLIC PANEL (07/08/2017 11:23 AM CDT) Only the most recent of6 resultswithin the time period is included. [facility] Signature Glucose 86 74 - 106 mg/dL 07/08/2017 11:48 AM CDT [facility] Sodium 139 136 - 145 mmol/L 07/08/2017 11:48 AM CDT [facility] Potassium 3.9 3.5 - 5.1 mmol/L 07/08/2017 11:48 AM CDT [facility] Chloride 108(H) 98 - 107 mmol/L 07/08/2017 11:48 AM CDT [facility] CO2 24 22 - 31 mmol/L 07/08/2017 11:48 AM CDT [facility] Calcium 8.5 8.5 - 10.1 mg/dL 07/08/2017 11:48 AM CDT [facility] Anion Gap 7(L) 8 - 16 mmol/L 07/08/2017 11:48 AM T [facility] BUN 6(L) 7 - 21 mg/dL 07/08/2017 11:48 AM CDT [facility] Creatinine 1.10 0.50 - 1.30 mg/dL 07/08/2017 11:48 AM CDT [facility] Alkaline Phosphatase 88 38 - 126 U/L 07/08/2017 11:48 AM CDT [facility] ALT 20 13 - 61 U/L 07/08/2017 11:48 AM CDT [facility] AST 15 5 - 40 U/L 07/08/2017 11:48 AM CDT [facility] Protein Total 7.6 6.4 - 8.2 gm/dL 07/08/2017 11:48 AM CDT [facility] Albumin 3.7 3.4 - 5.0 gm/dL 07/08/2017 11:48 AM CDT [facility] Bilirubin Total 0.9 0.2 - 1.0 mg/dL 07/08/2017 11:48 AM CDT [facility] eGFR by MDRD 56(L) >60 mL/min/1.7 3m2 07/08/2017 11:48 AM CDT [facility] eGFR by MDRD >60 >60 mL/min/1.7 3m2 07/08/2017 11:48 AM T [facility] Blood BLOOD SPECIMEN / Unknown Venipuncture / Unknown 07/08/2017 11:23 AM CDT 07/08/2017 11:28 AM CDT Americo Bertrand MD LAB - CHEMISTRY [place]IAM HUDSON [facility] [address] [place] [address] * EKG 12-LEAD (07/08/2017 11:18 AM CDT) Only the most recent of5 resultswithin the time period is included. Ventricular Rate 89 BPM [facility] Atrial Rate 89 BPM [facility] P-R Interval 134 ms [facility] QRS Duration ms 80 ms [facility] Q-T Interval ms 364 ms [facility] QTC Calculation (Bezet) 442 ms [facility] M[facility] Calculated P [place] 25 degrees [facility] MUSE Calculated R [place] 40 degrees [facility] M[facility] Calculated T [place] 23 degrees [facility] Interpretation EKG Normal sinus rhythm Normal ECG Confirmed by BLANCHE MORENO MD ([id number]) on 07/08/2017 3:47:49 PM [facility] MUSE 07/08/2017 11:1 8 AM CDT 07/08/2017 3:47 PM CDT Americo Bertrand MD ECG ORDERABLES Performing Organization Address [facility] Co de Phone Number [facility] * [...] - 106 mg/dL 07/09/2017 9:21 AM CDT [facility] Specimen Type UNKNOWN SAMPLE TYPE 07/09/2017 9:21 AM CDT [facility] Blood BLOOD SPECIMEN / Unknown 07/08/2017 11:11 AM CDT 07/09/2017 9:21 AM CDT Americo Bertrand MD LAB - POINT OF CARE ORDERABLES Performing Organization Address City/State/[facility] Co de Phone Number [facility] [address] [place] [phone] * CARDIAC PROCEDURE ORDER (06/20/2017 3:03 AM CDT) Narrative 06/20/2017 3:03 AM CDT Ordered by an unspecified provider. Scanned Document CARDIAC SERVICES ORD ERABLES * (ABNORMAL) PTT (06/14/2017 4:42 PM BROADCAST METEOROLOGIST) Only the most recent of3 resultswithin the time period is included. PTT 55.5(H) 21.0 - 32.0 sec 06/14/2017 5:07 PM BROADCAST METEOROLOGIST [facility] Blood BLOOD SPECIMEN / Unknown Venipuncture / Unknown 06/14/2017 4:42 PM BROADCAST METEOROLOGIST 06/14/2017 4:51 PM BROADCAST METEOROLOGIST Narrative [facility] - 06/14/2017 5:07 PM BROADCAST METEOROLOGIST Heparin Therapeutic Range for PTT: 47.7 - 68.6 seconds. Barbara Wood MD LAB - COAGULATION OR DERABLES [facility] [address] [place] [address] * ECHOCARDIOGRAM 2D WITH DOPPLER (06/14/2017 9:23 AM BROADCAST METEOROLOGIST) Only the most recent of2 resultswithin the time period is included. 06/14/2017 9:23 AM BROADCAST METEOROLOGIST Narrative [facility] - 06/15/2017 11:23 AM BROADCAST METEOROLOGIST [address] [address] Transthoracic Echocardiogram 2D, M-mode, Doppler, and Color Doppler Patient: RADHA MCKEON MR number: [id number] Height: 63 in Weight: 175.6 lb BSA: 1.83 m Study date: 14-Jun-2017 : 1980 Age: 36 years Gender: Female Race: Black Allergies: PENICILLINS, ERYTHROMYCIN, PEANUT-DERIVED Reading Physician: Tori Chandra MD Referring Physician: Tori Chandra MD BUSPERSON: Harmony Lopez ARTHUR Cardiology Group: [facility] Summary: - History: - [...] Procedure: The study was performed in the [facility]. This was a routine study. Room 306 [...] MV A Cody: 0.6 m/s MV Dec Stephenson: 2.2 m/s2 MV DecT: 212.2 ms MV E Cody: 0.5 m/s MV E/A Ratio: 0.8 Septal e': 0.1 m/s Prepared and signed by Tori Chandra MD Signed 15-Jun-2017 11:23:38 Procedure Note Unknown, Provider, - 06/15/[address] [address] Transthoracic Echocardiogram 2D, M-mode, Doppler, and Color Doppler Patient: RADHA MCKEON MR number: [id number] Height: 63 in Weight: 175.6 lb BSA: 1.83 m Study date: 14-Jun-2017 : 1980 Age: 36 years Gender: Female Race: Black Allergies: PENICILLINS, ERYTHROMYCIN, PEANUT-DERIVED Reading Physician: Tori Chandra MD Referring Physician: Tori Chandra MD BUSPERSON: Harmony Lopez ARTHUR Cardiology Group: [facility] Summary: - History: - [...] Procedure: The study was performed in the [facility]. This was a routine study. Room 306 [...] MV A Cody: 0.6 m/s MV Dec Stephenson: 2.2 m/s2 MV DecT: 212.2 ms MV E Cody: 0.5 m/s MV E/A Ratio: 0.8 Septal e': 0.1 m/s Prepared and signed by Tori Chandra MD Signed 15-Jun-2017 11:23:38 Shannan Sorto PA-C ECHO ORDERABLES [facility] * T4 FREE DIRECT REFLEXED (06/14/2017 2:54 AM BROADCAST METEOROLOGIST) T4 Free 1.17 0.65 - 1.34 ng/dL 06/14/2017 3:50 AM BROADCAST METEOROLOGIST [facility] Blood BLOOD SPECIMEN / Unknown Venipuncture / Unknown 06/14/2017 2:54 AM BROADCAST METEOROLOGIST 06/14/2017 3:06 AM BROADCAST METEOROLOGIST Shannan Elaine Macario RECINOS LAB - CHEMISTRY ORDStephany HUDSON Performing Organization Address [facility] Co de Phone Number [facility] [address] [place] [phone] * (ABNORMAL) TSH REFLEX FREE T4 (06/14/2017 2:54 AM BROADCAST METEOROLOGIST) TSH 8.91(H) 0.358 - 3.740 ulU/mL 06/14/2017 3:38 AM BROADCAST METEOROLOGIST [facility] Blood BLOOD SPECIMEN / Unknown Venipuncture / Unknown 06/14/2017 2:54 AM BROADCAST METEOROLOGIST 06/14/2017 3:06 AM BROADCAST METEOROLOGIST Shannan Henry Macario RECINOS LAB - CHEMISTRY ORDStephany HUDSON Performing Organization Address [facility] Co de Phone Number [facility] [phone] [place] [address] * CULTURE VRE (06/13/2017 11:38 PM BROADCAST METEOROLOGIST) Only the most recent of2 resultswithin the time period is included. Culture Negative for vancomycin-resi stant Enterococci (VRE) JASVIR 06/15/2017 6:12 AM BROADCAST METEOROLOGIST [facility] Stool RECTAL SWAB / Unknown Collection / Unknown 06/13/2017 11:38 PM BROADCAST METEOROLOGIST 06/13/2017 11:47 PM BROADCAST METEOROLOGIST Mellissa Tyson MD LAB - MICROBIOLOGY O RDERABLES Performing Organization Address [facility] Co de Phone Number [facility] [address] [place] [address], [facility] [phone] * CULTURE MRSA (06/13/2017 11:38 PM BROADCAST METEOROLOGIST) Only the most recent of2 resultswithin the time period is included. Culture Negative for methicillin-resist ant Staphylococcus aureus (MRSA) JASVIR 06/15/2017 6:12 AM BROADCAST METEOROLOGIST [facility] Microbiology SPECIMEN FROM NASAL FOSSAE / Unknown Collection / Unknown 06/13/2017 11:38 PM BROADCAST METEOROLOGIST 06/13/2017 11:47 PM BROADCAST METEOROLOGIST Mellissa Tyson MD LAB - MICROBIOLOGY O JF Performing Organization Address [facility] Co de Phone Number [facility] [address] [place] [address], [facility] [phone] * ACT - POINT OF CARE (06/13/2017 10:41 PM BROADCAST METEOROLOGIST) ACT POCT 178 125 - 187 Seconds [facility] QC Verified Yes Yes [facility] POC T TESTING Blood BLOOD SPECIMEN / Unknown 06/13/2017 10:41 PM BROADCAST METEOROLOGIST Tori Chandra MD LAB - POINT OF CARE ORDERABLES Performing Organization Address [facility] de Phone Number [facility] [address] [place] [address], [facility] [phone] * ED CRITICAL CARE (06/13/2017 5:00 PM BROADCAST METEOROLOGIST) Narrative Radha Monahan MD - 06/13/2017 5:00 PM BROADCAST METEOROLOGIST Radha Monahan MD 06/13/2017 5:00 PM Critical [...] ORDERABLES * MAGNESIUM BLOOD (06/13/2017 1:58 PM BROADCAST METEOROLOGIST) Magnesium 2.2 1.6 - 2.6 mg/dL 06/13/2017 2:24 PM BROADCAST METEOROLOGIST [facility] Blood BLOOD SPECIMEN / Unknown Venipuncture / Unknown 06/13/2017 1:58 PM BROADCAST METEOROLOGIST 06/13/2017 2:00 PM BROADCAST METEOROLOGIST Radha Monahan MD LAB - CHEMISTRY WILLIAM HUDSON Performing Organization Address [facility]/ZIP Co de Phone Number [facility] [address] [place] [phone] * HCG BLOOD QUALITATIVE (06/13/2017 1:58 PM BROADCAST METEOROLOGIST) HCG Qual Serum Negative Negative 06/13/2017 2:14 PM BROADCAST METEOROLOGIST [facility] Blood BLOOD SPECIMEN / Unknown Venipuncture / Unknown 06/13/2017 1:58 PM BROADCAST METEOROLOGIST 06/13/2017 2:00 PM BROADCAST METEOROLOGIST Radha Monahan MD LAB - CHEMISTRY WILLIAM [employer] Performing Organization Address City/[facility]/ZIP Co de Phone Number [facility] [phone] [place] [address] * CARDIAC CATH PROCEDURE (06/13/2017 12:00 PM BROADCAST METEOROLOGIST) 06/13/2017 12:0 0 PM BROADCAST METEOROLOGIST Narrative Procedure Note Tori Chandra MD - 06/14/2017 1:25 AM CST [facility] CARDIAC CATHETERIZATION PATIENT: RADHA MCKEON MR#: [id number] ADMIT DATE: 06/13/2017 CSN: [id number] PROCEDURE DATE: 06/13/2017 :1980 PHYSICIAN: Tori Chandra MD ROOM: [place] [address] REFERRING PHYSICIAN: RADHA MONAHAN Patient of Dr. Shannan Sorto. INDICATION FOR PROCEDURE: Bilateral saddle pulmonary embolism. PROCEDURE PERFORMED: Pulmonary artery angiography and right heart catheterization and pulmonary artery thrombectomy in the right mainpulmonary artery. TECHNIQUE: After informed consent, the patient was brought to the cathlab. Right femoral vein was anesthestized with 2% lidocaine. The rightfemoral vein was punctured and cannulated with 7-German sheath. A JR4 catheterwas advanced into the [...] treated with SolentOmni Angiojet thrombectomy over a [place] Advantage wire with adequate results.I did distal [...] in participation. TORI CHANDRA MD [place]/MODL #: [id number] cc: Tori Chandra MD Primary Care Physician HARMAN Hamilton MEDICAL/SURGICAL CARDIAC CATHETERIZATION - DP Tori Chandra MD CARDIAC SERVICES ORD ERABLES [facility] MEDQU[facility] * VAS RIGHT VENOUS DUPLEX LE (06/12/2017 11:26 AM BROADCAST METEOROLOGIST) Anatomical Region Laterality Modality Ultrasound 06/12/2017 11:0 1 AM BROADCAST METEOROLOGIST Narrative Procedure Note Grey Villela MD - 06/12/2017 [place] [address] Lower Extremity Venous Ultrasound Report Pat.Name: RADHA MCKEON.ID: [id number] .Date: 06/12/2017 Exam Time: 11:01:00 AM Study Type:LE Venous Age: 9 1980,36Y Sex: FEMALE Sonogrphr: Milton Michele RVT Pat. Stat.:Outpatient Room: ED-10 Reason for Study:R79.89 Elevated D-dimer, M79.661 Tenderness of right calf Procedures:Lower Extremity Venous - Right Visit ID: [id number] SUMMARY: Acute DVT in right leg. FINDINGS: [...] ERABLES * (ABNORMAL) D-DIMER (06/12/2017 9:16 AM BROADCAST METEOROLOGIST) D-Dimer 8.60(H) 0.17 - 0.5 mg/L FEU 06/12/2017 9:[address] [facility] Blood BLOOD SPECIMEN / Unknown Venipuncture / Unknown 06/12/2017 9:16 AM BROADCAST METEOROLOGIST 06/12/2017 9:20 AM BROADCAST METEOROLOGIST Narrative [facility] - 06/12/2017 9:41 AM BROADCAST METEOROLOGIST The [employer] D-Dimer assay is intended for [...] - COAGULATIO N ORDERABLES Performing Organization Address [facility] Co de Phone Number [facility] [phone] [place] [address] * PT-INR (06/12/2017 9:16 AM BROADCAST METEOROLOGIST) PT 9.8 9.5 - 11.6 sec 06/12/2017 9:41 AM BROADCAST METEOROLOGIST [facility] INR 1.0 0.9 - 1.1 06/12/2017 9:[address] [facility] Blood BLOOD SPECIMEN / Unknown Venipuncture / Unknown 06/12/2017 9:16 AM BROADCAST METEOROLOGIST 06/12/2017 9:20 AM BROADCAST METEOROLOGIST Narrative [facility] - 06/12/2017 9:41 AM BROADCAST METEOROLOGIST Conventional Warfarin Anticoagulant Therapy: INR Reference Range: 2.0-3.0 Intensive Warfarin Anticoagulant Therapy: INR Reference Range: 2.5-3.5 Paloma Toledo MD LAB - COAGULATIO N ORDERABLES Performing Organization Address [facility] de Phone Number [facility] [address] [place] [phone] * HCG BETA BLOOD QUANTITATIVE (06/12/2017 9:16 AM BROADCAST METEOROLOGIST) hCG Quantitative <1 mIU/mL 06/13/19 11:[address] [facility] Blood BLOOD SPECIMEN / Unknown Venipuncture / Unknown 06/12/2017 9:16 AM BROADCAST METEOROLOGIST 06/12/2017 9:20 AM BROADCAST METEOROLOGIST Narrative [facility] - 06/12/2017 11:58 AM BROADCAST METEOROLOGIST hCG Reference Range, mIU/mL: Males 0-2.0 Non [...] LAB - CHEMISTRY ORDERABLES Performing Organization Address [facility] Co de Phone Number [facility] [address] [place] [address] * CK BLOOD (06/12/2017 9:16 AM BROADCAST METEOROLOGIST) CK 46 35 - 232 U/L 06/12/2017 9:40 AM BROADCAST METEOROLOGIST [facility] Blood BLOOD SPECIMEN / Unknown Venipuncture / Unknown 06/12/2017 9:16 AM BROADCAST METEOROLOGIST 06/12/2017 9:20 AM BROADCAST METEOROLOGIST Paloma Toledo MD LAB - CHEMISTRY ORDERABLES Performing Organization Address [facility] de Phone Number [facility] [address] [place] [address] * CT HEAD - NON CONTRAST (06/06/2010 1:10 AM BROADCAST METEOROLOGIST) Anatomical Region Laterality Modality Head Computed Tomogra phy 06/06/2010 8:47 AM BROADCAST METEOROLOGIST Impressions 06/06/2010 8:47 AM BROADCAST METEOROLOGIST Normal unenhanced CT brain. Preliminary report was provided by [facility]. Narrative 06/06/2010 8:[address] Brain Noncontrast Indication: Fall, head injury [...] CT brain. Preliminary report was provided by [facility]. Teresa Altamirano MD CT ORDERABLES * XR FOOT 3+ VW LEFT (06/06/2010 12:16 AM BROADCAST METEOROLOGIST) Anatomical Region Laterality Modality Ankle / Foot Radiographic Cyndie ging 06/06/2010 8:54 AM BROADCAST METEOROLOGIST Impressions 06/06/2010 11:02 AM BROADCAST METEOROLOGIST No fracture or dislocation identified. Please see above. Narrative 06/06/2010 11:02 AM BROADCAST METEOROLOGIST EXAMINATION: Left foot 3 views. INDICATION: Left [...] ANKLE 3+ VW LEFT (06/06/2010 12:15 AM BROADCAST METEOROLOGIST) Anatomical Region Laterality Modality Lower Extremity Radiographic Cyndie ging 06/06/2010 8:56 AM BROADCAST METEOROLOGIST Impressions 06/06/2010 8:56 AM BROADCAST METEOROLOGIST No fracture or dislocation identified. Please see above. Narrative 06/06/2010 8:56 AM BROADCAST METEOROLOGIST Examination: Left ankle 3 views Indication: Left [...] POINT OF CARE ORDERABLES [facility] POCT TESTING [id number] [place] [address] * (ABNORMAL) CK + CKMB PANEL (07/03/2009 11:45 AM CDT) Only the most recent of5 resultswithin the time period is included. CK 454(H) 30 - 135 U/L [facility] CK-MB 3.0 0.0 - 5.0 ng/ml [facility] BLOOD SPECIMEN / Unknown 07/03/2009 11:45 AM CDT 07/03/2009 11:54 AM CDT Rita Bocanegra APRN-RETAIL GREETER LAB - CHEMISTRY ORDERABLES Performing Organization Address City/[facility] Co de Phone Number [facility] [address] [place] [address] * CULTURE BLOOD (07/02/2009 1:00 PM CDT) Only the most recent of5 resultswithin the time period is included. Report [facility] Comment:Final - CULTURE No Growth PERIPHERAL BLOOD / Unknown 07/02/2009 1:00 PM CDT 07/02/2009 1:34 PM CDT Adam Mcallister MD LAB - MICROBIOLOGY O RDERABLES Performing Organization Address [facility] de Phone Number [facility] [address] [place] [address] * XR CHEST PA AND LATERAL (ROUTINE) [...] Arterial 7.467(H) 7.35 - 7.45 pH Units [facility] pCO2 Arterial 34.4(L) 35 - 45 mm Hg [facility] pO2 Arterial 155.5(H) 70 - 100 mm Hg [facility] HCO3 Arterial 24.3 22 - 26 mmol/L [facility] Base Excess Arterial 1.2 -2.0 - 2.0 [facility] O2 Saturation Arterial 99.1 97 - 100 % [facility] FI O2 Arterial or Capillary 40.0 % [facility] Temp 37.0 oC [facility] Site R. Brachial [facility] ARTERIAL BLOOD SPECIMEN / Unknown 07/01/2009 9:41 AM CDT 07/01/2009 9:45 AM CDT Kostas Ramos MD LAB - BLOOD GASES OR DERABLES Performing Organization Address City/[facility]/ZIP Co de Phone Number [facility] [address] [place] [phone] * (ABNORMAL) POTASSIUM BLOOD (06/29/2009 3:30 PM CDT) Pathologist [facility] Potassium 3.4(L) 3.6 - 5.0 mmol/L [facility] BLOOD SPECIMEN / Unknown 06/29/2009 3:30 PM CDT 06/29/2009 3:48 PM CDT Nabor Carmona MD LAB - CHEMISTRY WILLIAM HUDSON Performing Organization Address City/[facility]/ZIP Co de Phone Number [facility] [address] [place] [address] * BENZODIAZEPINE URINE CONFIRMATION (06/29/2009 6:40 AM CDT) Pathologist [facility] Benzodiazepines Confirm Urine Negative by GC/MS with a cutoff of 300 ng/mL. ng/ml [facility] URINE / Unknown 06/29/2009 6 :40 AM CDT 06/29/2009 12:43 PM CDT Narrative Resulting Agency Comment Performed By [address] [place] [address] Javad Quintanilla MD LAB - URINE CHEMISTR Y ORDERABLES [facility] [address] [place] [address] * DRUG SCREEN TOX URINE PANEL (06/29/2009 6:40 AM CDT) [facility] Amphetamines Screen Urine Not Detected 1000 ng/mL Cutoff ng/ml [facility] Barbiturates Screen Urine Not Detected 300 ng/mL Cutoff ng/ml [facility] Benzodiazepines Screen Urine Presumptive Positive 300 ng/mL Cutoff ng/ml [facility] Cannabinoids Screen Urine Not Detected 20 ng/mL Cutoff ng/ml [facility] Cocaine Screen Urine Not Detected 300 ng/mL Cutoff ng/ml [facility] Methadone Screen Urine Not Detected 300 ng/mL Cutoff ng/ml [facility] Methaqualone Screen Urine Not Detected 300 ng/mL Cutoff ng/ml [facility] Opiate Screen Urine Not Detected 300 ng/mL Cutoff ng/ml [facility] Phencyclidine Screen Urine Not Detected 25 ng/mL Cutoff ng/ml [facility] Propoxyphene Screen Urine Not Detected 300 ng/mL Cutoff ng/ml [facility] Oxycodone Screen Urine Not Detected 100 ng/mL Cutoff ng/ml [facility] Ecstasy Screen Urine Not Detected 500 ng/mL Cutoff ng/ml [facility] Creatinine Urine Tox 44.7 mg/dl [facility] GC/MS Screen Urine Positive for Lidocaine [facility] Comment GC/MS Screen [facility] Comment: The GC/MS screen is a [...] comp, police investigations, occupational issues, child custody. [facility] URINE / Unknown 06/29/2009 6 :40 AM CDT 06/29/2009 6:48 AM CDT Narrative Resulting Agency Comment Performed By [address] [place] [address] Tiffani Rosa MD LAB - URINE CHEM ISTRY ORDERABLES [facility] [address] [place] [address] * CHEST ONE VIEW (06/29/2009 5:02 AM [...] per preliminary report, findings were discussed by [facility] physician with TELLO Ansari. Narrative [...] per preliminary report, findings were discussed by [facility] physician with TELLO Ansari. Alphonso Horton MD CT ORDERA BLES * (ABNORMAL) B-TYPE NATRIURETIC PEPTIDE (06/29/2009 12:10 AM CDT) BNP 123.9(H) 0.0 - 99.99 pg/ml [facility] Interpretation BNP [facility] Comment: A cutoff of 100 pg/ml [...] AM CDT 06/29/2009 8:40 AM CDT Narrative [facility] - 06/29/2009 9:42 AM CDT gwen Brenda Grullon MD LAB - CHEMISTRY ORDERABLES Performing Organization Address [facility] Co de Phone Number [facility] [address] [place] [phone] * (ABNORMAL) LDH BLOOD (06/29/2009 12:10 AM CDT) LDH 633(H) 313 - 618 U/L [facility] BLOOD SPECIMEN / Unknown 06/29/2009 12:10 AM CDT 06/29/2009 12:26 AM CDT Alphonso Horton MD LAB - GRUPO CORTNEY ORDERABLES Performing Organization Address [facility] de Phone Number [facility] [address] [place] [phone] * HAPTOGLOBIN (06/29/2009 12:10 AM CDT) Haptoglobin 64.9 40 - 240 mg/dl [facility] BLOOD SPECIMEN / Unknown 06/29/2009 12:10 AM CDT 06/29/2009 12:26 AM CDT Alphonso Horton MD LAB - GRUPO CORTNEY ORDERABLES Performing Organization Address [facility] de Phone Number [facility] [address] [place] [address] * (ABNORMAL) LIPID PROFILE (06/29/2009 12:10 AM CDT) Cholesterol 224(H) <200 mg/dl [facility] Triglycerides 101 <150 mg/dl [facility] HDL Cholesterol 41 >=40 mg/dl [facility] VLDL Calculated 20 <=30 mg/dl [facility] LDL Calculated 163(H) <100 mg/dl [facility] Cholesterol Risk Factor 5.46(H) <4.45 [facility] Comment Lipid [facility] Comment: Normal values based on [place] [employer] guidelines. LIPID PROFILE GUIDELINES Total [...] Horton MD LAB - GRUPO CORTNEY ORDERABLES [facility] [address] [place] [address] * URINALYSIS ROUTINE AUTO (06/29/2009 12:05 AM CDT) Source Catheter [facility] Color UA Light Yellow [facility] Character UA Clear [facility] Glucose UA NEGATIVE NEGATIVE mg/dl [facility] Bilirubin UA NEGATIVE NEGATIVE [facility] Ketone UA NEGATIVE NEGATIVE mg/dl [facility] Specific [place] UA <=1.005 1.003 - 1.030 [facility] Blood UA NEGATIVE NEGATIVE [facility] pH UA 5.5 5.0 - 9.0 [facility] Protein UA NEGATIVE NEGATIVE-TR SHADI mg/dl [facility] Urobilinogen UA 0.2 0.2 - 1.0 Delmer Units/dl [facility] Nitrite UA NEGATIVE NEGATIVE [facility] Leukocyte UA NEGATIVE NEGATIVE [facility] URINE SPECIMEN COLLECTION, CATHETERIZED / Unknown 06/29/2009 12:05 AM CDT 06/29/2009 1:15 AM CDT Javad Quintanilla MD LAB - URINALYSIS ORD ERABLES Performing Organization Address [facility] de Phone Number [facility] [address] [place] [address] * HCG URINE QUALITATIVE (06/29/2009 12:05 AM CDT) HCG Qual Urine Negative SEE BELOW [facility] Comment: Normal, Negative Pos, Sensitivity 25 MIU/ML Comment hCG Urine [facility] Comment: For optimal results, it is best to test the first urine voided in the morning because it contains the greatest concentration of hCG. URINE / Unknown 06/29/2009 1 2:05 AM CDT 06/29/2009 1:16 AM CDT Alphonso Horton MD LAB - URI NALYSIS ORDERABLES Performing Organization Address [facility] de Phone Number [facility] [address] [place] [address] * CULTURE SPUTUM (06/29/2009 12:00 AM CDT) Report [facility] Comment: Final - GRAM STAIN <10 Epithelial cells per low power field <10 WBC's per low power field Light rbc's Heavy debris CULTURE Light usual aerobic jordon SPUTUM / Unknown 06/29/2009 06/30/19 10 1:04 AM CDT Alphonso Horton MD LAB - JASVIR ROBIOLOGY ORDERABLES Performing Organization Address [facility]/ZIP Co de Phone Number [facility] [address] [place] [phone] * (ABNORMAL) COAGULATION PANEL W D-DIMER (06/29/2009 12:00 AM CDT) PT 10.7 9.4 - 11.4 seconds [facility] INR 1.01 SEE BELOW [facility] Comment: Conventional anticoagulation 2.0-3.0 Intensive anticoagulation 2.5-3.5 PTT 25.6 24.0 - 33.0 seconds [facility] D-Dimer 10.47(HH) 0.43 - 2.8 mg/L [facility] Fibrinogen 286 150 - 450 mg/dl [facility] Platelet Count 255 150 - 400 K/CUMM [facility] Comment D-Dimer [facility] Comment: Elevated results above the normal range may indicate DIC in the appropriate clinical setting. Serial evaluations may yield information regarding the clinical course. If result is greater than 1.0 mg/L, DVT or PE is possible. BLOOD SPECIMEN / Unknown 06/29/2009 06/29/2009 12:26 AM CDT Alphonso Horton MD LAB - COA GULATION ORDERABLES Performing Organization Address [facility] de Phone Number [facility] [address] [place] [address] * (ABNORMAL) LACTIC ACID BLOOD (06/28/2009 11:45 PM CDT) Lactic Acid 2.2(H) 0.7 - 2.1 mmol/L [facility] BLOOD SPECIMEN / Unknown 06/28/2009 11:45 PM CDT 06/29/2009 12:24 AM CDT Tiffani Rosa MD LAB - CHEMISTRY ORDERABLES Performing Organization Address [facility] Co de Phone Number [facility] [address] [place] [phone] * XR ABDOMEN 1 VW (06/28/2009 11:36 [...] Arterial 7.316(L) 7.35 - 7.45 pH Units [facility] pCO2 Arterial 36.9 35 - 45 mm Hg [facility] pO2 Arterial 219.7(H) 70 - 100 mm Hg [facility] HCO3 Arterial 18.4(L) 22 - 26 mmol/L [facility] Base Excess Arterial -7.0 -2.0 - 2.0 [facility] FI O2 Arterial or Capillary 100.0 % [facility] O2 Saturation Arterial 99.5 97 - 100 % [facility] Hemoglobin Arterial 12.4 12.0 - 16.0 gm% [facility] Oxyhemoglobin Arterial 98.8 94 - 100 % [facility] Carboxyhemoglobin Arterial 0.3 0 - 2 [facility] Methemoglobin Arterial 0.4 0.4 - 1.5 [facility] Vt 500 cc [facility] Mode a/c [facility] Respiratory Rate 14.0 [facility] PEEP 5 [facility] Site R. Radial [facility] Temp 37.0 oC [facility] ARTERIAL BLOOD SPECIMEN / Unknown 06/28/2009 8:24 PM CDT 06/28/2009 8:30 PM CDT Md Wade LAB - BLOOD GASES OR DERABLES [facility] [address] [place] [address] * (ABNORMAL) HGB HCT PANEL (03/19/2008 9:20 PM BROADCAST METEOROLOGIST) Hemoglobin 9.9(L) 12.0 - 16.0 gm/dl [facility] Hematocrit 29.4(L) 36.0 - 48.0 % [facility] BLOOD SPECIMEN / Unknown 03/19/2008 9:20 PM BROADCAST METEOROLOGIST Man Bolden MD LAB - HEMATOLOGY ORD ERABLES [facility] * URINALYSIS DIPSTICK AUTO (03/19/2008 9:25 AM BROADCAST METEOROLOGIST) Pathologist [facility] Color UA YELLOW [facility] Character UA CLEAR [facility] Specific [place] UA 1.015 1.005 - 1.0300 [facility] pH UA 6.5 4.6 - 8.0 pH Units [facility] Leukocyte UA neg Negative /ul [facility] Nitrite UA neg Negative [facility] Protein UA neg Negative mg/dl [facility] Glucose UA norm Normal mg/dl [facility] Ketone UA 50 Negative mg/dl [facility] Urobilinogen UA norm Normal [place] Units [facility] Bilirubin UA neg Negative mg/dl [facility] Blood UA neg Negative /ul [facility] URINE / Unknown 03/19/2008 9 :25 AM BROADCAST METEOROLOGIST Man Bolden MD LAB - URINALYSIS ORD ERABLES [facility] * CULTURE URINE (03/19/2008 9:25 AM BROADCAST METEOROLOGIST) Result [facility] Comment: Final CULTURE >10,000 colonies/ml Mixed gram positive jordon. MIXED CULTURE,NO FURTHER WORK-UP WILL BE PERFORMED RECOLLECT IF INDICATED URINE SPECIMEN COLLECTION, CATHETERIZED / Unknown 03/19/2008 9:25 AM BROADCAST METEOROLOGIST 03/19/2008 9:27 AM BROADCAST METEOROLOGIST Narrative Resulting Agency Comment Performed By [facility] [address] [place] [address] Man Bolden MD LAB - MICROBIOLOGY O RDERABLES Performing Organization Address [facility] Co de Phone Number [facility] * TYPE + SCREEN PANEL (03/19/2008 6:30 AM BROADCAST METEOROLOGIST) ABO Rh A Pos [facility] Antibody Screen Neg [facility] BLOOD SPECIMEN / Unknown 03/19/2008 6:30 AM BROADCAST METEOROLOGIST Man Bolden MD LAB - BLOOD BANK ORD ERABLES Performing Organization Address City/[facility]/ZIP Co de Phone Number [facility] Care Teams Supervisor Felting Relationship Specialty Start Date End Date Antione Servin MD PCP - General Internal Medicine 07/08/17
--- OUTSIDE RECORDS SUMMARY | 2024-06-12 09:34 | XMS_ITS | Clinical Summary ---
Author Organization [facility] Address [address] [place] [address] Care Team Providers Care Truck Driver Helper Name Role Phone None, Provider MD Primary [...] on file Legal Sex Female 10:21 AM HIGH SCHOOL ADMISSIONS REPRESENTATIVE Gender Identity Not on file Sexual Orientation Not on file Last Filed Vital Signs Vital Sign Reading Time Taken Comments Blood Pressure 134/83 02/21/2022 11:32 AM HIGH SCHOOL ADMISSIONS REPRESENTATIVE Pulse 76 02/21/2022 11:32 AM HIGH SCHOOL ADMISSIONS REPRESENTATIVE Temperature 36.3 C (97.3 F) 02/21/2022 11:32 AM HIGH SCHOOL ADMISSIONS REPRESENTATIVE Respiratory Rate 18 02/21/2022 11:32 AM HIGH SCHOOL ADMISSIONS REPRESENTATIVE Oxygen Saturation 100% 02/21/2022 11:32 AM HIGH SCHOOL ADMISSIONS REPRESENTATIVE Inhaled Oxygen Concentration - - Weight 69.9 kg (154 lb) 02/21/2022 11:32 AM HIGH SCHOOL ADMISSIONS REPRESENTATIVE Height 160 cm (5' 3 ) 02/21/2022 11:32 AM HIGH SCHOOL ADMISSIONS REPRESENTATIVE Body Mass Index 27.28 02/21/2022 11:32 AM HIGH SCHOOL ADMISSIONS REPRESENTATIVE Plan of Treatment Health Maintenance Due Date [...] patient's age to complete this topic [place] [address] [place] [address] Care Teams Truck Driver Helper Relationship Specialty Start Date End Date None, Provider, PCP - General UNKNOWN PHYSICIAN SPECIALTY 02/21/22
--- OUTSIDE RECORDS SUMMARY | 2024-06-12 09:34 | XMS_ITS | CONTINUITY OF CARE DOCUMENT ---
Author Name alva calle Address Unknown Organization [facility] Address [address] [place] [address] Phone [phone] Care Team Providers Care Dinkey Mechanic Name Role Phone Prateek WALTER, Rony Unavailable [phone] ALLISON CHAMBERLAIN MD Unavailable ALLISON CHAMBERLAIN MD Unavailable [phone] PROBLEMS Condition Status Date Provider Notes Deep Vein Thrombosis active ? Daysi arguello RN (History of) Pulmonary Embolism active ? Daysi Olivares RN (History of) ENCOUNTERS Date Type Provider Location Encounter Diag nosis - In-person encounter Office Visit Rony Chandra MD [facility] Office Deep Vein ThrombosisPulmonary Embolism VITAL [...] Payer name Policy type / Coverage type [facility] green party ID [employer] [id number] ADVANCE DIRECTIVES Name Date DISCUSSED - NO [...]
--- OUTSIDE RECORDS SUMMARY | 2024-06-12 09:34 | XMS_ITS | Clinical Summary ---
Author Organization [facility] [employer] Address [address] [place] [address] Care Team Providers Care Seed Sales Manager Name Role Phone Antione Servin MD Primary Care Provider Unavaila ble Source Comments [facility],non-owned Affiliates and Associated Physician Practices is amultiple site organization consisting of ambulatory clinics and hospital sitesin [place], [place], [place] and [place]. This disclosure is being madepursuant to the Care Everywhere program and may not contain all information available regarding this patient. Last updated 17.[facility] [employer] Allergies Active Allergy Reactions Criticality Noted Date [...] Description 06/17/2024 9:10 AM CDT Office Visit [facility] [address] [address] [facility] [address] [place] [address] [place] [address] [address] [place] [address] Health Maintenance Due Date Last [...] 12:10 AM CDT) Cholesterol 224(H) <200 mg/dl [facility] Triglycerides 101 <150 mg/dl [facility] HDL Cholesterol 41 >=40 mg/dl [facility] VLDL Calculated 20 <=30 mg/dl [facility] LDL Calculated 163(H) <100 mg/dl [facility] Cholesterol Risk Factor 5.46(H) <4.45 [facility] Comment Lipid [facility] Comment: Normal values based on [place] Heart [employer] guidelines. LIPID PROFILE GUIDELINES Total [...] 06/29/2009 7:56 AM CDT Alphonso Horton MD [facility] ORDERABLES [facility] Organization Address City/State/[facility] Co de Phone Number [facility] [address] [place] [address] from Last 3 Months or Most Recently [...] 7:36 PM 07/05/2009 5:06 AM Care Teams Seed Sales Manager Relationship Specialty Start Date End Date Antione Servin MD PCP - General Internal Medicine 07/08/17
--- OUTSIDE RECORDS SUMMARY | 2024-06-12 09:34 | XMS_ITS | Referral Summary ---
Author Organization [facility] [employer] Address [address] [place] [address] Care Team Providers Care Automatic Grinder Operator Name Role Phone Antione Servin MD Primary Care Provider Unavaila ble Source Comments [facility],non-owned Affiliates and Associated Physician Practices is amultiple site organization consisting of ambulatory clinics and hospital sitesin [place], [place], [place] and [place]. This disclosure is being madepursuant to the Care Everywhere program and may not contain all information available regarding this patient. Last updated 17.[facility] [employer] Allergies Active Allergy Reactions Criticality Noted Date [...] Description 06/17/2024 9:10 AM CDT Office Visit [facility] Orthoped[facility] [address] [address] [place] [address] [place] [address] [facility] [address] [place] [address] Procedures Procedure Name Priority Date/Time [...] [facility] Comment: Normal values based on [place] Heart [employer] guidelines. LIPID PROFILE GUIDELINES Total [...] - GRUPO CORTNEY ORDERABLES Performing Organization Address City/State/[facility] Co de Phone Number [facility] [address] [place] [address] from Last 3 Months or Most Recently [...] 7:36 PM 07/05/2009 5:06 AM Care Teams Automatic Grinder Operator Relationship Specialty Start Date End Date Antione Servin MD PCP - General Internal Medicine 07/08/17
--- OUTSIDE RECORDS SUMMARY | 2024-06-12 09:34 | XMS_ITS | Clinical Summary ---
Author Organization [facility] Address [address] [place] [address] Care Team Providers Care Registered Nurse Cardiovascular Icu Name Role Phone Unavailable Primary Care Provider [...]
[2024-06-12] MEDS: SODIUM CHLORIDE 0.9% IV 1,000 ML 999 ML IV CONT (09:51)
[2024-06-12] MEDS: diphenhydrAMINE HCl INJ 50 MG/ML VIAL 25 MG IV PUSH (09:51)
[2024-06-12] MEDS: dexAMETHasone SOD PHOS INJ 10 MG/ML 1 ML VIAL IV PUSH (09:51)
[2024-06-12] MEDS: METOCLOPRAMIDE HCL INJ 10 MG/2 ML VIAL IV PUSH (09:51)
[2024-06-12] MEDS: KETOROLAC 15 MG/ML VIAL (*BKC) IV PUSH (09:56)
[2024-06-12 10:01] LABS: Basophils Percent Auto 0.1 % (0.2-1.2); Hematocrit 34.1 % (37.0-47.0); Hemoglobin 10.8 g/dL (12.0-15.0); Immature Granulocyte Absolute 0.07 K/mm3 (0.00-0.031); Immature Granulocyte Percent A 0.5 % (0-0.5); Lymphocytes Absolute Auto 1.66 K/mm3 (0.9-3.2); Lymphocytes Percent Auto 11.2 % (18.3-44.2); Mean Corpuscular HGB Conc 31.7 g/dl (32-36); Mean Corpuscular Hemoglobin 26.2 pg (26-34); Mean Corpuscular Volume 82.6 fl (80-100); Mean Platelet Volume 10.7 fl (7.4-10.4); Monocytes Absolute Auto 0.6 K/mm3 (0.1-0.6); Monocytes Percent Auto 4.1 % (2.6-8.5); Neutrophils Absolute Auto 12.5 K/mm3 (1.3-6.7); Neutrophils Percent Auto 84.1 % (45.5-73.1); Platelet Count Result 360 k/mm3 (150-375); Red Blood Count 4.13 M/mm3 (4.2-5.4); White Blood Count 14.8 K/mm3 (4.5-10.0)
[2024-06-12 10:12] LABS: Alanine Aminotransferase 13 U/L (6-35); Albumin Level 4.5 g/dL (3.5-5.1); Alkaline Phosphatase 98 U/L (38-126); Anion Gap 15 mmol/L (4-12); Aspartate Amino Transferase 22 U/L (14-36); Bilirubin,Total 1.5 mg/dL (0.2-1.3); Blood Urea Nitrogen 13 mg/dL (7-17); Calcium 9.7 mg/dL (8.4-10.2); Carbon Dioxide 20 mmol/L (22-30); Chloride 105 mmol/L (98-107); Estimated CRCL calculation 69 ml/min; Estimated Glomerular Filt Rate > 60; Glucose 117 mg/dL (65-110); Potassium 3.7 mmol/L (3.4-5.0); Sodium 140 mmol/L (137-145)
[2024-06-12 10:34] LABS: Troponin I 0.446 ng/mL (0.000-0.034)
[2024-06-12 11:37] LABS: Add Urine Microscopic? YES; Appearance Urine Cloudy (Clear); Bacteria Urine None Seen /hpf; Bilirubin Urine Negative (Negative); Blood Urine Negative (Negative); Color Urine Yellow (Yellow); Glucose Urine UA Negative (Negative); Ketones Urine Negative (Negative); Leukocyte Esterase Ur Negative LEU/UL (Negative); Nitrate Urine Negative (Negative); Non Pathogenic Casts 0-2; Protein Urine Negative (Negative); RBC Urine 0-2 /hpf (0-2); Specific Grav Ur 1.009 (1.001-1.035); Squamous Epithelial Cell Urine None Seen /hpf (Few); Urobilinogen Urine 0.2 mg/dL (<2.0); WBC Urine 0-5 /hpf (0-3)
[2024-06-12 11:49] LABS: INR 1.1; Partial Thromboplastin Time 28.4 Seconds (22.3-36.8)
[2024-06-12] MEDS: HEPARIN SODIUM 5,000 UNITS/ML VIAL 5000 UNITS IV PUSH (12:05)
[2024-06-12] MEDS: HEPARIN SOD/D5W 100 UNITS/ML 25,000 UNITS/250 ML BAG 11 UNITS IV CONT (12:06)
--- NOTE | 2024-06-12 12:20 | ECG_ITS ---
Test Date: 2024-06-12 12:29:37 Measurements Intervals [place] Rate: 87 P: 39 MI: 185 QRS: 38 QRSD: 82 T: -10 QT: 344 QTc: 415 Interpretive Statements SINUS RHYTHM NONSPECIFIC T-WAVE ABNORMALITY ABNORMAL ECG Compared to ECG 06/12/2024 10:11:32 NO DIFFERENT Electronically Signed On 06-13-2024 15:22:53 JOB COST ESTIMATOR by Shakir Villatoro M.D.
--- NOTE | 2024-06-12 12:45 | PC.NURSE ---
attempt x3 to obtain patients 3hr troponin blood draw. myself, Lakeshia JAVED, and Aniya lawton were unsuccessful.
--- NOTE | 2024-06-12 19:52 | PC.NURSE ---
went into patient room to attempt to draw the PTT that was ordered. patient requested that blood be pulled from the IV due to requiring multiple sticks prior to obtain blood. informed patient that we are not allowed to do that, and offered to attempt to draw and if unsuccessful, to ask CRN about calling phlebotomy. patient requested to have phlebotomy called to attempt to draw. talked with TREVIN Friedman, who asked if anyone else in the department would be able to attempt before calling. Ronna JAVED to room to attempt to draw.
--- NOTE | 2024-06-12 20:34 | PC.NURSE ---
spoke with Meredith JAVED at [facility] Patient access and provided a patient update and was given information that she would be going to [facility] in [facility] that they are working on moving patients and beds around but will call when a bed is available
[2024-06-12] MEDS: ACETAMINOPHEN 500 MG TABLET 1000 MG PO (22:51)
[2024-06-16 14:49] LABS: Troponin I 0.574 ng/mL (0.000-0.034)
== END 2024-06-12 22:56 | disposition short-term general hospital (02) ==
PROVIDERS: Emergency Provider Registered Nurse
DX: I26.99 Other pulmonary embolism without acute cor pulmonale (principal); R51.9 Headache, unspecified; R79.89 Other specified abnormal findings of blood chemistry; R94.31 Abnormal electrocardiogram [ECG] [EKG]
CPT/HCPCS: 36415; 70450; 71046; 71275; 80053; 81001; 84443; 84484; 85025; 85610; 85730; 93005; 96361; 96374; 96375; 99285; A9270; J1100; J1200; J1644; J1885; J2765; J7030; Q9967

== ENCOUNTER 2024-12-17 08:47 | Emergency (ER) | payer OTHER, SELFPAY ==
[2024-12-17 08:56] VITALS: BP 102/66; PULSE 74; RESP 18; TEMP 36.3; O2SAT 100
--- NOTE | 2024-12-17 09:15 | ED.URI ---
HPI - URI/Sore Throat General Chief Complaint: Upper Respiratory Infection Stated Complaint: sore throat / congestion / Ear Pain Time Seen by Provider: 12/17/24 09:02 Source: patient and RN notes reviewed Mode of arrival: ambulatory Limitations: no limitations History of Present Illness HPI Narrative: Patient presents today with a one-week history of postnasal drip, rhinorrhea, sinus pressure, right ear pain, cough, nasal congestion. States symptoms have been worsening since onset. Denies shortness of breath or fever. She has tried some xujz-ddn-qodpewg medications such as Zyrtec, Claritin D, and Tylenol without much relief. Denies history of asthma or COPD. States son has similar symptoms. Patient currently on Eliquis for pulmonary embolism diagnosed in June. Related Data Home Medications ?Medication ?Instructions ?Recorded ?Confirmed ?Last Taken ?Type cholecalciferol (vitamin D3) 25 25 mcg PO DAILY 05/04/24 Unknown History mcg (1,000 unit) capsule levothyroxine 25 mcg tablet mcg 05/04/24 Unknown History apixaban 5 mg tablet (Eliquis) mg 12/17/24 Unknown History mecobalamin (vitamin B12) 1,000 1,000 mcg PO DAILY 12/17/24 12/17/24 Unknown History mcg chewable tablet Allergies Allergy/AdvReac Type Severity Reaction Status Date / Time erythromycin base Allergy Severe Swelling Verified 12/17/24 08:56 of Lip/Tongue/Throat Penicillins Allergy Severe Swelling Verified 12/17/24 08:56 of Lip/Tongue/Throat tramadol Allergy Mild Hives Verified 12/17/24 08:56 PMFSH Comments At time of signature, I have reviewed and agree with nursing past medical, surgical, social and family history unless otherwise noted. Please see nursing chart for further information. There is no relevant family history pertinent to the presenting complaint Exam Narrative: GENERAL: Mildly ill-appearing, well-nourished, and in no acute distress. HEAD: Normocephalic, atraumatic. EYES: EOMI. No redness or drainage. Conjunctivae normal. ENT: Mucous membranes pink and moist. Nares congested. Bilateral nasal turbinates are mildly erythematous and edematous with rhinorrhea. TMs normal bilaterally. Throat normal with small amount of postnasal drainage. Uvula midline. NECK: Normal AROM. Supple. No lymphadenopathy. CHEST: No respiratory distress. Clear to auscultation. HEART: Regular rate and rhythm. No murmur appreciated. EXTREMITIES: Normal range of motion. No edema. SKIN: Warm, dry, no rash. Capillary refill normal. Normal skin turgor. NEURO: No focal deficits. Alert and oriented x3. Gait steady. PSYCH: Normal affect. No signs of depression or anxiety. Course Course Level of Care: Express Care Visit Vital Signs Vital signs: Vital Signs Temperature 97.3 F L 12/17/24 08:56 Pulse Rate 74 12/17/24 08:56 Respiratory Rate 18 12/17/24 08:56 Blood Pressure 102/66 12/17/24 08:56 Pulse Oximetry 100 12/17/24 08:56 Oxygen Delivery Room Air 12/17/24 08:56 Temperature 97.3 F L 12/17/24 08:56 Pulse Rate 74 12/17/24 08:56 Respiratory Rate 18 12/17/24 08:56 Blood Pressure 102/66 12/17/24 08:56 Pulse Oximetry 100 12/17/24 08:56 Oxygen Delivery Room Air 12/17/24 08:56 Reviewed MDM - URI/Sore Throat MDM Narrative Medical decision making narrative: 43 year female patient presents today with a 1 history upper respiratory symptoms that have been worsening since onset without fever or shortness of breath. OTC treatment without much improvement. Upon exam, patient has some nasal congestion and swollen nasal turbinates. Lung auscultation normal. No purulent nasal drainage. Symptoms likely viral in etiology. Discussed lnam-bdm-xbusgpj medication use and duration of illness. Will start patient on a burst of prednisone to help with her facial pressure, right ear pain. Patient agrees with plan. Vital signs stable. Anticipatory guidance given. Differential Diagnosis Differential diagnosis: Likely upper respiratory infection, otitis media, sinusitis, viral infection and bronchitis Critical Care Time Critical Care Time Critical Care Time: No Discharge Plan Discharge Clinical Impression: Upper respiratory infection Qualifiers: URI type: unspecified URI Qualified Code(s): J06.9 - Acute upper respiratory infection, unspecified Patient Disposition: Home Condition: Stable Instructions: Upper Respiratory Infection (DC) Additional Instructions: Your symptoms are likely due to a viral illness, which is not treated with antibiotics. Virus symptoms can last for up to 10-14 days. Take Tylenol for pain or fever. Take the prescribed prednisone as directed. May also consider an intranasal steroid such as Flonase to help with your congestion/sinus pressure. Rest and stay hydrated. Follow up with your PCP in 4-5 days if symptoms are not improving. Go to the ER immediately if you develop shortness of breath, difficulty swallowing, development of new fever greater than 100.3, or any other concerning symptoms. Patient Language: Pakistani Prescriptions: New prednisone 50 mg tablet 50 mg PO DAILY 5 Days Qty: 5 0RF No Action levothyroxine 25 mcg tablet cholecalciferol (vitamin D3) 25 mcg (1,000 unit) capsule 25 mcg PO DAILY Eliquis 5 mg tablet mecobalamin (vitamin B12) 1,000 mcg tablet,chewable 1,000 mcg PO DAILY Follow-up/Referrals: Doreen,Chaitanya Diop. [Other] Time of Disposition: 09:18
--- OUTSIDE RECORDS SUMMARY | 2024-12-17 09:17 | XMS_ITS | Clinical Summary ---
Author Organization [facility] Address [address] [place] [id number] Care Team Providers Care Conveyor Maintenance Mechanic Name Role Phone Unavailable Primary Care Provider Unavailabl e Encounters Date Type Department Care Team Description 09/22/2024 External Device Data STL ABSTRACTION Provider, Abstract [...] (1 of 3 - 19+ 3-dose series) 12/07 HPV/Cotest (21-29) 2001 HPV VACCINES (1 - 3-dose SCDM series) 12/23/2007 CERVICAL CANCER SCREENING 2010 HPV/Cotest (30-65) 2010 PAP SMEAR 2010 BREAST CANCER SCREENING 09/12/2024 09/13/2023 INFLUENZA VACCINE (#1) 2024 Procedures Procedure Name Priority Date/Time Associated Diagnosis [...]
--- OUTSIDE RECORDS SUMMARY | 2024-12-17 09:18 | XMS_ITS | Clinical Summary ---
Author Organization [address] Address [address] [place] [id number] Care Team Providers Care Internal Revenue Agent Name Role Phone Chaitanya Logan MD Primary Care Provider [phone] Allergies Active Allergy Reactions Criticality Noted Date Comments Amoxicillin Azithromycin Anaphylaxis High 11/13/2021 Chicken Meat Extract Urticaria Medium 06/14/2024 Erythromycin Unknown High 06/28/2009 Milk Containing Products (Dairy) Unknown 06/15/2024 Peanut Other (See comments),Unknown High 06/28/2009 Peanut Butter Flavor Anaphylaxis,Shortne ss of breath High 06/22/2024 Peanut Oil Unknown High 03/20/2017 Penicillins Shortness of breath,Rash,Urticaria High 06/28/2009 Pork Extract Urticaria Medium 06/14/2024 Soy Stomach upset Low 06/13/2024 Tramadol Nausea only,Rash,Vomiting High 03/20/2017 Tree Nuts Anaphylaxis High 11/13/2021 Venom-Honey Bee Rash Medium 06/13/2024 Medications Eliquis DVT-PE Treat 30D Start 5 mg (74 tabs) tablets,dose pack Take 10 mg by mouth twice daily for one week then 5 mg mouth twice daily there after. Retail pharmacy can substitute 5mg tablets if starter pack not available. 5 Active cholecalciferol (VITAMIN D-3) 2000 unit capsule Take 25 mcg by mouth once 4 Active cyanocobalamin (Vitamin B-12) 100 mcg tablet Take 10 tablets (1,000 mcg total) by mouth daily 4 Active EPINEPHrine 0.3 mg/0.3 mL auto-injection syringe Inject 0.3 mL (0.3 mg total) as directed daily as needed 2 Active levothyroxine (SYNTHROID) 25 mcg tablet Take 1 tablet (25 mcg total) by mouth daily 5 Active Active Problems Problem Noted Date Diagnosed Date Well woman exam with routine gynecological exam 06/22/2024 Assessment & Plan (06/22/2024 12:01 PM CDT): -Well-woman examination. Pap smear obtained today. -Recent hospitalization for repeat bilateral pulmonary embolism. On anticoagulants. Labs drawn by her PCP. -Anemia. 8.7 hemoglobin. Cycles are regular not heavy. -MRI 2023. Uterine fibroids. Discussed today. Compression on bladder. Urgency of urination. Discussed potential surgical treatment. Not a great candidate at this time. To consider -Family history of breast cancer. Recent mammogram negative. Breast implants. Agrees to get genetic testing today. Discussed at length her family history of breast cancer and BRCA. Discussed ramifications of the positive results including increased risk for breast cancer, ovarian cancer, pancreatic cancer, melanoma. Questions were answered. - Pulmonary embolism 06/22/2024 DVT (deep vein thrombosis) in 06/23/19 25 H/O section 06/22/2024 FH: breast cancer 06/22/2024 Fibroids 06/22/2024 H/O abdominoplasty 06/22/2024 H/O bilateral breast implants 06/22/2024 Surgical History Surgery Date Site/Laterality Comments SECTION BARIATRIC SURGERY AUGMENTATION MAMMAPLASTY THROAT SURGERY THROMBECTOMY Medical History Medical History Date Comments Hypothyroidism DVT (deep venous thrombosis) Breast cyst Colon polyps Social History Tobacco Use Types Packs/Day Years Used Date Smoking Tobacco: Never Passive Smoke Exposure: Never Smokeless Tobacco: Never Tobacco Cessation:Counseling Given: Not Answered Comments Unknown Sex and Gender Information Value Date Recorded Sex Assigned at Not on file Legal Sex Female 12:38 PM [employer] Gender Identity Not on file Sexual Orientation Not on file Obstetrics History Para Term AB IAB SAB Ectopic Multiple Livin g Live Births 3 2 2 1 1 2 2 Date Outcome GA Total Labor Labor/2nd/3rd Weight Sex Type Anes PTL Eri A1 A5 Name Clin SAB Term Term Last Filed Vital Signs Vital Sign Reading Time Taken Comments Blood Pressure 108/68 06/22/2024 11:07 AM CDT Pulse 93 08/06/2012 4:39 PM CDT Temperature - - Respiratory Rate - - Oxygen Saturation 95% 08/06/2012 4:54 PM CDT Inhaled Oxygen Concentration - - Weight 73 kg (161 lb) 06/22/2024 11:07 AM CDT Height 158 cm (5' 2.21) 06/22/2024 11:07 AM CDT Body Mass Index 29.25 06/22/2024 11:07 AM CDT Plan of Treatment Health Maintenance Due Date Last Done Comments Depression Screening 1980 Hepatitis C Screening 1980 DTaP/Tdap/Td Vaccine (1 - Tdap) 12/23/1991 Varicella Vaccines (1 of 2 - 13+ 2-dose series) 1993 Hepatitis B Screening 1998 HPV Vaccines (1 - 3-dose SCD M series) 12/23/2007 Breast Cancer Screening-Mammogram 09/22/2024 024 Influenza Vaccine (#1) 2024 Cervical Cancer Screening 06/22/2025 06/22/2024 Regular Well Visit/Exam 18-64 06/22/2025 06/22/2024 Pneumococcal vaccine <65 Aged Out No longer eligible based on patient's age to complete this topic Procedures Procedure Name Priority Date/Time Associated Diagnosis Comments PAP WITH REFLEX TO HIGH RISK HPV Routine 06/22/2024 11:37 AM CDT Well woman exam with routine gynecological exam SCREENING MAMMOGRAM 2D BILATERAL Schedule Routine, Read Routine (OP Routine) 09/23/2023 1:40 PM CDT from Last 3 Months or Most Recently Relevant to Health Maintenance Results * Pap with reflex to High Risk HPV and Genotyping (Cytology Component) (06/22/2024 11:37 AM CDT) Thin prep (Pap test) 06/22/2024 11:37 AM CDT 06/23/2024 8:42 AM CDT Narrative [facility] - 06/29/2024 8:42 AM CDT [facility] results best viewed via link to PDF [address] [address] Tele: Rowan Chiu MD - [facility] CYTOLOGY REPORT Note to Patients: This report may contain a detailed description of human tissue sent by a health care provider to the laboratory for pathologic evaluation. The content of this report is essential for diagnosis and may provide important critical findings. This information may be unfamiliar to patients to review without a medical professional present. It is advised that the patient review this report in the presence of a health care provider who can answer questions and explain the details. Patient Name: LEIGH PARIS Address: [address] [place] [phone] Gender: F : 1980 (Age: 43) Service: Location: N : [id number] [facility] #: [id number] Patient Type: [facility] SPECIMEN Taken: 06/22/2024 Reported: 06/29/2024 Physician(s): Dr. Man Bolden M.D. FINAL DIAGNOSIS: SOURCE OF SPECIMEN - ThinPrep Pap w/ reflex HPV: STATEMENT OF ADEQUACY Source: Cervical/Endocervical - Satisfactory for interpretation - Endocervical /Transformation Zone component present - Case screened using computer assisted imaging technology GENERAL CATEGORIZATION: - Negative for intraepithelial lesion or malignancy lewo/06/29/2024 08:42David Carmichael (ASCP) Report Reviewed and Electronically Signed By David Carmichael ([facility])Clerical Data Follow A; [id number] CLINICAL DIAGNOSIS AND HISTORY Last Menstrual Period: 06/14/2024 REPORT IMAGES AND/OR SCANNED DOCUMENTS ONLY VIEWABLE IN PDF FORMAT The Pap test is a screening test used to aid in the detection of cervical cancer and its precursors. It should not be the sole means by which malignant and premalignant lesions are diagnosed. Both false negative and false positive results may occur. It also has poor sensitivity for the detection of endometrial lesions and should not be used to evaluate suspected endometrial abnormalities. For these reasons it is most important to obtain Pap tests at regular intervals, as recommended by your physician or nurse practitioner. Frozen section, operating room consultation, gross examination and dissection, and case sign out may have been performed in part or completely in the following laboratories: [facility], [address] [place] [address] [facility], [address] [facility], [place] [address]. Man Bolden MD LAB CYTOLOGY ORDERABLES Aida l Result [facility]OLOG[facility] Laboratory Receiving [facility] [place] [address] * Screening Mammogram 2D Bilateral (09/23/2023 1:40 PM CDT) Anatomical Region Laterality Modality Breast Bilateral Mammography Historical Provider IMG MAMMO PROCEDURES Aida l Result from Last 3 Months or Most Recently Relevant to Health Maintenance Insurance [facility] [employer] [place] [employer]PPO Address: [address] [address] Care Teams Internal Revenue Agent Relationship Specialty Start Date End Date Chaitanya Logan MD [address] [place] [address] PCP - General Internal Medicine 09/18/23
== END 2024-12-17 09:20 | disposition home or self-care (01) ==
PROVIDERS: Emergency Provider Nurse Practitioner
DX: J06.9 Acute upper respiratory infection, unspecified (principal); Z86.711 Personal history of pulmonary embolism; Z79.01 Long term (current) use of anticoagulants
CPT/HCPCS: 99213; G0463

== ENCOUNTER 2025-02-14 14:18 | Emergency (ER) | payer OTHER, SELFPAY ==
--- OUTSIDE RECORDS SUMMARY | 2025-02-14 14:25 | XMS_ITS | Clinical Summary ---
Author Organization [facility] Address [address] [place] [phone] Care Team Providers Care Aerial Hurricane Hunter Name Role Phone Unavailable Primary Care Provider Unavailabl e Social History Tobacco Use Types Packs/Day Years [...] to Health Maintenance Insurance BLUE ACCESS CHOICE [facility]
--- OUTSIDE RECORDS SUMMARY | 2025-02-14 14:25 | XMS_ITS | Clinical Summary ---
Author Organization [facility] [employer] Address [address] [facility] [place] [address] Care Team Providers Care Sand Miller Name Role Phone Chaitanya Logan MD Primary Care Provider [phone] Source Comments [facility],non-owned Affiliates and Associated Physician Practices is amultiple site organization consisting of ambulatory clinics and hospital sitesin [place], [place], [place] and [place]. This disclosure is being madepursuant to the Care Everywhere program and may not contain all information available regarding this patient. Last updated 17.[facility] [employer] Allergies Active Allergy Reactions Criticality Noted Date Comments Amoxicillin Shortness of Breath High 07/08/2017 Azithromycin Anaphylaxis High 11/13/2021 Bee Venom Rash Medium 06/13/2024 Erythromycin Unknown High 06/28/2009 Milk-Related Compounds GI Discomfort Low 06/15/2024 Peanut-Derived Unknown High 06/28/2009 Penicillins Shortness of Breath,Rash High 06/28/2009 Pork Allergy Urticaria Medium 06/14/2024 Meat Extract Urticaria Medium 06/14/2024 Soy Allergy GI Discomfort 06/13/2024 Tramadol Rash High 03/20/2017 Tree Nuts Anaphylaxis High 11/13/2021 Medications * Be aware that medications may not be up to date on this document. Alwaysverify current medications with the patient. levothyroxine (Synthroid) 25 MCG tablet Take 1 (one) tablet by mouth once daily 5 Active cyanocobalamin 100 MCG tablet Take 10 (ten) tablets by mouth once daily 4 Active Cholecalciferol 50 MCG (2000 UT) Take 25 mcg by mouth once 4 Active Apixaban (Eliquis DVT/PE Starter Pack) 5 MG tablet Take 10 mg by mouth twice daily for one week then 5 mg mouth twice daily there after. Retail pharmacy can substitute 5mg tablets if starter pack not available. 74 tablet 06/15/2024 3:18 PM CDT Active Active Problems Problem Noted Date Diagnosed Date At high risk for breast cancer 12/28/2024 Overview (12/28/2024): According to information provided by patient at the time of her most recent mammogram, her TC-8 lifetime risk MAY be elevated. Unable to reach patient for formal risk assessment and scheduling with breast specialist. [phone] for scheduling or REF 417 for Epic referral. Acute embolism and thrombosis of unspecified vei n 10/22/2024 Overview (10/22/2024): (History of) History of anemia 10/22/2024 History of pulmonary embolism 10/22/2024 Allergic rhinitis 07/01/2024 Fibroids 06/22/2024 H/O abdominoplasty 06/22/2024 H/O bilateral breast implants 06/22/2024 H/O section 06/22/2024 Hypothyroidism 06/13/2024 Acute saddle pulmonary embolism without acute co r pulmonale 06/12/2024 Right lower quadrant abdominal pain 11/29/2020 Iron deficiency anemia 07/03/2009 Elevated troponin 06/29/2009 Resolved Problems Problem Noted Date Diagnosed Date Resolved Date Altered mental status 07/08/20172024 Facial droop 07/08/2017 06/13/2024 Pulmonary embolus 06/13/2017 06/13/2024 Chest pain 06/13/2017 06/13/2024 Head injury 06/06/2010 06/13/2024 Overview (01/06/2015): Injury, other and unspecifie d, knee, leg, ankle, and foot 06/05/2010 06/13/2024 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 [address] [place] [address] Frida Magallon RN High Risk Follow Up 12/17/2024 11:59 AM CDT - 12/17/2024 11:59 PM CDT Hospital Encounter [facility] - Outside Imaging Discharge Disposition: Home or Self Care 12/17/2024 11:59 AM CDT - 12/17/2024 11:59 PM CDT Hospital Encounter [facility] - Outside Imaging Discharge Disposition: Home or Self Care 12/15/2024 Telephone [facility] Care [address] [facility] [address] [facility] [place] [address] Lalit Noriega MD Patient Requested Call; Question (Update/`); Update 12/14/2024 8:02 AM CDT - 12/14/2024 11:59 PM CDT Hospital Encounter [facility] Care [address] [facility] [address] [place] [address] Discharge Disposition: Home or Self Care 12/08/2024 Telephone [facility] Pain Care [address] [facility] [address] [facility] [place] [address] Lalit Noriega MD Referral 11/25/2024 Telephone [facility] Orthopedics [address] [facility], [address] [place] [address] Lalit Noriega MD Appointment 11/25/2024 Telephone [facility] Neurosciences [address] [facility] [address] [place] [address] José Antonio Cooper MD Establish Care 11/18/2024 Telephone [facility] Pain Care [address] [facility] [address] [facility] [place] [id number] Lalit Noriega MD Results 11/17/2024 12:00 PM CDT - 11/21/2024 11:59 PM CDT Hospital Encounter [facility] [address] [facility] [address] [place] [address] Lalit Noriega MD Discharge Disposition: Home or Self Care from Last 3 Months Family History Medical History Relation Name Comments Cancer - Breast Maternal Grandmother Cancer - Breast Paternal Grandmother Cancer - Breast Sister Relation Name Status Comments Maternal Grandmother Paternal Grandmother Sister Social History Tobacco Use Types Packs/Day Years Used Date Smoking Tobacco: Never Passive Smoke Exposure: Never Tobacco Cessation:Counseling Given: Not Answered Alcohol Use Standard Drinks/Week Comments Yes 0 (1 standard drink = 0.6 oz pur e alcohol) on occassion AUDIT-C Answer Date Recorded Q1: How often do you have a drink containing alcohol? Never 06/13/2024 Q2: How many drinks containi ng alcohol do you have on a typical day when you are drinking? Patient does not drink Q3: How often do you have si x or more drinks on one occasion? Never 06/13/2024 Overall Financial Resource Strain (CARDIA) Answe r Date Recorded How hard is it for you to pa y for the very basics like food, housing, medical care, and heating? Not hard at all 06/13/2024 PHQ-2 Answer Date Recorded Patient Health Questionnaire-2 Score 0 09/24/2024 [facility] [place] [facility] - Occupational Stress Questionnaire Answer Date Recorded Do you feel stress - tense, restless, nervous, or anxious, or unable to sleep at night because your mind is troubled all the time - these days? Only a little 06/13/2024 Hunger Vital Sign Answer Date Recorded Within the past 12 months, y ou worried that your food would run out before you got the money to buy more. Never true 06/14/19 25 Within the past 12 months, t he food you bought just didn't last and you didn't have money to get more. Never true 06/13/2024 PRAPARE - Transportation Answer Date Re corded In the past 12 months, has l ack of transportation kept you from medical appointments or from getting medications? No 11/2024 In the past 12 months, has l ack of transportation kept you from meetings, work, or from getting things needed for daily living? No 06/13/2024 Housing Stability Vital Sign Answer Sandro e Recorded In the last 12 months, was t here a time when you were not able to pay the mortgage or rent on time? No 06/13/2024 In the past 12 months, how m any times have you moved where you were living? 1 06/13/2024 At any time in the past 12 m [facility], were you homeless or living in a detention (including now)? 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 Gender Identity Not on file Sexual Orientation Not on file Last Filed Vital Signs Vital Sign Reading Time Taken Comments Blood Pressure 107/83 10/22/2024 11:13 AM CDT Pulse 71 10/22/2024 11:13 AM CDT Temperature 37 C (98.6 F) 07/07/2024 1:23 PM CDT Respiratory Rate 24 07/07/2024 1:23 PM CDT Oxygen Saturation 98% 07/07/2024 1:23 PM CDT Inhaled Oxygen Concentration 40% 07/01/2009 1 0:00 AM CDT Weight 74.8 kg (165 lb) 12/14/2024 8:04 AM CDT Height 160 cm (5' 3) 12/14/2024 8:04 AM CDT Body Mass Index 29.23 12/14/2024 8:04 AM CDT Plan of Treatment Upcoming Encounters Date Type Department Care Team (Late st Contact Info) Description 02/24/2025 1:45 PM CPR AMBULANCE DRIVER Office Visit [facility] Health Pain Care [address] [place] [address] [place] [address] [facility] [address] [place] [address] Health Maintenance Due Date Last Done Comments HIV SCREENING 12/23/1995 HEPATITIS C SCREENING 12/18/1998 DTAP/TDAP/TD VACCINES (1 - Tdap) 12/23/1999 HEPATITIS B VACCINE (1 of 3 - 19+ 3-dose series) 12/23/1999 HPV VACCINE (1 - 3-dose SCDM series) 12/23/2007 LIPID TESTING 06/29/2014 06/29/2009 COVID-19 VACCINE (1 - season) 2024 INFLUENZA VACCINE (#1) 2024 MAMMOGRAM 12/14/2026 12/14/2024 SCREENING FOR DIABETES 06/16/2027 , 06/14/2024, 06/13/2024, Additional history exists PAP SMEAR 06/23/2027 06/22/2024 ZOSTER VACCINE (1 of 2) 2030 DEPRESSION SCREENING Completed 09/24/2024 HIB VACCINE Aged Out No longer eligi ble based on patient's age to complete this topic MENINGOCOCCAL (Group B) VACCINE SHARED DECISION-MAKING Aged Out No longer eligible based on patient's age to complete this topic MENINGOCOCCAL GROUPS A/C/Y/W VACCINE Aged Out No longer eligible based on patient's age to complete this topic PNEUMOCOCCAL VACCINE Aged Out No long er eligible based on patient's age to complete this topic Procedures Procedure Name Priority Date/Time Associated Diagnosis Comments MAMMO BILAT SCREENING W CECY Routine 12/14/2024 8:26 AM CDT Encounter for screening mammogram for malignant neoplasm of breast EMG WITH NERVE CONDUCTION STUDY Routine 11/17/2024 4:40 PM CDT Left lumbosacral radiculopathy Lumbosacral plexopathy RENAL FUNCTION PANEL AM Draw 06/15/2024 6:46 AM CDT LIPID PROFILE Add on 06/29/2009 12:10 AM CDT Pulm Congest/Hypostasis from Last 3 Months or Most Recently Relevant to Health Maintenance Results * Mammo Bilat Screening W Cecy (12/14/2024 8:26 AM CDT) Anatomical Region Laterality Modality Breast Bilateral Mammography 12/17/2024 2:09 PM CDT Impressions 12/17/2024 2:12 PM CDT IMPRESSION: There is no mammographic evidence of malignancy. OVERALL FINAL ASSESSMENT: BI-RADS Category 1: Negative. Annual screening mammography is recommended. Based upon the information provided by the patient, she has an elevated lifetime risk (=/>20%) for developing breast cancer and meets criteria for supplemental screening with annual breast MRI. Consider referral to the [facility] for formal risk assessment and high risk clinical surveillance. > Interpreting Provider: Desire Moffett MD on 12/17/2024 2:12 PM Narrative 12/17/2024 2:12 PM CDT EXAMINATION: BILATERAL DIGITAL SCREENING MAMMOGRAM AND BILATERAL BREAST TOMOSYNTHESIS HISTORY: Screening. COMPARISON: Serial examinations dating back to 2023. TECHNIQUE: BILATERAL digital breast tomosynthesis (DBT) and synthetic 2D digital mammogram images were obtained (bilateral craniocaudal and mediolateral oblique projections) including computer aided detection (CAD.) BREAST PARENCHYMAL COMPOSITION:Category D: The breasts are extremely dense which lowers the sensitivity of mammography. MAMMOGRAM FINDINGS: There are no new suspicious masses, calcifications, or areas of architectural distortion in either breast, and there has been no significant interval change. There are unchanged bilateral intact subpectoral silicone implants. us Chaitanya Logan MD MAMMO ORDERABLES Final Result * EMG WITH NERVE CONDUCTION STUDY (11/17/2024 4:40 PM CDT) Narrative José Antonio Cooper MD - 11/17/2024 4:40 PM CDT José Antonio Cooper MD 11/17/2024 4:43 PM [facility] [place] [address] [place] [address] Test Date: 11/17/2024 Patient: Radha Randall : 1980 Physician: José Antonio Cooper MD Sex: Female Height: 5' 3 Ref Phys: Lalit Noriega MD ID#: [id number] Weight: 166 lbs. Patient Complaints: Patient is a 43 year old female who was referred to rule out a neuropathy and lumbosacral radiculopathy. Patient presents with complaints of pain, numbness, and tingling in the left leg. Symptoms have been present for 6 months. Nerve Conduction Studies Anti Sensory Summary Table Stim Site NR Peak (ms) Norm Peak (ms) P-T Amp ( V) Norm P-T Amp Site1 Site2 Delta-P (ms) Dist (cm) Cody (m/s) Norm Cody (m/s) Left Sup Peroneal Anti Sensory (Ant Lat Mall) 21.1 C 14 cm 3.2 <4.4 15.0 >5.0 14 cm Ant Lat Mall 3.2 14.0 44 Site 2 3.3 9.5 Left Sural Anti Sensory (Lat Mall) Calf 3.6 <4.0 14.0 >5.0 Calf Lat Mall 3.6 14.0 39 Site 2 3.7 20.1 Motor Summary Table Stim Site NR Onset (ms) Norm Onset (ms) O-P Amp (mV) Norm O-P Amp Amp (Prev) (%) Site1 Site2 Delta-0 (ms) Dist (cm) Cody (m/s) Norm Cody (m/s) Left Peroneal Motor (Ext Dig Brev) Ankle 4.8 <6.1 2.8 >2.5 100.0 B Fib Ankle 7.5 33.5 45 >38 B Fib 12.3 2.3 82.1 Poplt B Fib 1.9 10.0 53 >40 Poplt 14.2 2.2 95.7 Left Tibial Motor (Abd Brooks Brev) 21.1 C Ankle 3.6 <6.1 10.4 >3.0 100.0 Knee Ankle 8.6 42.5 49 >35 Knee 12.2 9.9 95.2 Nerve Conduction Studies Anti Sensory Left/Right Comparison Stim Site L Lat (ms) R Lat (ms) L-R Lat (ms) L Amp ( V) R Amp ( V) L-R Amp (%) Site1 Site2 L Cody (m/s) R Cody (m/s) L-R Cody (m/s) Sup Peroneal Anti Sensory (Ant Lat Mall) 21.1 C 14 cm 3.2 15.0 14 cm Ant Lat Mall 44 Site 2 3.3 9.5 Sural Anti Sensory (Lat Mall) Calf 3.6 14.0 Calf Lat Mall 39 Site 2 3.7 20.1 Motor Left/Right Comparison Stim Site L Lat (ms) R Lat (ms) L-R Lat (ms) L Amp (mV) R Amp (mV) L-R Amp (%) Site1 Site2 L Cody (m/s) R Cody (m/s) L-R Cody (m/s) Peroneal Motor (Ext Dig Brev) Ankle 4.8 2.8 B Fib Ankle 45 B Fib 12.3 2.3 Poplt B Fib 53 Poplt 14.2 2.2 Tibial Motor (Abd Brooks Brev) 21.1 C Ankle 3.6 10.4 Knee Ankle 49 Knee 12.2 9.9 NCV Findings: All nerve conduction studies (as indicated in the following tables) were within normal limits. Medications: ELIQUIS Impression: 1. Mild decrease in amplitude of the proximal peroneal motor CMAP without conduction block. This is of uncertain significance 2. Otherwise normal study. 3. EMG not carried out as patient on Eliquis José Antonio Cooper MD Waveforms: us Lalit Noriega MD NEUROLOGY ORDERABLES Final R esult * (ABNORMAL) RENAL FUNCTION PANEL (06/15/2024 6:46 AM CDT) [facility] Glucose 90 70 - 99 mg/dL 06/15/2024 8:25 AM CDT [facility] Sodium 138 136 - 145 mmol/L 06/15/2024 8:25 AM CDT [facility] Potassium 3.7 3.5 - 5.1 mmol/L 06/15/2024 8:25 AM CDT [facility] Chloride 108(H) 98 - 107 mmol/L 06/15/2024 8:25 AM CDT [facility] CO2 25 22 - 29 mmol/L 06/15/2024 8:25 AM CDT [facility] Calcium 8.6 8.4 - 10.4 mg/dL 06/15/2024 8:25 AM CDT [facility] Anion Gap 5(L) 6 - 16 mmol/L 06/15/2024 8:25 AM CDT [facility] BUN 11 5.3 - 18.7 mg/dL 06/15/2024 8:25 AM CDT [facility] Creatinine 0.92 0.57 - 1.11 mg/dL 06/15/2024 8:25 AM CDT [facility] Albumin 2.9(L) 3.4 - 5.0 gm/dL 06/15/2024 8:25 AM CDT [facility] Phosphorus 4.0 2.5 - 4.5 mg/dL 06/15/2024 8:25 AM CDT [facility] eGFR by CKD-EPI 79(L) >=90 mL/min/1.7 3 m2 06/15/2024 8:25 AM CDT [facility] Blood BLOOD SPECIMEN / Unknown Lab Venipuncture / Unknown 06/15/2024 6:46 AM CDT 06/15/2024 7:49 AM CDT Satnam Esquivel MD LAB - CHEMISTRY ORDERABLE S Final Result Performing Organization Address City/State/[facility] Co de Phone Number [facility] [address] [place] [address] * (ABNORMAL) LIPID PROFILE (06/29/2009 12:10 AM CDT) Cholesterol 224(H) <200 mg/dl [facility] Triglycerides 101 <150 mg/dl [facility] HDL Cholesterol 41 >=40 mg/dl [facility] VLDL Calculated 20 <=30 mg/dl [facility] LDL Calculated 163(H) <100 mg/dl [facility] Cholesterol Risk Factor 5.46(H) <4.45 [facility] Comment Lipid [facility] Comment: Normal values based on [place] [employer] guidelines. LIPID PROFILE GUIDELINES Total [...] 12:10 AM CDT 06/29/2009 7:56 AM CDT [facility] Javan Horton MD LAB - CHEMISTRY O RDERABLES Final Result Performing Organization Address City/State/[facility] Co de Phone Number [facility] [address] [place] [address] from Last 3 Months or Most Recently Relevant to Health Maintenance Insurance [facility] Advance Directives * Full Code (Latest Code Status on File) Date Activated Date Inactivated Comments 06/13/2024 12:36 AM 06/15/2024 5:45 PM * Full Code Date Activated Date Inactivated Comments 07/08/2017 2:12 PM 07/09/2017 6:35 PM * Full Code Date Activated Date Inactivated Comments 06/13/2017 11:23 PM 06/16/2017 3:32 PM * Full Code Date Activated Date Inactivated Comments 06/13/2017 6:47 PM 06/13/2017 11:23 PM * Full Code Date Activated Date Inactivated Comments 06/13/2017 5:43 PM 06/13/2017 6:47 PM Care Teams Sand Miller Relationship Specialty Start Date End Date Chaitanya Logan MD [address] [place] [id number] PCP - General Internal Medicine 06/13/24
--- OUTSIDE RECORDS SUMMARY | 2025-02-14 14:25 | XMS_ITS | Clinical Summary ---
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 Patient Name: LEIGH PARIS Address: [address] [place] [id number] Gender: F : 1980 (Age: 43) Service: Location: N : [id number] [facility] #: [id number] Patient Type: [facility] SPECIMEN Taken: 06/22/2024 Reported: 06/29/2024 Physician(s): Dr. [...] Reviewed and Electronically Signed By David Carmichael (PARNASSUS CAMPUSP)Clerical Data Follow A; [id number] CLINICAL DIAGNOSIS AND [...] part or completely in the following laboratories: [facility], [address] [place] [address] [facility], [address] [facility], [place] [address]. Man Bolden MD LAB CYTOLOGY ORDERABLES Aida l Result PATHOLOGY [facility] Laboratory Receiving [facility] [place] [address] * Screening Mammogram 2D Bilateral (09/23/2023 1:40 PM CDT) Anatomical Region Laterality Modality Breast Bilateral Mammography Historical Provider IMG MAMMO PROCEDURES Aida l Result from Last 3 Months or Most Recently Relevant to Health Maintenance Insurance [facility] Care Teams Music Department Chair Relationship Specialty Start Date End Date Chaitanya Logan MD [id number] [facility] [address] [place] [address] PCP - General Internal Medicine 09/18/23
--- OUTSIDE RECORDS SUMMARY | 2025-02-14 14:25 | XMS_ITS | Clinical Summary ---
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 Gender Identity Not on file Sexual Orientation Not on file Last Filed Vital Signs Vital Sign Reading Time Taken Comments Blood Pressure 134/83 02/21/2022 11:32 AM SPOT WELDER BODY ASSEMBLY Pulse 76 02/21/2022 11:32 AM SPOT WELDER BODY ASSEMBLY Temperature 36.3 C (97.3 F) 02/21/2022 11:32 AM SPOT WELDER BODY ASSEMBLY Respiratory Rate 18 02/21/2022 11:32 AM SPOT WELDER BODY ASSEMBLY Oxygen Saturation 100% 02/21/2022 11:32 AM SPOT WELDER BODY ASSEMBLY Inhaled Oxygen Concentration - - Weight 69.9 kg (154 lb) 02/21/2022 11:32 AM SPOT WELDER BODY ASSEMBLY Height 160 cm (5' 3) 02/21/2022 11:32 AM SPOT WELDER BODY ASSEMBLY Body Mass Index 27.28 02/21/2022 11:32 AM SPOT WELDER BODY ASSEMBLY Plan of Treatment Upcoming Encounters Date Type Department Care Team (Late st Contact Info) Description 03/12/2025 7:20 AM SPOT WELDER BODY ASSEMBLY Office Visit [facility] [address] [facility], [address] [place] [id number] None, Provider, MD Love, Erum Rae MD [address] [place], [place] [id number] Health Maintenance Due Date Last Done Comments Cervical Cancer Screening Pa p Smear (Age 30 to 64) Every 3 Years 1980 Annual Physical 12/23/1983 Hepatitis C 1998 DTaP, Tdap and Td Vaccines ( 1 - Tdap) 12/23/1999 Hepatitis B Vaccines (1 of 3 - 19+ 3-dose series) 12/23/1999 HPV Vaccines (1 - 3-dose SCD M series) 12/23/2007 Cervical Cancer Screening Pa p with HPV Testing (Age 30 to 64) Every 5 Years 2010 Cervical Cancer Screening with HPV 2010 Mammogram Screening 2020 COVID-19 Vaccine ( - 2024-2 6 season) 2024 Influenza Adult (#1) 2025 Hepatitis A Vaccines Aged Out No long er eligible based on patient's age to complete this topic Meningococcal B Vaccine Aged Out No l onger eligible based on patient's age to complete this topic Meningococcal Vaccine Aged Out No jagdish varghese eligible based on patient's age to complete this topic Pneumococcal Vaccine: Pediat rics (0 to 5 Years) and At-Risk Patients (6 to 49 Years) Aged Out No longer eligible b ased on patient's age to complete this topic RSV Immunizations Under 20 Months Aged Out No longer eligible based on patient's age to complete this topic Insurance [facility] Care Teams X Ray Operator Relationship Specialty Start Date End Date None, Provider, PCP - General UNKNOWN PHYSICIAN SPECIALTY 02/21/22
[2025-02-14 14:29] VITALS: BP 115/75; PULSE 81; RESP 18; TEMP 36.6; O2SAT 100
--- NOTE | 2025-02-14 14:43 | ED.URI ---
HPI - URI/Sore Throat General Chief Complaint: Upper Respiratory Infection Stated Complaint: URI Time Seen by Provider: 02/14/25 14:33 Source: patient and RN notes reviewed Mode of arrival: ambulatory Limitations: no limitations History of Present Illness HPI Narrative: 44-year-old female patient presents today with a one-week history of sore throat, sinus congestion, cough, subjective fever. Denies shortness of breath, difficulty swallowing. She has tried Mucinex, cough drops, and Claritin D without much improvement and currently rates her pain 5/10. No history of asthma or COPD. She is a nonsmoker. Related Data Home Medications ?Medication ?Instructions ?Recorded ?Confirmed ?Last Taken ?Type cholecalciferol (vitamin D3) 25 25 mcg PO DAILY 05/04/24 Unknown History mcg (1,000 unit) capsule levothyroxine 25 mcg tablet mcg 05/04/24 Unknown History apixaban 5 mg tablet (Eliquis) mg 12/17/24 Unknown History mecobalamin (vitamin B12) 1,000 1,000 mcg PO DAILY 12/17/24 12/17/24 Unknown History mcg chewable tablet Allergies Allergy/AdvReac Type Severity Reaction Status Date / Time erythromycin base Allergy Severe Swelling Verified 02/14/25 14:30 of Lip/Tongue/Throat Penicillins Allergy Severe Swelling Verified 02/14/25 14:30 of Lip/Tongue/Throat tramadol Allergy Mild Hives Verified 02/14/25 14:30 PMFSH Past Medical History Medical History (Updated 02/14/25 @ 14:58 by Joana Garay, LOGISTICAL ENGINEER, BUILDING CUSTODIAN) Pulmonary embolism Comments At time of signature, I have reviewed and agree with nursing past medical, surgical, social and family history unless otherwise noted. Please see nursing chart for further information. There is no relevant family history pertinent to the presenting complaint Exam Narrative: GENERAL: Mildly ill-appearing, well-nourished, and in no acute distress. HEAD: Normocephalic, atraumatic. EYES: EOMI. No redness or drainage. Conjunctivae normal. ENT: Mucous membranes pink and moist. Nares congested with rhinorrhea. TMs normal bilaterally. Throat normal. Uvula midline. Hoarse NECK: Normal AROM. Supple. No lymphadenopathy. CHEST: No respiratory distress. Clear to auscultation. HEART: Regular rate and rhythm. No murmur appreciated. EXTREMITIES: Normal range of motion. No edema. SKIN: Warm, dry, no rash. Capillary refill normal. Normal skin turgor. NEURO: No focal deficits. Alert and oriented x3. Gait steady. PSYCH: Normal affect. No signs of depression or anxiety. Course Course Level of Care: Express Care Visit Vital Signs Vital signs: Vital Signs Temperature 97.9 F 02/14/25 14:29 Pulse Rate 81 02/14/25 14:29 Respiratory Rate 18 02/14/25 14:29 Blood Pressure 115/75 02/14/25 14:29 Pulse Oximetry 100 02/14/25 14:29 Oxygen Delivery Room Air 02/14/25 14:29 Temperature 97.9 F 02/14/25 14:29 Pulse Rate 81 02/14/25 14:29 Respiratory Rate 18 02/14/25 14:29 Blood Pressure 115/75 02/14/25 14:29 Pulse Oximetry 100 02/14/25 14:29 Oxygen Delivery Room Air 02/14/25 14:29 Reviewed MDM - URI/Sore Throat MDM Narrative Medical decision making narrative: 44-year-old female patient presents today with a one-week history of sore throat, sinus congestion, cough, subjective fever. Denies shortness of breath, difficulty swallowing. She has tried Mucinex, cough drops, and Claritin D without much improvement and currently rates her pain 5/10. No history of asthma or COPD. She is a nonsmoker. Upon exam, patient is mildly ill appearing a hoarse voice and nasal congestion with rhinorrhea. Throat appears normal. Rapid strep negative. Culture pending. Symptoms likely viral in etiology. Discussed [id number] medication use and duration of illness. Patient states worst sx is her throat pain. She received 10mg dose of decadron prior to discharge. She is unable to take NSAIDs as she is on Eliquis for previous PE. No prescription medications indicated at this time. Anticipatory guidance given. Vital signs stable. Differential Diagnosis Differential diagnosis: Likely upper respiratory infection, otitis media, sinusitis, viral infection and other (Laryngitis, strep throat) Lab Data Attestation: I reviewed the patient's lab results. Lab results narrative: Rapid strep negative Labs: Lab Results 02/14/25 Range/Units 14:44 POC Grp A Strep Screen Negative (Negative) Critical Care Time Critical Care Time Critical Care Time: No Discharge Plan Discharge Clinical Impression: Upper respiratory infection Qualifiers: URI type: unspecified URI Qualified Code(s): J06.9 - Acute upper respiratory infection, unspecified Patient Disposition: Home Condition: Stable Instructions: Upper Respiratory Infection (DC) Additional Instructions: Your rapid strep swab was negative today at [facility]. You will be notified in a few days if the culture comes back positive for strep, and appropriate antibiotics will be called in for you at that time. Your symptoms are likely due to a viral illness, which is not treated with antibiotics. Viral symptoms can be present for up to 7-10 days. Take Tylenol for fever or pain. Consider starting a steroid nasal spray such as Flonase to help with your nasal congestion and sinus pressure. Rest and stay hydrated. Follow up with your PCP in 4-5 days if symptoms are not improving. Go to the ER immediately if you have any difficulty breathing or swallowing. Patient Language: Thai Prescriptions: No Action levothyroxine 25 mcg tablet cholecalciferol (vitamin D3) 25 mcg (1,000 unit) capsule 25 mcg PO DAILY Eliquis 5 mg tablet mecobalamin (vitamin B12) 1,000 mcg tablet,chewable 1,000 mcg PO DAILY Follow-up/Referrals: UNKNOWN,DOCTOR [Primary Care Provider] Time of Disposition: 14:58
[2025-02-14 14:46] LABS: EDSTREPNEGPOS1 Negative (Negative)
[2025-02-14] MEDS: dexAMETHasone SOD PHOS INJ 10 MG/ML 1 ML VIAL IM (14:57)
== END 2025-02-14 15:01 | disposition home or self-care (01) ==
PROVIDERS: Emergency Provider Nurse Practitioner
DX: J06.9 Acute upper respiratory infection, unspecified (principal); Z86.711 Personal history of pulmonary embolism; Z79.01 Long term (current) use of anticoagulants
CPT/HCPCS: 87081; 87880; 96372; 99213; G0463; J1100